=== PATIENT | male | born 1950 | race Caucasian/White ===

== ENCOUNTER 2019-10-29 07:46 | Outpatient (CLI) | payer MEDICARE, SELFPAY ==
[2019-10-29 08:04] LABS: Add Urine Microscopic? NO; Appearance Urine Clear (Clear); Bilirubin Urine Negative (Negative); Blood Urine Negative (Negative); Color Urine Yellow (Yellow); Glucose Urine UA Negative (Negative); Ketones Urine Negative (Negative); Leukocyte Esterase Ur Negative (Negative); Nitrate Urine Negative (Negative); Protein Urine Negative (Negative)
[2019-10-29 08:25] LABS: Creatinine Urine 136.07 mg/dL (40-278); MALB Creatinine Ratio 3.6 mg/g (0-30)
[2019-10-29 08:27] LABS: Hemoglobin A1C 6.2 % (<5.7)
[2019-10-29 09:12] LABS: Alanine Aminotransferase 23 U/L (16-63); Albumin Level 3.8 g/dL (3.4-5.0); Alkaline Phosphatase 70 U/L (46-116); Anion Gap 15.1 mmol/L (7-16); Aspartate Amino Transferase 17 U/L (15-37); Bilirubin,Total 0.5 mg/dL (0.00-1.00); Blood Urea Nitrogen 18 mg/dL (7-18); Calcium 9.1 mg/dL (8.5-10.1); Carbon Dioxide 25 mmol/L (21-32); Chloride 103 mmol/L (98-108); Cholesterol 176 mg/dL (0-200); Creatine Kinase 121 U/L (39-308); Estimated Glomerular Filt Rate > 60; Glucose 113 mg/dL (70-99); HDL Direct 54 mg/dL (40-60); LDL Cholesterol Calculated 105 mg/dL (<130); Osmolality Calculated 290 mOsm/kg (285-295); Potassium 4.1 mmol/L (3.5-5.1); Prostate Specific Antigen 2.4 ng/mL (< OR = 4.0); Sodium 139 mmol/L (136-145); Triglycerides 86 mg/dL (0-150)
== END 2019-10-29 07:47 | disposition home or self-care (01) ==
LOC: CHSLAB 07:47
PROVIDERS: PCP Internal Medicine; Visit Provider Internal Medicine
DX: E78.2 Mixed hyperlipidemia (principal); I10 Essential (primary) hypertension; E11.9 Type 2 diabetes mellitus without complications; Z12.5 Encounter for screening for malignant neoplasm of prostate
CPT/HCPCS: 36415; 80053; 80061; 81003; 82043; 82550; 83036; 84153; G0103

== ENCOUNTER 2019-11-08 12:30 | Outpatient (CLI) | payer MEDICARE, SELFPAY ==
--- NOTE | 2019-12-03 07:58 | WPDHOLTEREM ---
Holter/Event Monitor Holter/Event Monitor Date of procedure: 11/09/19 Procedure Type: 30 day event monitor Indications: Palpitations Conclusion: 1. 24 day event monitor between 11/09/19-12/02/19. There are 33 available transmissions for analysis. 2. Predominant rhythm is sinus rhythm. HR range 43-177 bpm; average HR 68 bpm. 3. There are intermittent premature supraventricular complexes with total burden of 4%. There are 4 episodes of atrial tachycardia, fastest at 122 bpm and longest lasting 6 beats. 4. There are occasional premature ventricular complexes with total burden of <1%. There are 3 episodes of vetricular tachycardia, fastest at 177 bpm and longest lasting 8 beats. 5. No significant pauses greater than 2 seconds. 6. No symptoms available for correlation.
== END 2019-11-08 12:31 | disposition home or self-care (01) ==
LOC: CHSCARD 12:32
PROVIDERS: PCP Internal Medicine; Visit Provider Internal Medicine
DX: I49.9 Cardiac arrhythmia, unspecified (principal); R42 Dizziness and giddiness
CPT/HCPCS: 99199

== ENCOUNTER 2019-12-09 10:01 | Outpatient (CLI) | payer MEDICARE, SELFPAY ==
[2019-12-09 10:14] LABS: Basophils Absolute Auto 0.05 K/mm3 (0.00-0.10); Basophils Percent Auto 0.8 % (0.0-1.0); Eosinophils Absolute Auto 0.22 K/mm3 (0.02-0.50); Eosinophils Percent Auto 3.6 % (1.0-6.0); Hematocrit 45.4 % (37.0-46.0); Hemoglobin 15.6 g/dL (12.4-15.3); Immature Granulocyte Absolute 0.02 K/mm3 (0.00-0.00); Immature Granulocyte Percent A 0.3 % (0.0-0.0); Lymphocytes Absolute Auto 1.78 K/mm3 (1.10-4.50); Lymphocytes Percent Auto 29.5 % (18.0-42.0); Mean Corpuscular HGB Conc 34.4 g/dL (32.0-36.0); Mean Corpuscular Hemoglobin 30.8 pg (27.0-31.0); Mean Corpuscular Volume 89.5 fL (78.0-102.0); Mean Platelet Volume 8.6 fl (8.7-11.0); Monocytes Absolute Auto 0.49 K/mm3 (0.10-0.90); Monocytes Percent Auto 8.1 % (2.0-11.0); Neutrophils Absolute Auto 3.5 K/mm3 (1.7-7.2); Neutrophils Percent Auto 57.7 % (50.0-70.0); Platelet Count Result 238 K/mm3 (150-420); Red Blood Count 5.07 M/mm3 (4.70-6.10); Red Cell Distribution Width 12.5 % (11.6-14.4)
[2019-12-09 10:58] LABS: Anion Gap 11.3 mmol/L (7-16); Blood Urea Nitrogen 12 mg/dL (7-18); Calcium 9.3 mg/dL (8.5-10.1); Carbon Dioxide 26 mmol/L (21-32); Chloride 106 mmol/L (98-108); Estimated Glomerular Filt Rate 60; Free T3 2.76 pg/mL (2.18-3.98); Free T4 Free Thyroxine 1.07 ng/dL (0.76-1.46); Glucose 139 mg/dL (70-99); Magnesium 2.2 mg/dL (1.8-2.4); Osmolality Calculated 289 mOsm/kg (285-295); Potassium 4.3 mmol/L (3.5-5.1); Sodium 139 mmol/L (136-145); Thyroid Stimulating Hormone 2.02 uIU/mL (0.36-3.74)
== END 2019-12-09 10:02 | disposition home or self-care (01) ==
PROVIDERS: PCP Internal Medicine; Visit Provider Internal Medicine
DX: I47.2 Ventricular tachycardia (principal); R53.83 Other fatigue
CPT/HCPCS: 36415; 80048; 83735; 84439; 84443; 84481; 85025

== ENCOUNTER 2019-12-16 12:04 | Outpatient (CLI) | payer MEDICARE, SELFPAY ==
--- NOTE | 2019-12-16 12:13 | ECHO_ITS ---
Patient Info Name: Giovanny Mckeon Age: 69 years : 1950 Gender: Male Ht: 73 in Wt: 235 lbs BSA: 2.37 m2 HR: 65 bpm BP: 152 / 68 mmHg Technical Quality: Fair Exam Date: 12/16/2019 12:26 PM Exam Location: [facility] Patient Status: Outpatient Admit Date: 12/16/2019 Staff Ordering Physician: Alicia, Meño Adan M.D. Lacing String Cutter: Melida Ferrari RDCS Attending Provider: Alicia, Meño Adan M.D. Referring Physician: Alicia BOONE; Exam Type: CA echo doppler color flow Study Info Indications I50.9 - Heart failure, unspecified Complete two-dimensional, color flow and Doppler transthoracic echocardiogram is performed. Strain analysis performed. History/Risk Factors Hypertension: Yes Obesity: Yes Family History: Coronary Artery Disease Summary 1. Left ventricular chamber dimension is normal. 2. Left ventricular systolic function is normal, estimated at 55-60%. 3. There is moderately increased left ventricular wall thickness. 4. The left ventricular diastolic function is abnormal. 5. E/e' 12 is mildly elevated. 6. Left atrial chamber dimension is mildly enlarged. 7. There is mild tricuspid valve regurgitation. 8. No pulmonary hypertension, estimated pulmonary arterial systolic pressure is 30 mmHg. Left Ventricle E/e' 12 is mildly elevated. Left ventricular chamber dimension is normal. Left ventricular systolic function is normal, estimated at 55-60%. There is moderately increased left ventricular wall thickness. The left ventricular diastolic function is abnormal. Right Ventricle Right ventricular chamber dimension is normal. Right ventricular systolic function is normal. Left Atria Left atrial chamber dimension is mildly enlarged. Right Atria Right atrial chamber dimension is normal. Aortic Valve The aortic valve is trileaflet. There is no aortic valve stenosis. There is no aortic valve regurgitation. Pulmonic Valve There is no pulmonic regurgitation. Mitral Valve There is no mitral valve stenosis. There is no mitral valve regurgitation. Tricuspid Valve There is mild tricuspid valve regurgitation. No pulmonary hypertension, estimated pulmonary arterial systolic pressure is 30 mmHg. Pericardium/Pleural There is no pericardial effusion. Inferior Vena Cava Normal inferior vena cava with >50% collapse upon inspiration consistent with normal right atrial pressure, 5 mmHg. Aorta The aortic root size at the sinus of Valsalva is normal. Left Ventricular Outflow Tract Name Value Normal LVOT 2D LVOT Diameter 2.0 cm LVOT Doppler LVOT Peak Velocity 87 cm/s LVOT Peak Gradient 3 mmHg LVOT Mean Gradient 2 mmHg LVOT VTI 19 cm LVOT VTI/AV VTI Ratio 0.7 LVOT Stroke Volume 61 ml Mitral Valve Name Value Normal
== END 2019-12-16 12:05 | disposition home or self-care (01) ==
LOC: CHSIMG 12:05
PROVIDERS: PCP Internal Medicine; Visit Provider Specialist
DX: I47.0 Re-entry ventricular arrhythmia (principal)
CPT/HCPCS: 93306

== ENCOUNTER 2020-02-01 12:03 | Outpatient (CLI) | payer MEDICARE, SELFPAY ==
[2020-02-01 12:17] LABS: Basophils Absolute Auto 0.03 K/mm3 (0.00-0.10); Basophils Percent Auto 0.3 % (0.0-1.0); Eosinophils Percent Auto 2.2 % (1.0-6.0); Hematocrit 37.7 % (37.0-46.0); Hemoglobin 12.4 g/dL (12.4-15.3); Immature Granulocyte Absolute 0.05 K/mm3 (0.00-0.00); Immature Granulocyte Percent A 0.6 % (0.0-0.0); Lymphocytes Absolute Auto 1.24 K/mm3 (1.10-4.50); Lymphocytes Percent Auto 13.7 % (18.0-42.0); Mean Corpuscular HGB Conc 32.9 g/dL (32.0-36.0); Mean Corpuscular Hemoglobin 30.3 pg (27.0-31.0); Mean Corpuscular Volume 92.2 fL (78.0-102.0); Mean Platelet Volume 7.9 fl (8.7-11.0); Monocytes Absolute Auto 0.77 K/mm3 (0.10-0.90); Monocytes Percent Auto 8.5 % (2.0-11.0); Neutrophils Absolute Auto 6.8 K/mm3 (1.7-7.2); Neutrophils Percent Auto 74.7 % (50.0-70.0); Platelet Count Result 430 K/mm3 (150-420); Red Blood Count 4.09 M/mm3 (4.70-6.10); Red Cell Distribution Width 13.2 % (11.6-14.4); White Blood Count 9.1 K/mm3 (4.8-10.8)
[2020-02-01 12:50] LABS: BNP 164 pg/mL (0-100)
[2020-02-01 13:01] LABS: Alanine Aminotransferase 41 U/L (16-63); Albumin Level 3.5 g/dL (3.4-5.0); Alkaline Phosphatase 117 U/L (46-116); Anion Gap 9 mmol/L (8-16); Aspartate Amino Transferase 16 U/L (15-37); Bilirubin,Total 0.4 mg/dL (0.00-1.00); Blood Urea Nitrogen 16 mg/dL (7-18); Calcium 9.1 mg/dL (8.5-10.1); Carbon Dioxide 26 mmol/L (21-32); Chloride 104 mmol/L (98-108); Estimated Glomerular Filt Rate 55; Ferritin 180 ng/mL (26-388); Free T3 1.78 pg/mL (2.18-3.98); Free T4 Free Thyroxine 1.13 ng/dL (0.76-1.46); Glucose 100 mg/dL (70-99); Iron 41 ug/dL (65-175); Magnesium 2.1 mg/dL (1.8-2.4); Osmolality Calculated 289 mOsm/kg (285-295); Percent Iron Saturation 16 % (12-57); Potassium 4.4 mmol/L (3.5-5.1); Sodium 139 mmol/L (136-145); Thyroid Stimulating Hormone 4.12 uIU/mL (0.36-3.74); Total Protein 6.9 g/dL (6.4-8.2)
== END 2020-02-01 12:04 | disposition home or self-care (01) ==
PROVIDERS: PCP Internal Medicine; Visit Provider Internal Medicine
DX: I48.91 Unspecified atrial fibrillation (principal); I50.9 Heart failure, unspecified; I25.10 Atherosclerotic heart disease of native coronary artery without angina pectoris
CPT/HCPCS: 36415; 80053; 82728; 83540; 83550; 83735; 83880; 84439; 84443; 84481; 85025

== ENCOUNTER 2020-03-03 08:11 | Outpatient (CLI) | payer MEDICARE, SELFPAY ==
[2020-03-03 08:27] LABS: Basophils Absolute Auto 0.04 K/mm3 (0.00-0.10); Basophils Percent Auto 0.7 % (0.0-1.0); Eosinophils Absolute Auto 0.24 K/mm3 (0.02-0.50); Eosinophils Percent Auto 4.1 % (1.0-6.0); Hematocrit 40.6 % (37.0-46.0); Hemoglobin 13.3 g/dL (12.4-15.3); Immature Granulocyte Absolute 0.02 K/mm3 (0.00-0.00); Immature Granulocyte Percent A 0.3 % (0.0-0.0); Lymphocytes Absolute Auto 1.57 K/mm3 (1.10-4.50); Lymphocytes Percent Auto 26.7 % (18.0-42.0); Mean Corpuscular HGB Conc 32.8 g/dL (32.0-36.0); Mean Corpuscular Hemoglobin 30.2 pg (27.0-31.0); Mean Corpuscular Volume 92.3 fL (78.0-102.0); Mean Platelet Volume 8.9 fl (8.7-11.0); Monocytes Absolute Auto 0.49 K/mm3 (0.10-0.90); Monocytes Percent Auto 8.3 % (2.0-11.0); Neutrophils Absolute Auto 3.5 K/mm3 (1.7-7.2); Neutrophils Percent Auto 59.9 % (50.0-70.0); Platelet Count Result 242 K/mm3 (150-420); Red Cell Distribution Width 13.4 % (11.6-14.4); White Blood Count 5.9 K/mm3 (4.8-10.8)
[2020-03-03 09:22] LABS: Ferritin 70 ng/mL (26-388); Free T3 2.05 pg/mL (2.18-3.98); Free T4 Free Thyroxine 1.07 ng/dL (0.76-1.46); Iron 57 ug/dL (65-175); Thyroid Stimulating Hormone 3.09 uIU/mL (0.36-3.74)
== END 2020-03-03 08:12 | disposition home or self-care (01) ==
LOC: CHSLAB 08:12
PROVIDERS: PCP Internal Medicine; Visit Provider Internal Medicine
DX: E03.9 Hypothyroidism, unspecified (principal); E61.1 Iron deficiency
CPT/HCPCS: 36415; 82728; 83540; 84439; 84443; 84481; 85025

== ENCOUNTER 2020-05-03 07:57 | Outpatient (CLI) | payer MEDICARE, SELFPAY ==
[2020-05-03 08:06] LABS: Basophils Absolute Auto 0.03 K/mm3 (0.00-0.10); Basophils Percent Auto 0.5 % (0.0-1.0); Eosinophils Absolute Auto 0.36 K/mm3 (0.02-0.50); Eosinophils Percent Auto 6.1 % (1.0-6.0); Hematocrit 43.2 % (37.0-46.0); Hemoglobin 13.9 g/dL (12.4-15.3); Immature Granulocyte Absolute 0.01 K/mm3 (0.00-0.00); Immature Granulocyte Percent A 0.2 % (0.0-0.0); Lymphocytes Absolute Auto 1.56 K/mm3 (1.10-4.50); Lymphocytes Percent Auto 26.6 % (18.0-42.0); Mean Corpuscular HGB Conc 32.2 g/dL (32.0-36.0); Mean Corpuscular Hemoglobin 29.8 pg (27.0-31.0); Mean Corpuscular Volume 92.7 fL (78.0-102.0); Mean Platelet Volume 8.6 fl (8.7-11.0); Monocytes Absolute Auto 0.54 K/mm3 (0.10-0.90); Monocytes Percent Auto 9.2 % (2.0-11.0); Neutrophils Absolute Auto 3.4 K/mm3 (1.7-7.2); Neutrophils Percent Auto 57.4 % (50.0-70.0); Platelet Count Result 212 K/mm3 (150-420); Red Blood Count 4.66 M/mm3 (4.70-6.10); Red Cell Distribution Width 13.2 % (11.6-14.4); White Blood Count 5.9 K/mm3 (4.8-10.8)
[2020-05-03 09:27] LABS: Ferritin 35 ng/mL (26-388); Iron 52 ug/dL (65-175); Percent Iron Saturation 17 % (12-57)
== END 2020-05-03 07:58 | disposition home or self-care (01) ==
LOC: CHSLAB 07:58
PROVIDERS: PCP Internal Medicine; Visit Provider Internal Medicine
DX: D50.9 Iron deficiency anemia, unspecified (principal)
CPT/HCPCS: 36415; 82728; 83540; 83550; 85025

== ENCOUNTER 2020-06-07 09:30 | Outpatient (RCR) | payer MEDICARE, SELFPAY ==
[2020-03-09 15:00] VITALS: BP 137/67; PULSE 65; RESP 16; O2SAT 98; BMI 29.1
== END 2020-06-07 23:59 | disposition home or self-care (01) ==
PROVIDERS: PCP Internal Medicine; Visit Provider Specialist
DX: Z95.1 Presence of aortocoronary bypass graft (principal)
CPT/HCPCS: 93798

== ENCOUNTER 2020-06-09 09:26 | Outpatient (RCR) | payer MEDICARE, SELFPAY | END 2020-06-14 14:46 | disposition home or self-care (01) | PROVIDERS: PCP Internal Medicine; Visit Provider Specialist | DX: Z95.1 Presence of aortocoronary bypass graft (principal) | CPT/HCPCS: 93798 ==

== ENCOUNTER 2020-07-20 07:51 | Outpatient (CLI) | payer MEDICARE, SELFPAY ==
[2020-07-20 08:01] LABS: Basophils Absolute Auto 0.03 K/mm3 (0.00-0.10); Basophils Percent Auto 0.5 % (0.0-1.0); Eosinophils Absolute Auto 0.26 K/mm3 (0.02-0.50); Eosinophils Percent Auto 4.6 % (1.0-6.0); Hematocrit 44.2 % (37.0-46.0); Hemoglobin 14.6 g/dL (12.4-15.3); Immature Granulocyte Absolute 0.01 K/mm3 (0.00-0.00); Immature Granulocyte Percent A 0.2 % (0.0-0.0); Lymphocytes Absolute Auto 1.52 K/mm3 (1.10-4.50); Mean Corpuscular Hemoglobin 30.2 pg (27.0-31.0); Mean Corpuscular Volume 91.3 fL (78.0-102.0); Mean Platelet Volume 8.5 fl (8.7-11.0); Monocytes Absolute Auto 0.47 K/mm3 (0.10-0.90); Monocytes Percent Auto 8.3 % (2.0-11.0); Neutrophils Absolute Auto 3.4 K/mm3 (1.7-7.2); Neutrophils Percent Auto 59.4 % (50.0-70.0); Platelet Count Result 203 K/mm3 (150-420); Red Blood Count 4.84 M/mm3 (4.70-6.10); Red Cell Distribution Width 13.2 % (11.6-14.4); White Blood Count 5.6 K/mm3 (4.8-10.8)
[2020-07-20 08:03] LABS: Appearance Urine Clear (Clear); Bilirubin Urine Negative (Negative); Color Urine Yellow (Yellow); Glucose Urine UA Negative (Negative); Ketones Urine Negative (Negative); Leukocyte Esterase Ur Negative (Negative); Nitrate Urine Negative (Negative); Protein Urine Negative (Negative); Urobilinogen Urine 0.2 mg/dL (0.2-1.0); pH Urine 5.5 (5.0-8.0)
[2020-07-20 08:14] LABS: Creatinine Urine 100.28 mg/dL (40-278); MALB Creatinine Ratio 12.9 mg/g (0-30); Microalbumin Urine Random < 13.0 mg/L
[2020-07-20 08:16] LABS: Add Urine Microscopic? YES; Bacteria Urine Trace /hpf; Blood Urine Trace-Intact (Negative); RBC Urine 0-2 /hpf (0-2); Squamous Epithelial Cell Urine Rare /hpf (Few); WBC Urine None seen /hpf (0-3)
[2020-07-20 08:42] LABS: Hemoglobin A1C 5.3 % (<5.7)
[2020-07-20 09:28] LABS: Alanine Aminotransferase 25 U/L (16-63); Albumin Level 3.9 g/dL (3.4-5.0); Alkaline Phosphatase 66 U/L (46-116); Anion Gap 9 mmol/L (8-16); Aspartate Amino Transferase 22 U/L (15-37); Bilirubin,Total 0.7 mg/dL (0.00-1.00); Blood Urea Nitrogen 17 mg/dL (7-18); Carbon Dioxide 28 mmol/L (21-32); Chloride 104 mmol/L (98-108); Cholesterol 159 mg/dL (0-200); Creatine Kinase 101 U/L (39-308); Estimated Glomerular Filt Rate > 60; Ferritin 62 ng/mL (26-388); Glucose 86 mg/dL (70-99); HDL Direct 53 mg/dL (40-60); Iron 73 ug/dL (65-175); LDL Cholesterol Calculated 93 mg/dL (<130); Osmolality Calculated 292 mOsm/kg (285-295); Percent Iron Saturation 25 % (12-57); Potassium 4.5 mmol/L (3.5-5.1); Sodium 141 mmol/L (136-145); Total Protein 6.7 g/dL (6.4-8.2); Triglycerides 67 mg/dL (0-150)
== END 2020-07-20 07:52 | disposition home or self-care (01) ==
LOC: CHSLAB 07:52
PROVIDERS: PCP Internal Medicine; Visit Provider Internal Medicine
DX: E78.2 Mixed hyperlipidemia (principal); E11.9 Type 2 diabetes mellitus without complications; I10 Essential (primary) hypertension; D50.9 Iron deficiency anemia, unspecified
CPT/HCPCS: 36415; 80053; 80061; 81001; 82043; 82550; 82728; 83036; 83540; 83550; 85025

== ENCOUNTER 2020-11-02 08:27 | Outpatient (CLI) | payer MEDICARE, SELFPAY ==
[2020-11-02 09:14] LABS: Alanine Aminotransferase 29 U/L (16-63); Albumin Level 3.9 g/dL (3.4-5.0); Alkaline Phosphatase 78 U/L (46-116); Anion Gap 12 mmol/L (8-16); Aspartate Amino Transferase 21 U/L (15-37); Bilirubin,Total 0.9 mg/dL (0.00-1.00); Blood Urea Nitrogen 16 mg/dL (7-18); Calcium 9.1 mg/dL (8.5-10.1); Carbon Dioxide 25 mmol/L (21-32); Chloride 103 mmol/L (98-108); Cholesterol 158 mg/dL (0-200); Creatine Kinase 230 U/L (39-308); Estimated Glomerular Filt Rate > 60; Glucose 95 mg/dL (70-99); HDL Direct 57 mg/dL (40-60); LDL Cholesterol Calculated 88 mg/dL (<130); Osmolality Calculated 291 mOsm/kg (285-295); Potassium 4.1 mmol/L (3.5-5.1); Sodium 140 mmol/L (136-145); Total Protein 6.8 g/dL (6.4-8.2); Triglycerides 67 mg/dL (0-150)
[2020-11-02 09:23] LABS: Hemoglobin A1C 5.8 % (<5.7)
== END 2020-11-02 08:28 | disposition home or self-care (01) ==
LOC: CHSLAB 08:29
PROVIDERS: PCP Internal Medicine; Visit Provider Internal Medicine
DX: E11.9 Type 2 diabetes mellitus without complications (principal); E78.2 Mixed hyperlipidemia
CPT/HCPCS: 36415; 80053; 80061; 82550; 83036

== ENCOUNTER 2020-11-24 09:07 | Outpatient (CLI) | payer MEDICARE, SELFPAY ==
[2020-11-24 10:12] LABS: Prostate Specific Antigen 2.5 ng/mL (< OR = 4.0)
== END 2020-11-24 09:08 | disposition home or self-care (01) ==
PROVIDERS: PCP Internal Medicine; Visit Provider Internal Medicine
DX: Z12.5 Encounter for screening for malignant neoplasm of prostate (principal)
CPT/HCPCS: 36415; 84153; G0103

== ENCOUNTER 2020-12-14 16:35 | Outpatient (CLI) | payer MEDICARE, SELFPAY ==
[2020-12-14 16:50] LABS: Basophils Absolute Auto 0.03 K/mm3 (0.00-0.10); Basophils Percent Auto 0.4 % (0.0-1.0); Eosinophils Percent Auto 2.7 % (1.0-6.0); Hematocrit 44.9 % (37.0-46.0); Immature Granulocyte Absolute 0.03 K/mm3 (0.00-0.00); Immature Granulocyte Percent A 0.4 % (0.0-0.0); Lymphocytes Absolute Auto 1.85 K/mm3 (1.10-4.50); Mean Corpuscular HGB Conc 33.4 g/dL (32.0-36.0); Mean Corpuscular Hemoglobin 30.8 pg (27.0-31.0); Mean Corpuscular Volume 92.2 fL (78.0-102.0); Mean Platelet Volume 8.8 fl (8.7-11.0); Monocytes Absolute Auto 0.62 K/mm3 (0.10-0.90); Monocytes Percent Auto 8.4 % (2.0-11.0); Neutrophils Absolute Auto 4.7 K/mm3 (1.7-7.2); Neutrophils Percent Auto 63.1 % (50.0-70.0); Platelet Count Result 232 K/mm3 (150-420); Red Blood Count 4.87 M/mm3 (4.70-6.10); Red Cell Distribution Width 12.8 % (11.6-14.4); White Blood Count 7.4 K/mm3 (4.8-10.8)
[2020-12-14 17:10] LABS: Prothrombin Time 10.4 Seconds (9.50-12.10)
[2020-12-14 17:16] LABS: Partial Thromboplastin Time 25.4 SEC (23.90-30.70)
== END 2020-12-14 16:36 | disposition home or self-care (01) ==
LOC: CHSLAB 16:38
PROVIDERS: PCP Internal Medicine; Visit Provider Internal Medicine
DX: S40.012A Contusion of left shoulder, initial encounter (principal)
CPT/HCPCS: 36415; 85025; 85610; 85730

== ENCOUNTER 2020-12-16 06:39 | Outpatient (CLI) | payer MEDICARE, SELFPAY ==
--- NOTE | ~2020-12-16 | MR_ITS ---
EXAMINATION: MR shoulder LT wo con DATE: 12/16/2020 07:48 INDICATION: Left shoulder pain. TECHNIQUE: Magnetic resonance imaging (MRI) of the left shoulder was performed without intravenous co ntrast. Sequences included axial PD-weighted FS FSE, coronal oblique PD-weighted FS FSE and T2-weight ed FS FSE, and sagittal oblique T2-weighted FS FSE and T1-weighted FSE. COMPARISON: None. FINDINGS: Coracoacromial arch: The acromion undersurface is curved in morphology (type II). There is severe acromioclavicular joint osteoarthritis including fairly directed osteophytes. Subacromial spurring is noted. There is severe subacromial/subdeltoid bursitis. Rotator cuff: There is a full-thickness tear of supraspinatus and infraspinatus tendons measuring 4.9 cm anterior t o posterior by 5.3 cm proximal to distal. Teres minor tendon is normal. There is an articular sided p artial-thickness tear of subscapularis tendon. There is volume loss and mild fatty atrophy of suprasp inatus, infraspinatus, and subscapularis muscle bellies. Biceps tendon and glenoid labrum: There is a complete tear of proximal biceps tendon. There is tearing of the superior and posterior gl enoid labrum. Fluid: There is a large glenohumeral joint effusion. There is a 14 mm fluid collection in posterior deltoid muscle belly that previously measured 11 mm. There are hematomas in lateral deltoid muscle at the lynette tendinous junction. Bones/cartilage: There is deep partial thickness cartilage loss of glenoid and humeral head. IMPRESSION: 1. Massive full-thickness rotator cuff tear. 2. Moderate right humeral joint chondrosis. 3. Severe acromioclavicular joint osteoarthritis. 4. Complete tear of proximal biceps tendon. 5. Severe subacromial/subdeltoid bursitis and large glenohumeral joint effusion. 6. Partial tear of lateral deltoid muscle. Reviewed, dictated and finalized at location A. IMPRESSION: 1. Massive full-thickness rotator cuff tear. 2. Moderate right humeral joint chondrosis. 3. Severe acromioclavicular joint osteoarthritis. 4. Complete tear of proximal biceps tendon. 5. Severe subacromial/subdeltoid bursitis and large glenohumeral joint effusion . 6. Partial tear of lateral deltoid muscle.
== END 2020-12-16 06:40 | disposition home or self-care (01) ==
LOC: CHSIMG 06:41
PROVIDERS: PCP Internal Medicine; Visit Provider Internal Medicine
DX: M25.512 Pain in left shoulder (principal)
CPT/HCPCS: 73221

== ENCOUNTER 2021-05-17 08:18 | Outpatient (CLI) | payer MEDICARE, SELFPAY ==
[2021-05-17 08:40] LABS: Appearance Urine Clear (Clear); Basophils Absolute Auto 0.03 K/mm3 (0.00-0.10); Basophils Percent Auto 0.6 % (0.0-1.0); Bilirubin Urine Negative (Negative); Color Urine Light Yellow (Yellow); Eosinophils Absolute Auto 0.22 K/mm3 (0.02-0.50); Glucose Urine UA Negative (Negative); Hematocrit 46.7 % (37.0-46.0); Hemoglobin 15.7 g/dL (12.4-15.3); Immature Granulocyte Absolute 0.01 K/mm3 (0.00-0.00); Immature Granulocyte Percent A 0.2 % (0.0-0.0); Ketones Urine Negative (Negative); Leukocyte Esterase Ur Negative (Negative); Lymphocytes Absolute Auto 1.39 K/mm3 (1.10-4.50); Lymphocytes Percent Auto 25.6 % (18.0-42.0); Mean Corpuscular HGB Conc 33.6 g/dL (32.0-36.0); Mean Corpuscular Hemoglobin 30.7 pg (27.0-31.0); Mean Corpuscular Volume 91.4 fL (78.0-102.0); Mean Platelet Volume 8.2 fl (8.7-11.0); Monocytes Absolute Auto 0.47 K/mm3 (0.10-0.90); Monocytes Percent Auto 8.6 % (2.0-11.0); Neutrophils Absolute Auto 3.3 K/mm3 (1.7-7.2); Nitrate Urine Negative (Negative); Platelet Count Result 200 K/mm3 (150-420); Protein Urine Negative (Negative); Red Blood Count 5.11 M/mm3 (4.70-6.10); Red Cell Distribution Width 12.7 % (11.6-14.4); Urobilinogen Urine 0.2 mg/dL (0.2-1.0); White Blood Count 5.4 K/mm3 (4.8-10.8); pH Urine 5.5 (5.0-8.0)
[2021-05-17 08:44] LABS: Add Urine Microscopic? YES; Blood Urine Trace-Intact (Negative); RBC Urine None seen /hpf (0-2); WBC Urine None seen /hpf (0-3)
[2021-05-17 08:47] LABS: Bacteria Urine None seen /hpf
[2021-05-17 08:51] LABS: Creatinine Urine 88.21 mg/dL (40-278); MALB Creatinine Ratio 14.7 mg/g (0-30); Microalbumin Urine Random < 13.0 mg/L
[2021-05-17 09:54] LABS: Alanine Aminotransferase 31 U/L (16-63); Albumin Level 3.9 g/dL (3.4-5.0); Alkaline Phosphatase 85 U/L (46-116); Anion Gap 13 mmol/L (8-16); Aspartate Amino Transferase 31 U/L (15-37); Bilirubin,Total 0.8 mg/dL (0.00-1.00); Blood Urea Nitrogen 18 mg/dL (7-18); Calcium 9.1 mg/dL (8.5-10.1); Carbon Dioxide 25 mmol/L (21-32); Chloride 105 mmol/L (98-108); Cholesterol 175 mg/dL (0-200); Creatine Kinase 221 U/L (39-308); Estimated Glomerular Filt Rate > 60; Glucose 104 mg/dL (70-99); HDL Direct 55 mg/dL (40-60); LDL Cholesterol Calculated 105 mg/dL (<130); Osmolality Calculated 297 mOsm/kg (285-295); Potassium 4.3 mmol/L (3.5-5.1); Sodium 143 mmol/L (136-145); Total Protein 6.9 g/dL (6.4-8.2); Triglycerides 73 mg/dL (0-150)
== END 2021-05-17 08:19 | disposition home or self-care (01) ==
LOC: CHSLAB 08:21
PROVIDERS: PCP Internal Medicine; Visit Provider Internal Medicine
DX: E78.2 Mixed hyperlipidemia (principal); E11.9 Type 2 diabetes mellitus without complications; I25.10 Atherosclerotic heart disease of native coronary artery without angina pectoris; I10 Essential (primary) hypertension
CPT/HCPCS: 36415; 80053; 80061; 81001; 82043; 82550; 83036; 85025

== ENCOUNTER 2021-11-05 14:54 | Outpatient (CLI) | payer MEDICARE, SELFPAY ==
--- NOTE | ~2021-11-05 | XR_ITS ---
XR lumbar spine 2-3V 11/05/2021 15:20 Indication: Low back pain Procedure: 3 views lumbar spine Comparison: 12/16/2018 Findings: There is disc narrowing at all lumbar levels. There are prominent regional osteophytes at m ultiple levels, most prominent at L1-2 and L2-3. There is advanced multilevel facet hypertrophy. No f racture, subluxation or spondylolisthesis. Impression: 1: Progression of moderate-severe lumbar spondylosis. Reviewed, dictated and finalized at location A. Impression: 1: Progression of moderate-severe lumbar spondylosis.
== END 2021-11-05 14:55 | disposition home or self-care (01) ==
LOC: CHSIMG 15:01
PROVIDERS: PCP Internal Medicine; Visit Provider Internal Medicine
DX: M54.50 Low back pain, unspecified (principal)
CPT/HCPCS: 72100

== ENCOUNTER 2021-11-08 12:56 | Outpatient (RCR) | payer MEDICARE, SELFPAY ==
--- NOTE | 2021-11-08 13:40 | PTOPEVAL ---
Thank you for referring Giovanny Mckeon to [facility].? The patient is scheduled to be seen for therapy? __3__x/week for 12 visits. Please review, sign, date and return this plan of care CONNOR. I agree with and certify that the following plan of care is medically necessary. Referring Physician Date Admitting Provider: Attending Provider: Johnnie Mcdonough MD Referring Provider: *PT Outpatient Evaluation Start: 11/08/21 12:53 Freq: Status: Active Protocol: Document 11/08/21 12:53 YONATAN (Rec: 11/08/21 13:40 YONATAN [id number]) Therapy Assessment Status Assessment Status Assessment Status Evaluation Outpatient Past Medical History Neurological History Hx Neurological Disorders No Significant History Cardiovascular History Hx Atrial Fibrillation Yes: PAROXYSMAL S/P CABG Hx Cardiac Catheterization Yes Hx Cardiac Surgery Yes: CABG X3 VESSEL 01/18/20 Hx Coronary Artery Bypass Graft Yes Hx Coronary Artery Disease Yes Hx Hypercholesterolemia Yes Hx Hypertension Yes Respiratory History Hx Respiratory Disorders No Significant History Gastrointestinal History Hx Gastrointestinal Disorders No Significant History Genitourinary History Hx Genitourinary Disorders No Significant History Musculoskeletal History Hx Fractures Yes: RIBS Hx Joint Replacement Yes Hx Other Musculoskeletal Disorders Yes: RIGHT ROTATOR CUFF REPAIR Hematological History Hx Hematological Disorders No Significant History Endocrine History Hx Endocrine Disorders No Significant History HEENT History Hx HEENT Disorders No Significant History Integumentary History Hx Skin Disorders No Significant History Reproductive History Hx Reproductive Disorders No Significant History Psychosocial History Hx Depression Yes Pain History History of Any Previous or Ongoing No Significant History Instance of Pain Anesthesia History Hx Anesthesia Reactions No Significant History Other History Hx Cancer Yes Evaluation Information Problem Diagnosis acute low back pain Onset 10/16/21 Subjective Information Pt. reports that on 10/16/21 he Query Text:As Reported By Patient/ did a large amount of walking Family and was doing housework. He recalls the next day having pain down the right leg. He reports that he went to the chiropractor, which only gave mild relief. He pain has since radiated to both legs. He reports aching and tension
== END 2021-11-28 10:46 | disposition home or self-care (01) ==
LOC: CHSPT 12:56
PROVIDERS: PCP Internal Medicine; Visit Provider Internal Medicine
DX: M54.50 Low back pain, unspecified (principal); M47.816 Spondylosis without myelopathy or radiculopathy, lumbar region
CPT/HCPCS: 97014; 97110; 97161; G0283

== ENCOUNTER 2021-12-05 08:31 | Outpatient (CLI) | payer MEDICARE, SELFPAY ==
[2021-12-05 08:55] LABS: Basophils Absolute Auto 0.03 K/mm3 (0.00-0.10); Basophils Percent Auto 0.6 % (0.0-1.0); Eosinophils Absolute Auto 0.23 K/mm3 (0.02-0.50); Eosinophils Percent Auto 4.2 % (1.0-6.0); Hemoglobin 15.6 g/dL (12.4-15.3); Immature Granulocyte Absolute 0.01 K/mm3 (0.00-0.00); Immature Granulocyte Percent A 0.2 % (0.0-0.0); Lymphocytes Absolute Auto 1.44 K/mm3 (1.10-4.50); Lymphocytes Percent Auto 26.5 % (18.0-42.0); Mean Corpuscular HGB Conc 33.9 g/dL (32.0-36.0); Mean Corpuscular Hemoglobin 31.3 pg (27.0-31.0); Mean Corpuscular Volume 92.4 fL (78.0-102.0); Mean Platelet Volume 8.6 fl (8.7-11.0); Monocytes Absolute Auto 0.48 K/mm3 (0.10-0.90); Monocytes Percent Auto 8.8 % (2.0-11.0); Neutrophils Absolute Auto 3.3 K/mm3 (1.7-7.2); Neutrophils Percent Auto 59.7 % (50.0-70.0); Platelet Count Result 215 K/mm3 (150-420); Red Blood Count 4.98 M/mm3 (4.70-6.10); Red Cell Distribution Width 12.9 % (11.6-14.4); White Blood Count 5.4 K/mm3 (4.8-10.8)
[2021-12-05 09:09] LABS: Appearance Urine Clear (Clear); Bilirubin Urine Negative (Negative); Color Urine Light Yellow (Yellow); Glucose Urine UA Negative (Negative); Ketones Urine Negative (Negative); Leukocyte Esterase Ur Negative LEU/UL (Negative); Nitrate Urine Negative (Negative); Protein Urine Negative (Negative); Urobilinogen Urine 0.2 mg/dL (0.2-1.0)
[2021-12-05 09:22] LABS: Add Urine Microscopic? YES; Blood Urine Trace-lysed (Negative); RBC Urine 0-2 /hpf (0-2); WBC Urine None seen /hpf (0-3)
[2021-12-05 09:23] LABS: Bacteria Urine Trace /hpf; Mucus Urine Few /lpf
[2021-12-05 09:35] LABS: Creatinine Urine 91.04 mg/dL (40-278); MALB Creatinine Ratio 14.2 mg/g (0-30); Microalbumin Urine Random < 13.0 mg/L
[2021-12-05 09:40] LABS: Alanine Aminotransferase 29 U/L (16-63); Alkaline Phosphatase 65 U/L (46-116); Anion Gap 8 mmol/L (8-16); Aspartate Amino Transferase 20 U/L (15-37); Bilirubin,Total 0.9 mg/dL (0.00-1.00); Blood Urea Nitrogen 18 mg/dL (7-18); Calcium 9.1 mg/dL (8.5-10.1); Carbon Dioxide 26 mmol/L (21-32); Chloride 106 mmol/L (98-108); Cholesterol 157 mg/dL (0-200); Creatine Kinase 216 U/L (39-308); Estimated Glomerular Filt Rate > 60; Glucose 97 mg/dL (70-99); HDL Direct 59 mg/dL (40-60); LDL Cholesterol Calculated 80 mg/dL (<130); Osmolality Calculated 291 mOsm/kg (285-295); Potassium 4.3 mmol/L (3.5-5.1); Prostate Specific Antigen 2.5 ng/mL (< OR = 4.0); Sodium 140 mmol/L (136-145); Total Protein 6.6 g/dL (6.4-8.2); Triglycerides 88 mg/dL (0-150)
[2021-12-05 09:43] LABS: Hemoglobin A1C 5.9 % (<5.7)
== END 2021-12-05 08:32 | disposition home or self-care (01) ==
LOC: CHSLAB 08:32
PROVIDERS: PCP Internal Medicine; Visit Provider Internal Medicine
DX: E78.5 Hyperlipidemia, unspecified (principal); Z12.5 Encounter for screening for malignant neoplasm of prostate; E11.9 Type 2 diabetes mellitus without complications; N39.0 Urinary tract infection, site not specified; I10 Essential (primary) hypertension
CPT/HCPCS: 36415; 80053; 80061; 81001; 82043; 82550; 83036; 84153; 85025; G0103

== ENCOUNTER 2022-01-16 12:53 | Outpatient (CLI) | payer MEDICARE, SELFPAY | END 2022-01-16 12:54 | disposition home or self-care (01) | LOC: CHSLAB 12:55 | PROVIDERS: PCP Internal Medicine; Visit Provider Internal Medicine | DX: L72.0 Epidermal cyst (principal) | CPT/HCPCS: 88304; 88305 ==

== ENCOUNTER 2022-02-06 09:00 | Day surgery (SDC) | payer MEDICARE, SELFPAY ==
[2021-12-25 15:15] VITALS: BMI 28.7
[2022-01-24 08:24] VITALS: BMI 28.5
[2022-02-06 09:28] VITALS: BP 135/92; PULSE 59; RESP 20; TEMP 36.8; O2SAT 99
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
[2022-02-06 09:44] LABS: Glucose Point of Care 113 mg/dl (65-105)
[2022-02-06] MEDS: LACTATED RINGERS 1,000 ML 150 ML IV CONT (09:45)
--- NOTE | 2022-02-06 10:26 | PM.IMHP ---
H&P: HPI History of Present Illness Date/Time: 02/06/22 10:26 Chief Complaint: history of colon polyps Narrative: this is a 71-year-old man who presents for colonoscopy . his last colonoscopy was 7 years ago. He denies any hematochezia or melena. There is no family history of colon cancer. Review of Systems Review of Systems: All systems reviewed & are unremarkable except as noted in HPI and below Constitutional: Constitutional: Denies chills, Denies fever(s), Denies headache(s) and Denies weight loss Eyes: Eyes: Denies change in vision ENT: Denies dizziness, Denies headache(s), Denies neck mass and Denies throat swelling Cardiovascular: Cardiovascular: Denies chest pain, Denies lightheadedness and Denies dyspnea Respiratory: Respiratory: Denies cough, Denies dyspnea and Denies wheezing Gastrointestinal: Gastrointestinal: Denies abdominal pain, Denies change in bowel habits, Denies nausea and Denies vomiting Genitourinary: Genitourinary: Denies hematuria and Denies dysuria Musculoskeletal: Musculoskeletal: Reports as per HPI Integumentary/Breasts: Skin/Breast: Reports as per HPI Neurologic: Denies dizziness and Denies headache(s) Allergic/Immunologic: Allergic/Immunologic: Denies throat swelling and Denies wheezing [facility] Past Medical History Medical History (Updated 02/06/22 @ 10:27 by Donald Roca DO) Afib CAD (coronary artery disease) Depression Diabetes Hyperlipidemia Hypertension Surgical History Surgical History Hx of CABG Family History Family History Mother Diabetes mellitus Family history of arthritis Father Coronary artery disease Acute myocardial infarction Other Family history of malignant neoplasm Social History Social History Smoking status: Never smoker Alcohol intake: current Drinks per week: 1 Alcohol use details: socially Substance use: never Substance use type: does not use Living arrangements: with family Spiritual care concerns: No Meds Home Medications and Allergies Home Medications Medication Instructions Recorded Confirmed Type PreserVision Lutein 1 cap PO DAILY 01/24/22 02/06/22 History amlodipine 5 mg tablet 5 mg PO DAILY 01/24/22 02/06/22 History atorvastatin 40 mg tablet 40 mg PO HS 01/24/22 02/06/22 History clopidogrel 75 mg tablet 75 mg PO DAILY 01/24/22 02/06/22 History doxycycline hyclate 100 mg capsule 100 mg PO DAILY 01/24/22 02/06/22 History metformin 500 mg tablet,extended 500 mg PO BID 01/24/22 02/06/22 History release 24 hr metoprolol succinate 25 mg 25 mg PO DAILY 01/24/22 02/06/22 History tablet,extended release 24 hr sertraline 50 mg tablet 25 mg PO DAILY 01/24/22 02/06/22 History spironolactone 50 mg tablet 50 mg PO DAILY 01/24/22 01/24/22 History Allergies Allergy/AdvReac Type Severity Reaction Status Date / Time aspirin Allergy Severe Swelling Verified 02/06/22 09:22 of Lip/Tongue/Throat Vital Signs Vital Signs - 24 hr 02/06/22 09:28 Temperature 36.8 C Pulse Rate 59 L Respiratory Rate 20 Blood Pressure 135/92 H Pulse Oximetry 99 Oxygen Delivery Room Air Exam Const: General: no acute distress and alert Orientation/consciousness: patient oriented x3 HENMT: Head: normocephalic and atraumatic Ears: hearing grossly normal bilaterally General nose exam: Normal nares present Mouth: Yes Normal oral and palatal mucosa present Eyes: Periorbital: periorbital findings normal Sclera: sclerae normal EOM: EOMs intact bilaterally Neck: Neck: normal visual inspection, no lymphadenopathy and trachea midline Chest: Chest palpation & inspection: normal inspection of the chest Resp: Effort & Inspection: normal respiratory effort Auscultation: clear to auscultation bilaterally Cardio: Jugular venous dis
[2022-02-06 10:58] VITALS: BP 120/71; PULSE 55; RESP 14; O2SAT 99
[2022-02-06 11:08] VITALS: BP 122/71; PULSE 52; RESP 16; O2SAT 100
[2022-02-06 11:18] VITALS: BP 119/77; PULSE 55; RESP 16
[2022-02-06 11:28] VITALS: BP 131/80; PULSE 52; RESP 18
--- NOTE | 2022-02-06 11:32 | WPDANESPN ---
Anes - Prog Note Post-Op Date/Time: 02/06/22 11:32 Cardiovascular status: normal Respiratory status: normal Airway patency: baseline Mental status: baseline Post-Op hydration status: normal Vital Signs: Last Vital Signs Temp 36.8 C 02/06/22 09:28 Pulse 52 L 02/06/22 11:08 Resp 16 02/06/22 11:08 BP 122/71 02/06/22 11:08 Pulse Ox 100 02/06/22 11:08 O2 Del Method Room Air 02/06/22 11:08 Pain Score (VAS): 0 I/O: Intake & Output 02/05/22 02/06/22 02/06/22 23:59 07:59 15:59 Intake Total 500 Balance 500 02/06/22 09:41 POC Capillary Glucose 113 H Patient Feedback: Patient satisfied with anesthetic care.
== END 2022-02-06 11:35 | disposition home or self-care (01) ==
PROVIDERS: PCP Internal Medicine; Visit Provider Surgery
PROC: 0DJD8ZZ Inspection of Lower Intestinal Tract, Via Natural or Artificial Opening Endoscopic (ICD-10-PCS; CPT 45378; principal; 2022-02-06 11:00)
DX: Z86.010 Personal history of colon polyps (principal)
CPT/HCPCS: 45385; 45380

== ENCOUNTER 2022-02-06 13:00 | Outpatient (NON) | payer MEDICARE, SELFPAY | END 2022-02-06 13:01 | disposition home or self-care (01) | PROVIDERS: PCP Internal Medicine; Visit Provider Surgery | DX: D12.6 Benign neoplasm of colon, unspecified (principal); Z86.010 Personal history of colon polyps | CPT/HCPCS: 88305 ==

== ENCOUNTER 2022-06-04 09:59 | Outpatient (CLI) | payer MEDICARE, SELFPAY ==
--- NOTE | 2022-06-04 11:00 | NEURO_ITS ---
Impression: # Complains of numbness of hands. # bilateral severe Carpal Tunnel Syndrome, left more than right. # No ulnar neuropathy. # Needle/EMG exam revealed neurogenic changes in proximal muscle as well of left upper extremity raising the possibility of higher /cervical involvement; MRI of C-spine recommended. Motor Nerve Conduction Upper Extremities Median Nerve Conduction Velocity (m/sec) Terminal Latency (msec) Response Voltage(mV) Elbow-Wrist Wrist Elbow Wrist Right 56 5.5 2 1 Left 55 8.2 2 2 Ulnar Nerve Conduction Velocity (m/sec) Terminal Latency (msec) Response Voltage(mV) Above Elbow Below Elbow Wrist Above Elbow Below Elbow Wrist Right 56 2.8 3 5 Left 58 2.8 2 4 F-Wave Latency Median (ms) Ulnar (ms) Right 32.0 31.6 Left 32.8 32.6 Sensory Nerve Conduction Upper Extremities Median Nerve Stimulation Terminal Latency (msec) Wrist/Digit Response Voltage (uV) Wrist Right NR/7.0 NR/12 Left NR/NR NR/NR Ulnar Nerve Stimulation Terminal Latency (msec) Wrist/Digit Response Voltage (uV) Wrist Right 3.2 37 Left 3.2 30 Radial Nerve Terminal Latency (msec) Response Voltage(mV) Right 2.7 19 Left 2.5 10 Left Right Muscles Examined Fibrillation Fasciculation Scarcity Voltage Duration Left Right Left Right Left Right Left Right Left Right Deltoid X Biceps Reduced >12ms X X Brachioradialis Reduced >12ms Triceps X X Pronator Teres X X Ext Indicis X X Ext Digitorum X X Abd Poll Brev Reduced >12ms X X 1st Dorsal Interosseus Reduced >12ms Paraspinals MTDD
== END 2022-06-04 10:00 | disposition home or self-care (01) ==
LOC: ANHNEURO 10:00
PROVIDERS: PCP Internal Medicine; Visit Provider Internal Medicine
DX: G56.03 Carpal tunnel syndrome, bilateral upper limbs (principal)
CPT/HCPCS: 95886; 95911

== ENCOUNTER 2022-06-13 15:26 | Outpatient (CLI) | payer MEDICARE, SELFPAY ==
--- NOTE | ~2022-06-13 | XR_ITS ---
EXAMINATION: XR_[id number]_CR DATE: 06/13/2022 15:47 INDICATION: Osteoarthritis of cervical spine. TECHNIQUE: 3 views of cervical spine on 4 radiographs were obtained. COMPARISON: None. FINDINGS: There is kyphosis of cervical spine. Vertebral body heights are normal. There is severely d ecreased disc height from C4-C5 through C6-C7. There is multilevel uncovertebral joint osteoarthritis , severe bilaterally from C4-C5 through C6-C7. There is multilevel facet joint osteoarthritis, severe on the left at C3-C4. There is mild central canal stenosis at C3-C4, C4-C5, C5-C6, and C6-C7. No pre vertebral soft tissue swelling. IMPRESSION: 1. Severe cervical spondylosis. Reviewed, dictated and finalized at location A. GRADER
== END 2022-06-13 15:27 | disposition home or self-care (01) ==
LOC: CHSIMG 15:29
PROVIDERS: PCP Internal Medicine; Visit Provider Internal Medicine
DX: M85.88 Other specified disorders of bone density and structure, other site (principal); M43.02 Spondylolysis, cervical region
CPT/HCPCS: 72040

== ENCOUNTER 2022-06-14 08:00 | Outpatient (CLI) | payer MEDICARE, SELFPAY ==
[2022-06-14 08:25] LABS: Basophils Absolute Auto 0.05 K/mm3 (0.00-0.10); Basophils Percent Auto 0.8 % (0.0-1.0); Eosinophils Absolute Auto 0.34 K/mm3 (0.02-0.50); Eosinophils Percent Auto 5.6 % (1.0-6.0); Hematocrit 45.5 % (37.0-46.0); Hemoglobin 15.4 g/dL (12.4-15.3); Immature Granulocyte Absolute 0.01 K/mm3 (0.00-0.00); Immature Granulocyte Percent A 0.2 % (0.0-0.0); Lymphocytes Absolute Auto 1.54 K/mm3 (1.10-4.50); Lymphocytes Percent Auto 25.4 % (18.0-42.0); Mean Corpuscular HGB Conc 33.8 g/dL (32.0-36.0); Mean Corpuscular Hemoglobin 30.7 pg (27.0-31.0); Mean Corpuscular Volume 90.6 fL (78.0-102.0); Mean Platelet Volume 8.7 fl (8.7-11.0); Monocytes Percent Auto 8.3 % (2.0-11.0); Neutrophils Absolute Auto 3.6 K/mm3 (1.7-7.2); Neutrophils Percent Auto 59.7 % (50.0-70.0); Platelet Count Result 192 K/mm3 (150-420); Red Blood Count 5.02 M/mm3 (4.70-6.10); Red Cell Distribution Width 12.6 % (11.6-14.4); White Blood Count 6.1 K/mm3 (4.8-10.8)
[2022-06-14 08:31] LABS: Add Urine Microscopic? NO; Appearance Urine Clear (Clear); Bilirubin Urine Negative (Negative); Blood Urine Negative (Negative); Color Urine Light Yellow (Yellow); Glucose Urine UA Negative (Negative); Ketones Urine Negative (Negative); Leukocyte Esterase Ur Negative (Negative); Nitrate Urine Negative (Negative); Protein Urine Negative (Negative); Urobilinogen Urine 0.2 mg/dL (0.2-1.0)
[2022-06-14 08:35] LABS: Creatinine Urine 79.21 mg/dL (40-278); MALB Creatinine Ratio 16.4 mg/g (0-30); Microalbumin Urine Random < 13.0 mg/L
[2022-06-14 09:18] LABS: Alanine Aminotransferase 28 U/L (16-63); Albumin Level 3.7 g/dL (3.4-5.0); Alkaline Phosphatase 74 U/L (46-116); Anion Gap 7 mmol/L (8-16); Aspartate Amino Transferase 21 U/L (15-37); Bilirubin,Total 0.7 mg/dL (0.00-1.00); Blood Urea Nitrogen 14 mg/dL (7-18); Calcium 8.7 mg/dL (8.5-10.1); Carbon Dioxide 27 mmol/L (21-32); Chloride 107 mmol/L (98-108); Cholesterol 153 mg/dL (0-200); Creatine Kinase 189 U/L (39-308); Estimated Glomerular Filt Rate > 60; Glucose 101 mg/dL (70-99); HDL Direct 52 mg/dL (40-60); LDL Cholesterol Calculated 86 mg/dL (<130); Osmolality Calculated 292 mOsm/kg (285-295); Potassium 4.3 mmol/L (3.5-5.1); Sodium 141 mmol/L (136-145); Total Protein 6.5 g/dL (6.4-8.2); Triglycerides 76 mg/dL (0-150)
== END 2022-06-14 08:01 | disposition home or self-care (01) ==
LOC: CHSLAB 08:02
PROVIDERS: PCP Internal Medicine; Visit Provider Internal Medicine
DX: E78.2 Mixed hyperlipidemia (principal); I10 Essential (primary) hypertension; E11.9 Type 2 diabetes mellitus without complications; R13.12 Dysphagia, oropharyngeal phase
CPT/HCPCS: 36415; 80053; 80061; 81003; 82043; 82550; 83036; 85025

== ENCOUNTER 2022-07-04 06:46 | Outpatient (CLI) | payer MEDICARE, SELFPAY ==
--- NOTE | ~2022-07-04 | MR_ITS ---
MRI of the cervical spine Clinical History: Abnormal nerve conduction Technique: Axial T2-weighted and gradient images, and sagittal T1-weighted, T2-weighted, and STIR leoncio ges were acquired. Findings: There is minimal reversal normal cervical lordosis. No fracture identified. Minimal grade 1 anterolisthesis of C3 over C4 noted. There are mild reactive marrow signal changes due to underlying degenerative disc disease. At C2-C3, there is no disc bulge or herniation. No spinal canal stenosis, cord compression, or neural foraminal narrowing. At C3-C4, disc osteophyte complex results in mild canal stenosis and probable minimal flattening of t he ventral cord. Facet joint hypertrophy contributes to bilateral neural foraminal narrowing, left wo rse than right. At C4-C5, disc osteophyte complex results in moderate canal stenosis and moderate cord compression, e specially on the left side of the cord. Facet joint arthropathy contributes to bilateral neural warren inal narrowing. At C5-C6, disc osteophyte complex results in moderate to severe spinal canal stenosis and cord compre ssion. Bilateral neural foramina are significantly narrowed. At C6-C7, disc osteophyte complex results in mild canal stenosis and mild to moderate cord compressio n. There is bilateral neural foraminal narrowing with facet arthropathy, right worse than left. No abnormal signal in the spinal cord itself. Paravertebral soft tissues are unremarkable. Impression: Severe degenerative spondylosis, as detailed above. There is moderate to severe cord compression at C 5-C6, moderate cord compression at C4-C5, and mild to moderate cord compression at C6-C7. No spinal c ord edema evident. Multilevel neural foraminal narrowing throughout the cervical spine, as detailed above. Mild canal stenosis and ventral cord flattening at C3-C4. Reviewed, dictated and finalized at [facility]. ON WEIGHER Impression: Severe degenerative spondylosis, as detailed above. There is moderate to severe cord compression at C5-C6, moderate cord compression at C4-C5, and mild to mod erate cord compression at C6-C7. No spinal cord edema evident. Multilevel neural foraminal narrowing throughout the cervical spine, as detaile d above. Mild canal stenosis and ventral cord flattening at C3-C4.
== END 2022-07-04 06:47 | disposition home or self-care (01) ==
LOC: CHSIMG 06:46
PROVIDERS: PCP Internal Medicine; Visit Provider Internal Medicine
DX: M54.12 Radiculopathy, cervical region (principal); M43.02 Spondylolysis, cervical region; M48.02 Spinal stenosis, cervical region
CPT/HCPCS: 72141

== ENCOUNTER 2022-11-01 10:17 | Outpatient (CLI) | payer MEDICARE, SELFPAY ==
--- NOTE | 2022-11-01 10:30 | ECG_ITS ---
Measurements Intervals [place] Rate: 55 P: 76 MT: 189 QRS: -31 QRSD: 104 T: 12 QT: 446 QTc: 430 Interpretive Statements SINUS BRADYCARDIA LEFT AXIS DEVIATION [QRS AXIS < -30] BORDERLINE ECG NO PREVIOUS ECG AVAILABLE FOR COMPARISON Electronically Signed On 11-01-2022 16:22:06 CDT by Mateus Abbott M.D.
[2022-11-01 11:01] LABS: Anion Gap 7 mmol/L (8-16); Blood Urea Nitrogen 16 mg/dL (7-18); Calcium 9.3 mg/dL (8.5-10.1); Carbon Dioxide 30 mmol/L (21-32); Chloride 104 mmol/L (98-108); Estimated Glomerular Filt Rate > 60; Glucose 114 mg/dL (70-99); Osmolality Calculated 294 mOsm/kg (285-295); Potassium 4.4 mmol/L (3.5-5.1); Sodium 141 mmol/L (136-145)
== END 2022-11-01 10:18 | disposition home or self-care (01) ==
LOC: CHSLAB 10:18
PROVIDERS: PCP Neurological Surgery; Visit Provider Anesthesiology
DX: Z01.818 Encounter for other preprocedural examination (principal); E11.9 Type 2 diabetes mellitus without complications; I10 Essential (primary) hypertension; R00.1 Bradycardia, unspecified
CPT/HCPCS: 36415; 80048; 93005

== ENCOUNTER 2022-11-04 03:49 | Emergency (ER) | payer MEDICARE, SELFPAY ==
[2022-11-04] VITALS (16 sets, daily range): BP systolic 97–155; BP diastolic 60–86; PULSE 30–69; RESP 13–18; TEMP 36.2–36.6; O2SAT 92–100
--- NOTE | ~2022-11-04 | XR_ITS ---
Portable chest x-ray Comparison: None Clinical History: Chest pain Findings: Lungs are clear, without focal consolidation or pleural effusion. Cardiomediastinal silho uette is unremarkable, status post CABG. Bones and soft tissues are unremarkable. Impression: Clear lungs. Status post CABG. Reviewed, dictated and finalized at location . Impression: Clear lungs. Status post CABG.
--- NOTE | ~2022-11-04 | CT_ITS ---
Clinical Indication: Chest pain, elevated d-dimer CT Scan of the Chest with Contrast: Technique: Contiguous sections were acquired throughout the chest after intravenous administration of 100 cc of Omnipaque 350. Dose reduction technique was used on this scan by utilizing automated expos ure control and iterative reconstruction technique. The dose-length product (DLP) was 631.89 mGy-cm. Findings: There is no evidence of any significant mediastinal, hilar or axillary lymphadenopathy. There is no f illing defect in the pulmonary arterial tree to suggest pulmonary embolus. There is no evidence of ao rtic dissection or aneurysm. There is no evidence of pleural or pericardial effusion. There are several subcentimeter pleural-based peripheral pulmonary nodules, measuring up to 4-5 mm in maximum diameter. Images through the upper abdomen reveal multiple small calcified gallstones. 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 Impression: No evidence of pulmonary embolus, aortic dissection, or aortic aneurysm. Several peripheral, pleural-based subcentimeter pulmonary nodules. According to Fleischner Society cr iteria, no further follow-up required for a low-risk patient. For a high-risk patient, consider 12 mo nth follow-up CT. Cholelithiasis. Reviewed, dictated and finalized at location . Impression: No evidence of pulmonary embolus, aortic dissection, or aortic aneurysm. Several peripheral, pleural-based subcentimeter pulmonary nodules. According to Fleischner Society criteria, no further follow-up required for a low-risk jeanette ent. For a high-risk patient, consider 12 month follow-up CT. Cholelithiasis.
--- NOTE | 2022-11-04 03:55 | ECG_ITS ---
Measurements Intervals [place] Rate: 52 P: 249 [place]: 98 QRS: -27 QRSD: 103 T: -1 QT: 462 QTc: 432 Interpretive Statements ELECTRONIC ATRIAL PACEMAKER BORDERLINE LEFT AXIS DEVIATION [QRS AXIS < -20] MODERATE VOLTAGE CRITERIA FOR LVH, CONSIDER NORMAL VARIANT [MEETS CRITERIA IN ONE OF: R(aVL), S(V1), R(V5), R(V5/V6)+S(V1)] ABNORMAL ECG COMPARED TO ECG 11/01/2022 10:42:59 NO SIGNIFICANT CHANGES Electronically Signed On 11-04-2022 10:44:24 CDT by George Lundy M.D.
--- NOTE | 2022-11-04 03:59 | ECG_ITS ---
Measurements Intervals [place] Rate: 50 P: 35 [place]: 193 QRS: -26 QRSD: 104 T: -1 QT: 476 QTc: 435 Interpretive Statements SINUS BRADYCARDIA WITH SINUS ARRHYTHMIA BORDERLINE LEFT AXIS DEVIATION [QRS AXIS < -20] LOW QRS VOLTAGE IN PRECORDIAL LEADS [QRS DEFLECTION < 1.0 mV IN CHEST LEADS] PATTERN CONSISTENT WITH PULMONARY DISEASE MODERATE VOLTAGE CRITERIA FOR LVH, CONSIDER NORMAL VARIANT [MEETS CRITERIA IN ONE OF: R(aVL), S(V1), R(V5), R(V5/V6)+S(V1)] NONSPECIFIC T-WAVE ABNORMALITY ABNORMAL ECG Electronically Signed On 11-04-2022 10:44:39 CDT by George Lundy M.D.
[2022-11-04] MEDS: NITROGLYCERIN SL 0.4 MG TABLET SUBLINGUAL (04:32)
[2022-11-04 04:45] LABS: Hematocrit 45.2 % (37.0-46.0); Hemoglobin 15.1 g/dL (12.4-15.3); Mean Corpuscular HGB Conc 33.4 g/dL (32.0-36.0); Mean Corpuscular Hemoglobin 31.3 pg (27.0-31.0); Mean Corpuscular Volume 93.6 fL (78.0-102.0); Mean Platelet Volume 9.1 fl (8.7-11.0); Platelet Count Result 202 K/mm3 (150-420); Red Blood Count 4.83 M/mm3 (4.70-6.10); Red Cell Distribution Width 12.7 % (11.6-14.4); White Blood Count 6.2 K/mm3 (4.8-10.8)
--- NOTE | 2022-11-04 04:47 | ECG_ITS ---
Measurements Intervals [place] Rate: 52 P: 64 [place]: 211 QRS: -23 QRSD: 99 T: 2 QT: 477 QTc: 444 Interpretive Statements SINUS BRADYCARDIA WITH FIRST DEGREE AV BLOCK BORDERLINE LEFT AXIS DEVIATION [QRS AXIS < -20] NONSPECIFIC T-WAVE ABNORMALITY ABNORMAL ECG Electronically Signed On 11-04-2022 10:45:05 CDT by George Lundy M.D.
[2022-11-04 04:54] LABS: INR 0.9; Partial Thromboplastin Time 25.2 SEC (23.90-30.70); Prothrombin Time 10.3 Seconds (9.50-12.10)
[2022-11-04 04:56] LABS: Alanine Aminotransferase 21 U/L (16-63); Albumin Level 3.5 g/dL (3.4-5.0); Alkaline Phosphatase 67 U/L (46-116); Anion Gap 9 mmol/L (8-16); Aspartate Amino Transferase 14 U/L (15-37); Bilirubin,Total 0.6 mg/dL (0.00-1.00); Blood Urea Nitrogen 16 mg/dL (7-18); Calcium 8.7 mg/dL (8.5-10.1); Carbon Dioxide 26 mmol/L (21-32); Chloride 106 mmol/L (98-108); Estimated CRCL calculation 70 ml/min; Estimated Glomerular Filt Rate > 60; Glucose 95 mg/dL (70-99); Lipase 54 U/L (16-77); Magnesium 1.7 mg/dL (1.8-2.4); Osmolality Calculated 293 mOsm/kg (285-295); Sodium 141 mmol/L (136-145); Total Protein 7.1 g/dL (6.4-8.2); Troponin I 6.3 ng/L (0.00-60.4)
[2022-11-04 04:57] LABS: D Dimer 0.73 mg/L (0.19-0.50)
[2022-11-04] MEDS: SODIUM CHLORIDE 0.9% IV 500 ML (04:57)
[2022-11-04 04:59] LABS: Lactic Acid Reflex 1.1 mmol/L (0.4-2.0)
--- NOTE | 2022-11-04 05:03 | PC.NURSE ---
At 0441, pt came to the desk stating that the pt was having blurred vision and did not feel well. This RN and Dr. Turcios to the bedside immediately where the pt was pale and diaphoretic. Pt HR dropped to 30 and his blood pressure to 97/60. Pt stopped answering questions briefly and appeared to be unconscious. Pt placed in reverse Trendelenburg and after approximately 30 seconds, his HR began to rise back up to 50. Pt next cycled blood pressure read 131/84 and pt became more alert. A 500ml bolus of NS was initiated. Crash cart brought to bedside and 0.5 mg of atropine drawn up furnishings conservator in case of another episode of bradycardia.
--- NOTE | 2022-11-04 05:12 | ED.CHESTPAIN ---
HPI - Chest Pain General Chief Complaint: Chest Pain Stated Complaint: Heart Source: patient and family Mode of arrival: ambulatory Limitations: no limitations History of Present Illness HPI narrative: 72-year-old white male woke up was lying in bed took a deep breath and felt a tearing sensation in his left chest with his deep breath that lasted for about 10 seconds. Then it was gone he will got up to go the bathroom. It happened 2 other times at home when he took a deep breath each time lasting about 10 seconds. They woke up his to bring him to the emergency department for evaluation. Denies any pain here in the emergency department even when he takes a deep breath. Patient has a history of coronary artery bypass graft x3 in 2019 in [place] did not have any heart attack AFib congestive heart failure. Patient had a heart monitor back in 2019 in October had some skipping beats which led to an echocardiogram in December which led to a CT with dye which led to his heart catheterization which led to his coronary artery bypass graft x3 later he had a fast heart rate of 160-180 but he does not recollect any history of atrial fib nor does his he went home the next day and then he went to rehab and is pulse dropped in the 40s so they changed his medicines. patient states he saw his event technician in July was given a good bill of health. He is scheduled for carpal tunnel this week was just told to stay off his Plavix until after the surgery. Denies any dyspnea on exertion and shortness of breath cough fever sore throat runny nose rash or itching bleeding or bruising dizziness or lightheadedness problems voiding or stooling problems eating or drinking lumps or bumps or swelling problems walking talking seeing or hearing. Does have bilateral pain in his hands from carpal tunnel he is scheduled to have surgery next week. He walks 1-6 miles a day without any exertional pain or shortness of breath has not had any history of venous thromboembolism. 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, then surgery for to remove scar tissue in his deep groin, knee surgery biceps tendon surgery on his right arm, nasal surgery cataracts rotator cuff the left side biceps tendon on the left side allergies aspirin causes his mouth the tongue to swell Related Data Home Medications Medication Instructions Recorded Confirmed PreserVision Lutein 1 cap PO DAILY 01/24/22 11/04/22 amlodipine 5 mg tablet 5 mg PO DAILY 01/24/22 11/04/22 atorvastatin 40 mg tablet 40 mg PO HS 01/24/22 11/04/22 clopidogrel 75 mg tablet 75 mg PO DAILY 01/24/22 11/04/22 doxycycline hyclate 100 mg capsule 100 mg PO DAILY 01/24/22 11/04/22 metformin 500 mg tablet,extended 500 mg PO BID 01/24/22 11/04/22 release 24 hr metoprolol succinate 25 mg 25 mg PO DAILY 01/24/22 11/04/22 tablet,extended release 24 hr sertraline 50 mg tablet 25 mg PO DAILY 01/24/22 11/04/22 spironolactone 50 mg tablet 25 mg PO DAILY 01/24/22 11/04/22 Allergies Allergy/AdvReac Type Severity Reaction Status Date / Time aspirin Allergy Severe Swelling Verified 11/04/22 03:54 of Lip/Tongue/Throat Review of Systems Review of Systems: All systems reviewed & are unremarkable except as noted in HPI and below Constitutional: Constitutional: Reports no additional constitutional complaints Eyes: Eyes: Reports no additional eye complaints ENT: Reports system reviewed and no additional complaints, except as documented Cardiovascular: Cardiovascular: Reports as per HPI Respiratory: Respiratory: Reports as per HPI Gastrointestinal: Gastrointestinal: Reports as per HPI Genitourinary: Genitourinary: Reports as per HPI Musculoskeletal: Musculoskeletal: Reports no additional musculoskeletal com
[2022-11-04] MEDS: SODIUM CHLORIDE 0.9% IV 1,000 ML 999 ML IV CONT (05:35)
[2022-11-04] MEDS: MAGNESIUM SULF 2 GM/WATER 50ML 2 GM/50 ML BAG IVPB (05:37)
[2022-11-04 06:33] LABS: Troponin I 4.9 ng/L (0.00-60.4)
== END 2022-11-04 07:06 | disposition home or self-care (01) ==
PROVIDERS: Emergency Provider Emergency Medicine; PCP Internal Medicine
DX: R07.1 Chest pain on breathing (principal); R55 Syncope and collapse; T46.3X5A Adverse effect of coronary vasodilators, initial encounter; E11.9 Type 2 diabetes mellitus without complications; I25.810 Atherosclerosis of coronary artery bypass graft(s) without angina pectoris; I10 Essential (primary) hypertension; F32.A Depression, unspecified; E78.5 Hyperlipidemia, unspecified; I48.91 Unspecified atrial fibrillation; Z79.84 Long term (current) use of oral hypoglycemic drugs; Z95.1 Presence of aortocoronary bypass graft
CPT/HCPCS: 36415; 71045; 71275; 80053; 83605; 83690; 83735; 84484; 85027; 85380; 85610; 85730; 93005; 96365; 99284; A9270; J0461; J3475; J7030; J7040; Q9967

== ENCOUNTER 2022-11-07 01:29 | Day surgery (SDC) | payer MEDICARE, SELFPAY ==
--- NOTE | 2022-10-31 14:38 | PC.NURSE ---
Report to the Outpatient Waiting Room, entrance under the green pavilion located off [facility], at time _1200 on date __11/07/22 . Planned Procedure Time: 1400 . Time changes happen often and if your time is changed the preop area will call you the afternoon before. - You and your visitor will be asked to self-screen and do not enter if you have any COVID symptoms. - A mask is optional within the hospital at this time. Patients may have clear liquids (water, carbonated beverages, clear teas, apple juice) until 3 hours prior to surgery with a maximum of 20 ounces. - No food from midnight until time of surgery - Infants may have breast milk until 4 hours before surgery, infant formula 6 hours prior to surgery. - Children will be allowed to drink immediately following surgery. If applicable, please bring a bottle or sippy cup to assist with drinking. Juice, water, soda, and popsicles are readily available. For infants on formula, please bring formula the day of surgery. Pacifiers are allowed. Take the following medications with a SIP of water the morning of surgery: ____AMLODIPINE,METOPROLOL,SERTRALINE DO NOT STOP ANY OF YOUR OTHER PRESCRIPTION MEDICATIONS PRIOR TO SURGERY ?EXCEPT THE FOLLOWING Medications to discontinue per physician ____PLAVIX 7 DAYS PRE OP PER DR VELÁZQUEZ.LAST DOSE 10/31/22. ALL VITAMINS 3 DAYS PRE OP.LAST DOSE 11/04/22 Please no make-up, nail slovak, hairspray, perfume, deodorant, or body powder the day of surgery. No jewelry (including any body piercings) or valuables the day of surgery, leave them at home. Please take a shower or bath the night before, or the morning of, surgery with an antibacterial soap. Wear comfortable, loose fitting clothing. Children are encouraged to wear pajamas. - Jewelry must be removed prior to entering the operating room. Rings and piercings that are not removed may be cut off. - The hospital will not accept responsibility for valuables. - Please leave all valuables, including medications, at home the day of surgery. If you are going home after surgery, a licensed operator and truck driver must drive you home. - NO public transportation without another adult if you receive anesthesia. - We recommend that an adult stay with you for 24 hours following discharge. - We also recommend that you do not drive, make important decision, drink alcoholic beverages, or take any drugs that were not prescribed by your health care provider for at least 24 hours after your discharge time. For Pediatric surgeries, we recommend two adults accompany the child home. Follow any additional instructions given to you from your surgeon. If you or anyone in your household have experienced Covid symptoms in the past week, please notify your surgeon or the nurse liaison at the phone number below for possible testing. Telephone instructions given to ____PATIENT and asked if any additional questions and then verbalized understanding. Patient advised to call surgeon office or pre surgery nurse liaison [phone] if any additional questions.
[2022-10-31 14:53] VITALS: BMI 29.0
[2022-11-07] MEDS: LACTATED RINGERS 1,000 ML 30 ML IV CONT (12:30)
[2022-11-07 12:45] VITALS: BP 120/65; PULSE 54; RESP 16; TEMP 36.4; O2SAT 98
[2022-11-07 12:59] LABS: Glucose Point of Care 107 mg/dl (65-105)
--- NOTE | 2022-11-07 13:00 | SUR.PREOP ---
Discussed delay with patient and his .
--- NOTE | 2022-11-07 13:43 | SUR.PREOP ---
Informed patient last case started 1.5 hours late. Up to bathroom.
--- NOTE | 2022-11-07 14:37 | WPDANESEPPF ---
Anes - Initial Pre Proc Eval Procedure: Operation Date: 11/07/22 14:00 Proposed Procedures p Right Carpal Tunnel Release - Parmjit Paulino MD Date/Time: 11/07/22 14:37 Surgeon: Parmjit Paulino MD Pre Op Diagnosis: right carpal tunnel syndrome Patient Data Age: 72 Gender: M Height: 1.85 m Weight: 100.3 kg Last Vital Signs Temp 36.4 C 11/07/22 12:45 Pulse 54 L 11/07/22 12:45 Resp 16 11/07/22 12:45 BP 120/65 11/07/22 12:45 Pulse Ox 98 11/07/22 12:45 O2 Del Method Room Air 11/07/22 12:45 Allergies Allergy/AdvReac Type Severity Reaction Status Date / Time aspirin Allergy Severe Swelling Verified 11/04/22 03:54 of Lip/Tongue/Throat Home Medications Medication Instructions Recorded Confirmed Type PreserVision Lutein 1 cap PO DAILY 01/24/22 11/04/22 History amlodipine 5 mg tablet 5 mg PO DAILY 01/24/22 11/04/22 History atorvastatin 40 mg tablet 40 mg PO HS 01/24/22 11/04/22 History clopidogrel 75 mg tablet 75 mg PO DAILY 01/24/22 11/04/22 History doxycycline hyclate 100 mg capsule 100 mg PO DAILY 01/24/22 11/04/22 History metformin 500 mg tablet,extended 500 mg PO BID 01/24/22 11/04/22 History release 24 hr metoprolol succinate 25 mg 25 mg PO DAILY 01/24/22 11/04/22 History tablet,extended release 24 hr sertraline 50 mg tablet 25 mg PO DAILY 01/24/22 11/04/22 History spironolactone 50 mg tablet 25 mg PO DAILY 01/24/22 11/04/22 History Laboratory Tests 11/07/22 12:57 POC Capillary Glucose 107 H mg/dl (65-105) Patient hx anesthesia problems: none Family hx anesthesia problems: none Results Review: All pre-operative results and documents have been reviewed as part of the pre-operative evaluation. [facility] Past Medical History Medical History Afib CAD (coronary artery disease) Depression Diabetes Hyperlipidemia Hypertension Surgical History Surgical History Hx of CABG Family History Family History Mother Diabetes mellitus Family history of arthritis Father Coronary artery disease Acute myocardial infarction Other Family history of malignant neoplasm Social History Social History Smoking status: Never smoker Alcohol intake: current Drinks per week: 1 Alcohol use details: socially Substance use: never Substance use type: does not use Living arrangements: with family Spiritual care concerns: No Anes - Eval Final PreProcedure Day of Procedure 11/07/22 14:37 Patient weight: overweight Heart: regular rate and rhythm Lungs: decreased breath sounds Airway: Mallampati scale class II Neurological: alert and oriented Last oral intake: >/= 8 hours ASA classification: III Emergent: no Anesthetic plan: proceed Anesthesia type and monitoring: general GIVS and standard monitoring Results Review: All pre-operative results and documents have been reviewed as part of the pre-operative evaluation. Informed Consent: The patient's anesthetic plan and its attendant risks and benefits were discussed with the patient/family/POA. Questions were solicited and answers provided to the satisfaction of the patient/family/POA.
--- NOTE | 2022-11-07 15:30 | PM.IMHP ---
H&P: HPI History of Present Illness Date/Time: 11/07/22 15:30 Chief Complaint: And numbness and weakness Narrative: is a 72-year-old gentleman with bilateral carpal tunnel syndrome who presents for right carpal tunnel release. He has not changed appreciably since we last saw him. He has numbness and tingling in a median distribution in his hand. He is not having any new bowel or bladder difficulty. He has some weakness and loss of dexterity in the hand. Review of Systems Review of Systems: Patient denies shortness of breath, cough, fever, chills, nausea, vomiting, weight loss, weight gain, chest pain, dysuria. He has hand numbness, tingling and weakness as above. His review of systems is otherwise negative on 12 systems except as noted elsewhere. [facility] Past Medical History Medical History Afib CAD (coronary artery disease) Depression Diabetes Hyperlipidemia Hypertension Surgical History Surgical History Hx of CABG Family History Family History Mother Diabetes mellitus Family history of arthritis Father Coronary artery disease Acute myocardial infarction Other Family history of malignant neoplasm Social History Social History Smoking status: Never smoker Alcohol intake: current Drinks per week: 1 Alcohol use details: socially Substance use: never Substance use type: does not use Living arrangements: with family Spiritual care concerns: No Meds Home Medications and Allergies Home Medications Medication Instructions Recorded Confirmed Type PreserVision Lutein 1 cap PO DAILY 01/24/22 11/04/22 History amlodipine 5 mg tablet 5 mg PO DAILY 01/24/22 11/04/22 History atorvastatin 40 mg tablet 40 mg PO HS 01/24/22 11/04/22 History clopidogrel 75 mg tablet 75 mg PO DAILY 01/24/22 11/04/22 History doxycycline hyclate 100 mg capsule 100 mg PO DAILY 01/24/22 11/04/22 History metformin 500 mg tablet,extended 500 mg PO BID 01/24/22 11/04/22 History release 24 hr metoprolol succinate 25 mg 25 mg PO DAILY 01/24/22 11/04/22 History tablet,extended release 24 hr sertraline 50 mg tablet 25 mg PO DAILY 01/24/22 11/04/22 History spironolactone 50 mg tablet 25 mg PO DAILY 01/24/22 11/04/22 History Allergies Allergy/AdvReac Type Severity Reaction Status Date / Time aspirin Allergy Severe Swelling Verified 11/04/22 03:54 of Lip/Tongue/Throat Vital Signs Vital Signs - 24 hr 11/07/22 12:45 Temperature 97.6 F Pulse Rate 54 L Respiratory Rate 16 Blood Pressure 120/65 Pulse Oximetry 98 Oxygen Delivery Room Air Exam Narrative: 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 There is some subjective numbness in a median distribution. Breathing is nonlabored Regular rate and rhythm Assessment and Plan Assessment and plan (1) Carpal tunnel syndrome of right wrist: Code(s): G56.01 - Carpal tunnel syndrome, right upper limb Status: Acute Plan Patient presents for a right carpal tunnel release. I described to him again that operation, its risks, potential benefits, the operative and postoperative course in detail and answered all his questions personally. He indicates understanding and elects to proceed with that operation.
--- NOTE | 2022-11-07 15:34 | WPDHPUPDATE1 ---
History and Physical Update Update Date/Time: 11/07/22 15:34 History and Physical has been reviewed, including an updated exam of the patient. There are NO changes in the patient's condition. Risks, benefits, and alternatives have been discussed and questions answered. Patient agrees to proceed with procedure.
[2022-11-07] MEDS: ceFAZolin 2 GM/D5W 50 ML 2 GM/50 ML BAG IVPB (15:42)
[2022-11-07] MEDS: LIDO 1%/EPINEPHRINE 1:100,000 50 ML VIAL 10 ML INFILTRATE (16:04)
[2022-11-07 16:19] VITALS: BP 109/54; PULSE 59; RESP 14; O2SAT 98
--- NOTE | 2022-11-07 16:22 | W.PM.PROC2 ---
Procedure Note - Detailed Date of Procedure 01/27/23 Pre-op Diagnosis right carpal tunnel syndrome Post-op Diagnosis Same Procedure Performed This was an aborted document Surgeon Parmjit Paulino MD Anesthesia General Description of Procedure this was an aborted document
[2022-11-07 16:50] VITALS: BP 109/54; PULSE 59; RESP 16; O2SAT 98
[2022-11-07 17:20] VITALS: BP 123/71; PULSE 51; RESP 16
--- NOTE | 2022-12-09 13:06 | W.PM.PROC2 ---
Procedure Note - Detailed Date of Procedure 12/09/22 Pre-op Diagnosis right carpal tunnel syndrome Post-op Diagnosis Same Procedure Performed Right carpal tunnel release Surgeon Parmjit Paulino MD Anesthesia MAC and Local Description of Procedure Mr. Mckeon was brought to the operating room in the supine position was sedated and his arm placed out over an arm board. There of operation the base of his palm was examined, marked for incision, prepped and draped routine sterile fashion. This serves injected with 0.5% lidocaine with [id number] epinephrine. Incision was made with a 15 blade scalpel. Subcu retractor was placed. Bovie cautery was used to coagulate fat and bleeding vessels. Separate 15 blade scalpel used to come through the soft tissues until carpal ligament was discovered and sized. Small Metzenbaum scissors then used to extend the cut in the ligament proximally and distally. Proximally this was performed until 4 [place] could be placed above the nerve to confirm lack of compression. Fifteen blade scalp was used to come through additional ligament in the palm until the palmar fat was discovered and the nerve was seen to be free of compression. The wound was then closed after copious irrigation with bacitracin irrigation. 3-0 nylon interrupted vertical mattress sutures were placed in the skin. This was dressed with Tegaderm, fluffy gauze, Kerlix and Nahun wrap. Patient was then allowed to wake up in the operating room and was taken to recovery room in stable condition. There were no immediate complications of this operation. All counts were reported correct at the case. Blood loss was 1 cc. The patient is neurologically at his baseline postoperatively. Estimated Blood Loss 1 IV Fluids 500 Complications None Condition Stable Disposition PACU [facility] Billing Surgery - Charge Forward: Surgery Billing
== END 2022-11-07 17:43 | disposition home or self-care (01) ==
PROVIDERS: PCP Internal Medicine; Visit Provider Neurological Surgery
PROC: (CPT 64721; principal; 2022-11-07 14:00)
DX: G56.01 Carpal tunnel syndrome, right upper limb (principal); I48.91 Unspecified atrial fibrillation; I25.10 Atherosclerotic heart disease of native coronary artery without angina pectoris; I10 Essential (primary) hypertension; E78.5 Hyperlipidemia, unspecified; E11.9 Type 2 diabetes mellitus without complications; F32.A Depression, unspecified; Z95.1 Presence of aortocoronary bypass graft; Z79.02 Long term (current) use of antithrombotics/antiplatelets; Z79.84 Long term (current) use of oral hypoglycemic drugs
CPT/HCPCS: 64721; 82948; J0690; J2704; J3010; J7120

== ENCOUNTER 2023-01-09 07:39 | Outpatient (CLI) | payer MEDICARE, SELFPAY ==
[2023-01-09 07:52] LABS: Appearance Urine Clear (Clear); Bilirubin Urine Negative (Negative); Blood Urine Trace-Intact (Negative); Color Urine Light Yellow (Yellow); Glucose Urine UA Negative (Negative); Ketones Urine Negative (Negative); Leukocyte Esterase Ur Negative (Negative); Nitrate Urine Negative (Negative); Protein Urine Negative (Negative); pH Urine 6.5 (5.0-8.0)
[2023-01-09 07:53] LABS: Basophils Absolute Auto 0.04 K/mm3 (0.00-0.10); Basophils Percent Auto 0.7 % (0.0-1.0); Eosinophils Absolute Auto 0.26 K/mm3 (0.02-0.50); Eosinophils Percent Auto 4.5 % (1.0-6.0); Hematocrit 45.4 % (37.0-46.0); Hemoglobin 15.4 g/dL (12.4-15.3); Immature Granulocyte Absolute 0.02 K/mm3 (0.00-0.00); Immature Granulocyte Percent A 0.3 % (0.0-0.0); Lymphocytes Absolute Auto 1.56 K/mm3 (1.10-4.50); Lymphocytes Percent Auto 26.9 % (18.0-42.0); Mean Corpuscular HGB Conc 33.9 g/dL (32.0-36.0); Mean Corpuscular Hemoglobin 31.3 pg (27.0-31.0); Mean Corpuscular Volume 92.3 fL (78.0-102.0); Mean Platelet Volume 8.7 fl (8.7-11.0); Monocytes Absolute Auto 0.58 K/mm3 (0.10-0.90); Neutrophils Absolute Auto 3.3 K/mm3 (1.7-7.2); Neutrophils Percent Auto 57.6 % (50.0-70.0); Platelet Count Result 201 K/mm3 (150-420); Red Blood Count 4.92 M/mm3 (4.70-6.10); Red Cell Distribution Width 13.1 % (11.6-14.4); White Blood Count 5.8 K/mm3 (4.8-10.8)
[2023-01-09 08:01] LABS: Add Urine Microscopic? YES; Bacteria Urine Rare /hpf; RBC Urine 0-2 /hpf (0-2); WBC Urine None seen /hpf (0-3)
[2023-01-09 08:02] LABS: Hemoglobin A1C 6.1 % (<5.7)
[2023-01-09 08:42] LABS: Alanine Aminotransferase 23 U/L (16-63); Albumin Level 3.7 g/dL (3.4-5.0); Alkaline Phosphatase 76 U/L (46-116); Anion Gap 9 mmol/L (8-16); Aspartate Amino Transferase 20 U/L (15-37); Bilirubin,Total 0.8 mg/dL (0.00-1.00); Blood Urea Nitrogen 15 mg/dL (7-18); Calcium 8.8 mg/dL (8.5-10.1); Carbon Dioxide 27 mmol/L (21-32); Chloride 105 mmol/L (98-108); Cholesterol 166 mg/dL (0-200); Creatine Kinase 171 U/L (39-308); Estimated Glomerular Filt Rate > 60; Free T3 2.91 pg/mL (2.18-3.98); Free T4 Free Thyroxine 0.95 ng/dL (0.76-1.46); Glucose 106 mg/dL (70-99); HDL Direct 53 mg/dL (40-60); LDL Cholesterol Calculated 96 mg/dL (<130); Osmolality Calculated 292 mOsm/kg (285-295); Potassium 4.5 mmol/L (3.5-5.1); Prostate Specific Antigen 2.5 ng/mL (< OR = 4.0); Sodium 141 mmol/L (136-145); Thyroid Stimulating Hormone 2.84 uIU/mL (0.36-3.74); Total Protein 6.5 g/dL (6.4-8.2); Triglycerides 85 mg/dL (0-150)
== END 2023-01-09 07:40 | disposition home or self-care (01) ==
LOC: CHSLAB 07:41
PROVIDERS: PCP Internal Medicine; Visit Provider Internal Medicine
DX: E11.9 Type 2 diabetes mellitus without complications (principal); E78.2 Mixed hyperlipidemia; I10 Essential (primary) hypertension; R13.12 Dysphagia, oropharyngeal phase; Z12.5 Encounter for screening for malignant neoplasm of prostate
CPT/HCPCS: 36415; 80053; 80061; 81001; 82550; 83036; 84153; 84439; 84443; 84481; 85025; G0103

== ENCOUNTER 2023-01-14 11:46 | Outpatient (CLI) | payer MEDICARE, SELFPAY ==
--- NOTE | ~2023-01-14 | XR_ITS ---
EXAMINATION: XR sacroiliac joints min 3V INDICATION: Low back pain TECHNIQUE: Three views of the sacroiliac joints are obtained. COMPARISON: None available FINDINGS: No abnormal erosion or sclerosis of the sacroiliac joints. There is no fracture. There is m oderate spondylosis of the visualized lumbar spine. Mild osteoarthritis is noted in the hips. There a re phleboliths of the pelvis. IMPRESSION: 1. No acute osseous abnormality. Reviewed, dictated and finalized at location L.
--- NOTE | ~2023-01-14 | XR_ITS ---
EXAMINATION: XR lumbar spine 2-3V DATE: 01/14/2023 12:07 INDICATION: Low back pain TECHNIQUE: Anteroposterior and lateral views of the lumbar spine, and cone-down lateral view of the l umbosacral junction were obtained. COMPARISON: 11/05/2021 FINDINGS: Bone alignment is normal. There is no fracture. There is moderate loss of intervertebral di sc space height at L1-2 and L2-3 and mild loss of intervertebral disc space height throughout the rem ainder of the lumbar spine. The vertebral body heights are maintained. Small degenerative osteophytes project from the anterior endplates of multiple vertebral bodies. There is multilevel moderate facet and uncovertebral joint osteoarthritis. IMPRESSION: 1. Moderate lumbar spondylosis without acute findings or significant interval change. Reviewed, dictated and finalized at location L. IMPRESSION: 1. Moderate lumbar spondylosis without acute findings or significant interval [place]
== END 2023-01-14 11:47 | disposition home or self-care (01) ==
LOC: CHSIMG 11:48
PROVIDERS: PCP Internal Medicine; Visit Provider Internal Medicine
DX: M43.06 Spondylolysis, lumbar region (principal)
CPT/HCPCS: 72100; 72202

== ENCOUNTER 2023-01-28 02:51 | Day surgery (SDC) | payer MEDICARE, SELFPAY ==
--- NOTE | 2023-01-20 11:57 | PC.NURSE ---
Report to the Outpatient Waiting Room, entrance under the green pavilion located off [facility], at time _0830 on date __01/28/23 . Planned Procedure Time: _1030 . Time changes happen often and if your time is changed the preop area will call you the afternoon before. - You and your visitor will be asked to self-screen and do not enter if you have any COVID symptoms. - A mask is optional within the hospital at this time. Patients may have clear liquids (water, carbonated beverages, clear teas, apple juice) until 3 hours prior to surgery with a maximum of 20 ounces. - No food from midnight until time of surgery - Infants may have breast milk until 4 hours before surgery, infant formula 6 hours prior to surgery. - Children will be allowed to drink immediately following surgery. If applicable, please bring a bottle or sippy cup to assist with drinking. Juice, water, soda, and popsicles are readily available. For infants on formula, please bring formula the day of surgery. Pacifiers are allowed. Take the following medications with a SIP of water the morning of surgery: __AMLODIPINE,METOPROLOL, SERTRALINE DO NOT STOP ANY OF YOUR OTHER PRESCRIPTION MEDICATIONS PRIOR TO SURGERY ?EXCEPT THE FOLLOWING Medications to discontinue per physician ALL VITAMINS AND SUPPLEMENTS 3 DAYS PRE OP/LAST DOSE 01/24/23. PLAVIX 7 DAYS PRE OP PER DR VELÁZQUEZ.LAST DOSE 01/20/23 Please no make-up, nail bahamian, hairspray, perfume, deodorant, or body powder the day of surgery. No jewelry (including any body piercings) or valuables the day of surgery, leave them at home. Please take a shower or bath the night before, or the morning of, surgery with an antibacterial soap. Wear comfortable, loose fitting clothing. Children are encouraged to wear pajamas. - Jewelry must be removed prior to entering the operating room. Rings and piercings that are not removed may be cut off. - The hospital will not accept responsibility for valuables. - Please leave all valuables, including medications, at home the day of surgery. If you are going home after surgery, a licensed operator and truck driver must drive you home. - NO public transportation without another adult if you receive anesthesia. - We recommend that an adult stay with you for 24 hours following discharge. - We also recommend that you do not drive, make important decision, drink alcoholic beverages, or take any drugs that were not prescribed by your health care provider for at least 24 hours after your discharge time. For Pediatric surgeries, we recommend two adults accompany the child home. Follow any additional instructions given to you from your surgeon. If you or anyone in your household have experienced Covid symptoms in the past week, please notify your surgeon or the nurse liaison at the phone number below for possible testing. Telephone instructions given to _PATIENT and asked if any additional questions and then verbalized understanding. Patient advised to call surgeon office or pre surgery nurse liaison [phone] if any additional questions.
[2023-01-20 12:06] VITALS: BMI 29.0
--- NOTE | 2023-01-27 14:25 | WPDANESEPPF ---
Anes - Initial Pre Proc Eval Procedure: Operation Date: 01/28/23 10:00 Proposed Procedures p Left Carpal Tunnel Release - Parmjit Paulino MD Date/Time: 01/27/23 14:25 Surgeon: Parmjit Paulino MD Pre Op Diagnosis: left carpal tunnel syndrome Patient Data Age: 72 Gender: M Height: 1.85 m Weight: 99.8 kg Allergies Allergy/AdvReac Type Severity Reaction Status Date / Time aspirin Allergy Severe Swelling Verified 01/28/23 08:45 of Lip/Tongue/Throat Home Medications Medication Instructions Recorded Confirmed Type PreserVision Lutein 1 cap PO DAILY 01/24/22 01/28/23 History amlodipine 5 mg tablet 5 mg PO DAILY 01/24/22 01/28/23 History clopidogrel 75 mg tablet 75 mg PO DAILY 01/24/22 01/28/23 History doxycycline hyclate 100 mg capsule 100 mg PO DAILY 01/24/22 01/28/23 History metformin 500 mg tablet,extended 500 mg PO BID 01/24/22 01/28/23 History release 24 hr metoprolol succinate 25 mg 25 mg PO DAILY 01/24/22 01/28/23 History tablet,extended release 24 hr sertraline 50 mg tablet 25 mg PO DAILY 01/24/22 01/28/23 History spironolactone 50 mg tablet 25 mg PO DAILY 01/24/22 01/28/23 History hydrocodone 5 mg-acetaminophen 325 1 - 2 tablet PO Q4H PRN pain #20 11/07/22 01/28/23 Rx mg tablet tabs atorvastatin 80 mg tablet 80 mg PO HS 01/20/23 01/28/23 History Patient hx anesthesia problems: none Family hx anesthesia problems: none Results Review: All pre-operative results and documents have been reviewed as part of the pre-operative evaluation. [facility] Past Medical History Medical History Afib CAD (coronary artery disease) Depression Diabetes Hyperlipidemia Hypertension Surgical History Surgical History Hx of CABG Family History Family History Mother Diabetes mellitus Family history of arthritis Father Coronary artery disease Acute myocardial infarction Other Family history of malignant neoplasm Social History Social History (Updated 11/25/22 @ 09:07 by Italo Thakkar MA) Smoking status: Never smoker Alcohol intake: current Drinks per week: 1 Alcohol use details: socially Substance use: never Substance use type: does not use Lack of Transportation: No Lack of Food: Never True Current Housing: I Have Housing Concerned About Future Housing: No Difficulty Paying Gas/Electric Bills: No Difficulty Paying for Meds: No Currently Unemployed: No Education: Master's Degree or Higher Difficulty w/ Childcare or Family Care: No Living arrangements: with family Spiritual care concerns: No Anes - Eval Final PreProcedure Day of Procedure 01/27/23 14:25 Patient weight: obese Heart: regular rate and rhythm Lungs: clear to auscultation Airway: Mallampati scale Neurological: alert and oriented Last oral intake: >/= 8 hours ASA classification: III Emergent: no Anesthetic plan: proceed Anesthesia type and monitoring: general GIVS and standard monitoring Results Review: All pre-operative results and documents have been reviewed as part of the pre-operative evaluation. Informed Consent: The patient's anesthetic plan and its attendant risks and benefits were discussed with the patient/family/POA. Questions were solicited and answers provided to the satisfaction of the patient/family/POA.
[2023-01-28 08:00] VITALS: BP 125/71; PULSE 58; RESP 16; TEMP 36.3; O2SAT 100; BMI 29.5
[2023-01-28 08:42] LABS: Glucose Point of Care 110 mg/dl (65-105)
[2023-01-28] MEDS: LACTATED RINGERS 1,000 ML 30 ML IV CONT (08:52)
--- NOTE | 2023-01-28 10:27 | PM.IMHP ---
H&P: HPI History of Present Illness Date/Time: 01/28/23 10:27 Chief Complaint: Left hand tingling, numbness and weakness Narrative: Giovanny is a 72-year-old gentleman with a left carpal tunnel syndrome causing mainly numbness and tingling in his hand and pain who presents now for left carpal tunnel release. He has not changed appreciably since we last saw him. He does not have specific muscle group weakness at this time. He does have numbness and tingling. Review of Systems Review of Systems: Patient denies shortness of breath, cough, fever, chills, nausea, vomiting, weight loss, weight gain, chest pain, dysuria. He has left hand numbness, tingling and pain as described above. He is otherwise negative on 12 systems except as noted elsewhere. [facility] Past Medical History Medical History Afib CAD (coronary artery disease) Depression Diabetes Hyperlipidemia Hypertension Surgical History Surgical History Hx of CABG Family History Family History Mother Diabetes mellitus Family history of arthritis Father Coronary artery disease Acute myocardial infarction Other Family history of malignant neoplasm Social History Social History (Updated 11/25/22 @ 09:07 by Italo Thakkar MA) Smoking status: Never smoker Alcohol intake: current Drinks per week: 1 Alcohol use details: socially Substance use: never Substance use type: does not use Lack of Transportation: No Lack of Food: Never True Current Housing: I Have Housing Concerned About Future Housing: No Difficulty Paying Gas/Electric Bills: No Difficulty Paying for Meds: No Currently Unemployed: No Education: Master's Degree or Higher Difficulty w/ Childcare or Family Care: No Living arrangements: with family Spiritual care concerns: No Meds Home Medications and Allergies Home Medications Medication Instructions Recorded Confirmed Type PreserVision Lutein 1 cap PO DAILY 01/24/22 01/28/23 History amlodipine 5 mg tablet 5 mg PO DAILY 01/24/22 01/28/23 History clopidogrel 75 mg tablet 75 mg PO DAILY 01/24/22 01/28/23 History doxycycline hyclate 100 mg capsule 100 mg PO DAILY 01/24/22 01/28/23 History metformin 500 mg tablet,extended 500 mg PO BID 01/24/22 01/28/23 History release 24 hr metoprolol succinate 25 mg 25 mg PO DAILY 01/24/22 01/28/23 History tablet,extended release 24 hr sertraline 50 mg tablet 25 mg PO DAILY 01/24/22 01/28/23 History spironolactone 50 mg tablet 25 mg PO DAILY 01/24/22 01/28/23 History hydrocodone 5 mg-acetaminophen 325 1 - 2 tablet PO Q4H PRN pain #20 11/07/22 01/28/23 Rx mg tablet tabs atorvastatin 80 mg tablet 80 mg PO HS 01/20/23 01/28/23 History Allergies Allergy/AdvReac Type Severity Reaction Status Date / Time aspirin Allergy Severe Swelling Verified 01/28/23 08:45 of Lip/Tongue/Throat Vital Signs Vital Signs - 24 hr 01/28/23 08:00 Temperature 97.3 F L Pulse Rate 58 L Respiratory Rate 16 Blood Pressure 125/71 Pulse Oximetry 100 Oxygen Delivery Room Air Exam Narrative: Strength is normal in the bilateral upper extremities to direct confrontation. There is slight numbness in a radial distribution the left hand compared to right. Breathing is nonlabored Regular rate and rhythm Assessment and Plan Assessment and plan (1) Carpal tunnel syndrome of left wrist: Code(s): G56.02 - Carpal tunnel syndrome, left upper limb Status: Acute Plan Jimmy is a 72-year-old gentleman with a left carpal tunnel syndrome who presents for left carpal tunnel release. I described to him that operation, its risks, potential benefits, the operative and postoperative course in detail again and answered all his questions personally. He indicates understanding
--- NOTE | 2023-01-28 10:28 | WPDHPUPDATE1 ---
History and Physical Update Update Date/Time: 01/28/23 10:28 History and Physical has been reviewed, including an updated exam of the patient. There are NO changes in the patient's condition. Risks, benefits, and alternatives have been discussed and questions answered. Patient agrees to proceed with procedure.
[2023-01-28] MEDS: ceFAZolin 2 GM/D5W 50 ML 2 GM/50 ML BAG IVPB (10:44)
[2023-01-28] MEDS: LIDO 1%/EPINEPHRINE 1:100,000 20 ML VIAL 10 ML INFILTRATE (11:10)
[2023-01-28 11:34] VITALS: BP 125/72; PULSE 58; RESP 12; O2SAT 96
--- NOTE | 2023-01-28 11:36 | W.PM.PROC2 ---
Procedure Note - Detailed Date of Procedure 01/28/23 Pre-op Diagnosis left carpal tunnel syndrome Post-op Diagnosis Same Procedure Performed Left carpal tunnel release Surgeon Parmjit Paulino MD Anesthesia General Description of Procedure The patient was brought to the operating room in the supine position, was sedated. Left arm was extended over arm board. The area of operation the base of palm was examined, marked for incision, prepped and draped in routine sterile fashion. Incision was marked 2 cm long from the wrist crease distally just medial to the palmar crease. This area was injected with 0.5% lidocaine with 1 to [id number] epinephrine. Intravenous antibiotics given prior to incision. incision was made with a 15 blade scalpel. A self-retaining retractors placed. Bleeding was stopped with bipolar cautery. A separate 15 blade scalpel used come to the soft tissues until the carpal ligament was discovered and incised exposing the median nerve below. The incision the carpal ligament was extended distally and proximally using the scalpel. In the palm the palmar fat was noted. Approximately small tenotomy scissors were used to continue to cut the ligament until a 4 [place] could be placed above the ligament to confirm microdecompression. The wound was copiously irrigated with bacitracin irrigation all bleeding stopped with bipolar cautery. The wound was then closed with 3-0 Nylon vertical mattress interrupted sutures and was dressed with I would a form, fluffy gauze, occur elects an Nahun wrap. The patient was allowed wake up in the operating room and was taken to the recovery room in stable condition. There were no immediate complications of this operation. All counts were reported correct and the case. Blood loss was minimal. Patient was neurologically at his baseline postoperatively. Estimated Blood Loss 1 IV Fluids 250 Complications None Condition Stable Disposition PACU [facility] Billing Surgery - Charge Forward: Surgery Billing
[2023-01-28 11:44] LABS: Glucose Point of Care 106 mg/dl (65-105)
[2023-01-28 12:00] VITALS: BP 130/70; PULSE 55
[2023-01-28 12:30] VITALS: BP 139/70; PULSE 55
== END 2023-01-28 12:37 | disposition home or self-care (01) ==
PROVIDERS: PCP Internal Medicine; Visit Provider Neurological Surgery
PROC: (CPT 64721; principal; 2023-01-28 10:00)
DX: G56.02 Carpal tunnel syndrome, left upper limb (principal); I48.91 Unspecified atrial fibrillation; I25.10 Atherosclerotic heart disease of native coronary artery without angina pectoris; E11.9 Type 2 diabetes mellitus without complications; I10 Essential (primary) hypertension; F32.A Depression, unspecified; E78.5 Hyperlipidemia, unspecified; Z79.02 Long term (current) use of antithrombotics/antiplatelets; Z79.84 Long term (current) use of oral hypoglycemic drugs; Z95.1 Presence of aortocoronary bypass graft; E66.9 Obesity, unspecified; Z68.29 Body mass index [BMI] 29.0-29.9, adult
CPT/HCPCS: 64721; 82948; J0690; J2704; J3010; J7120

== ENCOUNTER 2023-03-04 14:21 | Outpatient (CLI) | payer MEDICARE, SELFPAY ==
--- NOTE | ~2023-03-04 | XR_ITS ---
EXAMINATION: XR sacroiliac jt inj w imag BI DATE: 03/04/2023 15:23 INDICATION: Bilateral sacroiliac joint and low back pain. TECHNIQUE: A time-out was performed to verify the patient's name, date of , and procedure to b e performed. The procedure including the risks, benefits, and alternatives was discussed with the pat ient. Risks discussed included bleeding and infection. The patient understood the risks and agreed to proceed. The skin overlying the the left sacroiliac joint was prepped and draped in usual sterile f ashion. Anesthetic was administered with 1% lidocaine subcutaneously. A 22 G needle was advanced un tosha fluoroscopic guidance into the joint. Injection of 1 mL of Omnipaque 240 confirmed intra-articul ar position of the needle. Subsequently, injectate consisting of 5 mm of a 3:1:1 mixture of 1% lidoc blake: 40 mg/mL Kenalo mg/mL dexamethasone was instilled for a total dosage of 40 mg Kenalog and 4 mg dexamethasone. Washout of contrast was seen confirming intra-articular administration. The needle was removed and the entry site was cleaned and dressed. Attention was then turned to the left sacroiliac joint. The skin overlying the left sacroiliac joint was prepped and draped in usual sterile fashion. Anesthetic was administered with 1% lidocaine subcu taneously. A 22 G needle was advanced under fluoroscopic guidance into the joint. Injection of 1 mL of Omnipaque 240 confirmed intra-articular position of the needle. Subsequently, injectate consistin g of 5 mm of a 3:1:1 mixture of 1% lidocaine: 40 mg/mL Kenalo mg/mL dexamethasone was instilled f or a total dosage of 40 mg Kenalog and 4 mg dexamethasone. Washout of contrast was seen confirming in tra-articular administration. The needle was removed and the entry site was cleaned and dressed. The re were no immediate complications. Fluoroscopy exposure time for both injections was 0.5 minutes. e total number of images was 4. FINDINGS: Real-time fluoroscopy demonstrates the needle in the left and right sacroiliac joints. Maday ent's pain prior to procedure:8/10. Patient's pain following the procedure: /. IMPRESSION: 1. Successful bilateral sacroiliac joint injections of local anesthetic and steroid with decrease in the patient's presenting pain. Reviewed, dictated and finalized at location A. IMPRESSION: 1. Successful bilateral sacroiliac joint injections of local anesthetic and karlee roid with decrease in the patient's presenting pain.
== END 2023-03-04 14:22 | disposition home or self-care (01) ==
LOC: ANHIMG 14:26
PROVIDERS: PCP Internal Medicine; Visit Provider Internal Medicine
DX: M54.50 Low back pain, unspecified (principal); M53.3 Sacrococcygeal disorders, not elsewhere classified
CPT/HCPCS: 20610; 27096; 77002; G0260; J1100; J3301; Q9966

== ENCOUNTER 2023-07-08 08:18 | Outpatient (CLI) | payer MEDICARE, SELFPAY ==
[2023-07-08 08:37] LABS: Appearance Urine Clear (Clear); Basophils Absolute Auto 0.04 K/mm3 (0.00-0.10); Basophils Percent Auto 0.6 % (0.0-1.0); Bilirubin Urine Negative (Negative); Blood Urine Trace-Intact (Negative); Color Urine Yellow (Yellow); Eosinophils Absolute Auto 0.25 K/mm3 (0.02-0.50); Glucose Urine UA Negative (Negative); Hemoglobin 15.5 g/dL (12.4-15.3); Immature Granulocyte Absolute 0.01 K/mm3 (0.00-0.00); Immature Granulocyte Percent A 0.2 % (0.0-0.0); Ketones Urine Negative (Negative); Leukocyte Esterase Ur Negative (Negative); Lymphocytes Absolute Auto 1.44 K/mm3 (1.10-4.50); Lymphocytes Percent Auto 23.1 % (18.0-42.0); Mean Corpuscular HGB Conc 34.4 g/dL (32.0-36.0); Mean Corpuscular Hemoglobin 31.2 pg (27.0-31.0); Mean Corpuscular Volume 90.5 fL (78.0-102.0); Mean Platelet Volume 8.5 fl (8.7-11.0); Monocytes Absolute Auto 0.59 K/mm3 (0.10-0.90); Monocytes Percent Auto 9.5 % (2.0-11.0); Neutrophils Absolute Auto 3.9 K/mm3 (1.7-7.2); Neutrophils Percent Auto 62.6 % (50.0-70.0); Nitrate Urine Negative (Negative); Platelet Count Result 190 K/mm3 (150-420); Protein Urine Negative (Negative); Red Blood Count 4.97 M/mm3 (4.70-6.10); Red Cell Distribution Width 12.4 % (11.6-14.4); White Blood Count 6.2 K/mm3 (4.8-10.8)
[2023-07-08 08:42] LABS: Creatinine Urine 124.94 mg/dL (40-278); MALB Creatinine Ratio 10.4 mg/g (0-30); Microalbumin Urine Random < 13.0 mg/L
[2023-07-08 08:44] LABS: Hemoglobin A1C 5.9 % (<5.7)
[2023-07-08 09:09] LABS: Add Urine Microscopic? YES; Bacteria Urine Trace /hpf; Mucus Urine Moderate /lpf; RBC Urine 0-2 /hpf (0-2); WBC Urine None seen /hpf (0-3)
[2023-07-08 09:25] LABS: Alanine Aminotransferase 31 U/L (16-63); Albumin Level 3.7 g/dL (3.4-5.0); Alkaline Phosphatase 73 U/L (46-116); Anion Gap 10 mmol/L (8-16); Aspartate Amino Transferase 19 U/L (15-37); Bilirubin,Total 0.9 mg/dL (0.00-1.00); Blood Urea Nitrogen 11 mg/dL (7-18); Calcium 8.7 mg/dL (8.5-10.1); Carbon Dioxide 26 mmol/L (21-32); Chloride 105 mmol/L (98-108); Cholesterol 141 mg/dL (0-200); Creatine Kinase 136 U/L (39-308); Estimated Glomerular Filt Rate > 60; Free T4 Free Thyroxine 0.98 ng/dL (0.76-1.46); Glucose 110 mg/dL (70-99); HDL Direct 54 mg/dL (40-60); LDL Cholesterol Calculated 71 mg/dL (<130); NT Pro B Type Natriuretic Pept 199 pg/mL (0-450); Osmolality Calculated 292 mOsm/kg (285-295); Potassium 4.2 mmol/L (3.5-5.1); Sodium 141 mmol/L (136-145); Thyroid Stimulating Hormone 3.12 uIU/mL (0.36-3.74); Total Protein 6.2 g/dL (6.4-8.2); Triglycerides 82 mg/dL (0-150)
== END 2023-07-08 08:19 | disposition home or self-care (01) ==
LOC: CHSLAB 08:20
PROVIDERS: PCP Internal Medicine; Visit Provider Internal Medicine
DX: I25.10 Atherosclerotic heart disease of native coronary artery without angina pectoris (principal); I10 Essential (primary) hypertension; E78.2 Mixed hyperlipidemia; E11.9 Type 2 diabetes mellitus without complications; R13.12 Dysphagia, oropharyngeal phase; I50.9 Heart failure, unspecified
CPT/HCPCS: 36415; 80053; 80061; 81001; 82043; 82550; 83036; 83880; 84439; 84443; 84481; 85025

== ENCOUNTER 2024-01-13 09:22 | Outpatient (CLI) | payer MEDICARE, SELFPAY ==
[2024-01-13 09:41] LABS: Basophils Absolute Auto 0.04 K/mm3 (0.00-0.10); Basophils Percent Auto 0.7 % (0.0-1.0); Eosinophils Absolute Auto 0.37 K/mm3 (0.02-0.50); Eosinophils Percent Auto 6.2 % (1.0-6.0); Hematocrit 47.1 % (37.0-46.0); Hemoglobin 15.9 g/dL (12.4-15.3); Immature Granulocyte Absolute 0.03 K/mm3 (0.00-0.00); Immature Granulocyte Percent A 0.5 % (0.0-0.0); Lymphocytes Absolute Auto 1.47 K/mm3 (1.10-4.50); Lymphocytes Percent Auto 24.5 % (18.0-42.0); Mean Corpuscular HGB Conc 33.8 g/dL (32-36); Mean Corpuscular Hemoglobin 30.5 pg (27.0-31.0); Mean Corpuscular Volume 90.4 fL (78.0-102.0); Mean Platelet Volume 8.5 fl (8.7-11.0); Monocytes Absolute Auto 0.44 K/mm3 (0.10-0.90); Monocytes Percent Auto 7.3 % (2.0-11.0); Neutrophils Absolute Auto 3.65 K/mm3 (1.70-7.20); Neutrophils Percent Auto 60.8 % (50.0-70.0); Platelet Count Result 223 K/mm3 (150-420); Red Blood Count 5.21 M/mm3 (4.70-6.10); Red Cell Distribution Width 12.9 % (11.6-14.4)
[2024-01-13 09:43] LABS: Add Urine Microscopic? NO; Appearance Urine Clear (Clear); Bilirubin Urine Negative (Negative); Blood Urine Trace-intact (Negative); Color Urine Light Yellow (Yellow); Glucose Urine UA Negative (Negative); Ketones Urine Negative (Negative); Leukocyte Esterase Ur Negative LEU/UL (Negative); Nitrate Urine Negative (Negative); Protein Urine Negative (Negative); Urobilinogen Urine 0.2 mg/dL (0.2-1.0)
[2024-01-13 09:54] LABS: Hemoglobin A1C 5.9 % (<5.7)
[2024-01-13 10:47] LABS: Alanine Aminotransferase 35 U/L (16-63); Albumin Level 3.7 g/dL (3.4-5.0); Alkaline Phosphatase 83 U/L (46-116); Anion Gap 7 mmol/L (4-12); Aspartate Amino Transferase 22 U/L (15-37); Bilirubin,Total 0.6 mg/dL (0.00-1.00); Blood Urea Nitrogen 17 mg/dL (7-18); Calcium 9.1 mg/dL (8.5-10.1); Carbon Dioxide 28 mmol/L (21-32); Chloride 101 mmol/L (98-108); Cholesterol 154 mg/dL (0-200); Creatine Kinase 147 U/L (39-308); Estimated Glomerular Filt Rate > 60; Glucose 114 mg/dL (70-99); HDL Direct 53 mg/dL (40-60); LDL Cholesterol Calculated 84 mg/dL (<130); Osmolality Calculated 284 mOsm/kg (285-295); Potassium 4.2 mmol/L (3.5-5.1); Sodium 136 mmol/L (136-145); Total Protein 6.4 g/dL (6.4-8.2); Triglycerides 83 mg/dL (0-150)
== END 2024-01-13 09:23 | disposition home or self-care (01) ==
LOC: CHSLAB 09:25
PROVIDERS: PCP Internal Medicine; Visit Provider Internal Medicine
DX: Z12.5 Encounter for screening for malignant neoplasm of prostate (principal); N39.0 Urinary tract infection, site not specified; E78.2 Mixed hyperlipidemia; E11.9 Type 2 diabetes mellitus without complications
CPT/HCPCS: 36415; 80053; 80061; 81003; 82550; 83036; 84153; 85025; G0103

== ENCOUNTER 2024-01-26 14:21 | Outpatient (CLI) | payer MEDICARE, SELFPAY ==
--- NOTE | ~2024-01-26 | US_ITS ---
EXAMINATION: US thyroid DATE: 01/26/2024 14:53 INDICATION: Thyroid nodule TECHNIQUE: Multiple ultrasound images of the thyroid were obtained. COMPARISON: None. FINDINGS: The right thyroid lobe measures 3.6 x 2.0 x 1.7 cm. The left thyroid lobe measures 3.0 x 1.5 x 1.5 c m. Thyroid isthmus measures up to 3 mm in maximal thickness. There are few scattered subcentimeter a nechoic or very hypoechoic nodules in both thyroid lobes. Which appear to demonstrate peripheral echo genic foci suspicious for inspissated colloid. All measure <5 mm. There is normal echotexture, echoge nicity and vascular flow throughout the remainder of the thyroid gland. IMPRESSION: 1. A few scattered bilateral <4 mm thyroid nodules all of which remain below threshold for either bio psy or follow-up. Reviewed, dictated and finalized at location B. IMPRESSION: 1. A few scattered bilateral <4 mm thyroid nodules all of which remain below th reshold for either biopsy or follow-up.
== END 2024-01-26 14:22 | disposition home or self-care (01) ==
LOC: CHSIMG 14:22
PROVIDERS: PCP Internal Medicine; Visit Provider Internal Medicine
DX: E04.2 Nontoxic multinodular goiter (principal)
CPT/HCPCS: 76536

== ENCOUNTER 2024-04-26 10:03 | Outpatient (CLI) | payer MEDICARE, SELFPAY ==
--- NOTE | ~2024-04-26 | XR_ITS ---
XR shoulder LT min 2V Ordering provider: Johnnie Mcdonough MD History: . Left shoulder pain,LROM,NKI,CHRONIC . Comparison: None. FINDINGS: BONES: No acute fracture or dislocation. JOINT SPACES: The acromioclavicular joint shows osteoarthritic changes.. The glenohumeral joint is no rmal. SOFT TISSUES: Normal. IMPRESSION: No acute osseous abnormality left shoulder. Reviewed, dictated and finalized at location A. [employer]NER
== END 2024-04-26 10:04 | disposition home or self-care (01) ==
LOC: CHSIMG 10:04
PROVIDERS: PCP Internal Medicine; Visit Provider Internal Medicine
DX: M25.512 Pain in left shoulder (principal)
CPT/HCPCS: 73030

== ENCOUNTER 2024-05-24 09:26 | Outpatient (CLI) | payer MEDICARE, SELFPAY ==
--- NOTE | ~2024-05-24 | MR_ITS ---
MRI of the left shoulder Technique: Axial proton-density fat-sat images, coronal proton density fat-sat and T2 fat-sat images, and sagittal T1-weighted and T2 fat-sat images were acquired. Clinical History: Pain Findings: There is advanced AC joint degenerative change, prominent bony productive change of the acr omion and distal clavicle. Small fluid present in the joint space. Coracoclavicular, coracoacromial, and coracohumeral ligaments appear intact. There are complete, full-thickness tears involving the entirety of the supraspinatus and infraspinatu s tendons, which are retracted to the medial aspect of the humeral head. Subscapularis tendon appears to be intact with mild to moderate tendinosis. There is rupture of the proximal long head biceps ten don which is retracted to the bicipital groove. There are degenerative tearing of the superior labrum , probably extending to the anterosuperior and posterior superior portions. Inferior glenohumeral ligament is intact. Humeral head is high riding with small inferior humeral hea d osteophyte. There is high-grade chondromalacia at the superior aspect of the glenoid. There is diff use moderate to high-grade chondromalacia of the humeral head. Small amount of fluid passes from the glenohumeral joint through the rotator cuff defect into the subacromial/subdeltoid bursa. There is mo derate to advanced fatty atrophy of the supraspinatus and infraspinatus muscle bellies. Impression: Complete, full-thickness tears involving the entirety of the supraspinatus and infraspinatus tendons, as detailed above. Associated moderate to advanced fatty atrophy of these muscle bellies. Complete rupture of the proximal long head biceps tendon, which is retracted to the bicipital groove. Mild to moderate glenohumeral joint degenerative change of high riding humeral head. Severe AC joint degenerative change. Degenerative SLAP tear of the labrum. Reviewed, dictated and finalized at location . [employer] Impression: Complete, full-thickness tears involving the entirety of the supraspinatus and infraspinatus tendons, as detailed above. Associated moderate to advanced fatty atrophy of these muscle bellies. Complete rupture of the proximal long head biceps tendon, which is retracted to the bicipital groove. Mild to moderate glenohumeral joint degenerative change of high riding humeral head. Severe AC joint degenerative change. Degenerative SLAP tear of the labrum.
== END 2024-05-24 09:27 | disposition home or self-care (01) ==
PROVIDERS: PCP Internal Medicine; Visit Provider Internal Medicine
DX: M19.012 Primary osteoarthritis, left shoulder (principal); S43.432A Superior glenoid labrum lesion of left shoulder, initial encounter; X58.XXXA Exposure to other specified factors, initial encounter; M75.102 Unspecified rotator cuff tear or rupture of left shoulder, not specified as traumatic
CPT/HCPCS: 73221

== ENCOUNTER 2024-06-04 12:56 | Outpatient (RCR) | payer MEDICARE, SELFPAY ==
--- NOTE | 2024-06-04 14:24 | OPREHPOC ---
Outpatient Therapy Plan of Care This is a Multidisciplinary Plan of Care that may contain components documented by all disciplines (PT, OT, and ST.) PT Problem 1 PT Problem #1 Knowledge Deficit PT Goal 1 Goal / Goal Update 1. independent and compliant with HEP Target Visit 5 PT Problem 2 PT Problem #2 Impaired Strength PT Goal 1 Goal / Goal Update 1. 3/5 L shoulder flex 2. 3/5 L shoulder abd 3. 3/5 L shoulder ER Target Visit 10 PT Problem 3 PT Problem #3 Impaired Range of Motion PT Goal 1 Goal / Goal Update 1. 140 degrees or better active L shoulder flexion 2. 100 degrees or better active L shoulder abd Target Visit 10 PT Problem 4 PT Problem #4 Impaired Functional Mobility PT Goal 1 Goal / Goal Update 1. quick dash to display 20% or less functional deficits 2. patient to reach behind head to the shirt collar with the L UE without compensation 3. patient to lift L hand off back when reaching behind back to improve dressing independence Target Visit 10
--- NOTE | 2024-06-04 14:24 | PTOPEVAL1 ---
Assessment and note entered by JT File, PT Evaluation Information Assessment Status Evaluation ICD-10 Condition Codes (PT) Pain in left shoulder M25.512 Other ICD-10 Condition Codes ( M75.102, M12.812, M25.519, M19.90, R29.818 PT) Onset 05/27/24 Subjective Information patient reports he began having pain in the L shoulder back in 2020. he received therapy and injections back then, but about 3 months ago he began having trouble again with the L shoulder. he is unable to lift the arm away from his body. he is able to move the hand, wrist, and elbow, but is unable to lift the arm away from the side at the shoulder. he reports he is going to have a follow up with the ortho after PT is over to assess whether he needs to have surgery. Reported Pain Level Pain Score 0: Self Report Assessment PT Clinical Summary mrs. mccollum is a 73 yo man who presents to skilled PT services for evaluation and treatment of L shoulder weakness and functional deficits. he displays decreased active rom, decreased strength , and poor functional lifting/reach with the L arm . 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 continued skilled PT is indicated to improve patients strength/active rom, maintain his passive rom, and prevent further atrophy. however, patient will likely need reverse total shoulder replacement in the future. Plan of Care Interventions Electrical Stimulation,Hot Pack/Cold Pack,Manual Therapy,Neuro Re-education,Patient/Caregiver Education,Therapeutic Activities,Therapeutic Exercise PT Services Indicated Yes Treatment Frequency and 2x weekly for 10 visits Duration These treatments will address the objective and functional deficits as defined above. The patient will be advanced safely and appropriately in order for the patient to progress towards his/her prior level of function. Additional exercises will be introduced and as well as a comprehensive home exercise program upon discharge, if needed, ?to ensure carryover of functional gains achieved in the clinic. This treatment plan has been reviewed and agreement upon by the patient.
--- NOTE | 2024-07-07 09:55 | OPREHPOC ---
Outpatient Therapy Plan of Care This is a Multidisciplinary Plan of Care that may contain components documented by all disciplines (PT, OT, and ST.) PT Problem 1 PT Problem #1 Knowledge Deficit PT Goal 1 Goal / Goal Update 1. independent and compliant with HEP Target Visit 5 Progress Met PT Problem 2 PT Problem #2 Impaired Strength PT Goal 1 Goal / Goal Update 1. 3/5 L shoulder flex 2. 3/5 L shoulder abd 3. 3/5 L shoulder ER Target Visit 10 Progress Not Met PT Problem 3 PT Problem #3 Impaired Range of Motion PT Goal 1 Goal / Goal Update 1. 140 degrees or better active L shoulder flexion 2. 100 degrees or better active L shoulder abd Target Visit 10 Progress Not Met PT Problem 4 PT Problem #4 Impaired Functional Mobility PT Goal 1 Goal / Goal Update 1. quick dash to display 20% or less functional deficits 2. patient to reach behind head to the shirt collar with the L UE without compensation 3. patient to lift L hand off back when reaching behind back to improve dressing independence Target Visit 10 Progress Not Met
--- NOTE | 2024-07-07 09:55 | PTOPDC ---
Assessment and note entered by JT File, PT Evaluation Information Assessment Status Discharge ICD-10 Condition Codes (PT) Pain in left shoulder M25.512 Other ICD-10 Condition Codes ( M75.102, M12.812, M25.519, M19.90, R29.818 PT) Onset 05/27/24 Subjective Information patient reports he is still unable to lift the L arm up away from his side. he reports he has been doing exercises and using e-stim at home, and reports he feels it is a bit better, but still weak and unable to lift to a functional level. he reports he has a nerve conduction test on 08/04/24 . he reports he uses the assist of his to practice active assisted L shoulder flexion in supine and standing. patient reports he and his are diligent about exercising the L shoulder 2 times a day. Reported Pain Level Pain Score 0: Self Report Assessment PT Clinical Summary mr. mccollum presents to skilled PT for his 10th skilled PT visit. he display only slight increased active L shoulder flexion and abduction, but nothing significant in objective measurement or functional ability. he does display a positive L sulcus sign today. patient is diligent at home about doing his HEP with the assistance from his . at this time, he has met only his HEP goal. he will DC skilled PT as we await the results of his nerve conduction test in july. he will continue with his HEP with his 's assistance at home. he was educated to follow up with PT regarding results of the nerve conduction test, or with any significant changes in function between now and then. Plan of Care PT Services Indicated Yes
== END 2024-07-07 11:11 | disposition home or self-care (01) ==
LOC: CHSPT 12:56
PROVIDERS: PCP Internal Medicine; Visit Provider Physician Assistant
DX: M25.512 Pain in left shoulder (principal); M75.102 Unspecified rotator cuff tear or rupture of left shoulder, not specified as traumatic; M12.812 Other specific arthropathies, not elsewhere classified, left shoulder; M25.519 Pain in unspecified shoulder; R29.818 Other symptoms and signs involving the nervous system
CPT/HCPCS: 97110; 97112; 97140; 97161

== ENCOUNTER 2024-07-15 08:04 | Outpatient (CLI) | payer MEDICARE, SELFPAY ==
--- OUTSIDE RECORDS SUMMARY | 2024-07-15 08:13 | XMS_ITS | Clinical Summary ---
Author Organization [facility] Medical Office Building [address] [place] [phone] Care Team Providers Care Marketing Business Analyst Name Role Phone Johnnie Mcdonough MD Primary Care Provider Allergies Active Allergy Reactions Criticality Noted Date Comments Aspirin Hives Medium 06/04/2017 Nitroglycerin Other (See comments) Low 11/05/2022 Vasovagal response Other Hives Medium 12/10/2019 Fresh strawberries Medications sertraline (ZOLOFT) 50 mg tablet Take 1 tablet (50 mg total) by mouth daily. 30 tablet 3 8 Active DOXYCYCLINE HYCLATE 100 mg capsule 0 Active amLODIPine (NORVASC) 5 mg tablet 1 Active clopidogreL (PLAVIX) 75 mg tablet 1 Active metoprolol XL (TOPROL-XL) 25 mg extended release tablet 1 Active spironolactone (ALDACTONE) 25 mg tablet Active metFORMIN XR (GLUCOPHAGE XR) 500 mg 24 hr tablet Take 1 tablet (500 mg total) by mouth 2 (two) times a day 1 Active atorvastatin (LIPITOR) 80 mg tablet 4 Active vit C/E/Zn/coppr/l utein/zeaxan (PRESERVISION AREDS-2 ORAL) Take 1 capsule by mouth daily Active atorvastatin (LIPITOR) 40 mg tablet 1 06/18/19 25 Discontinued Active Problems Problem Noted Date Diagnosed Date Axillary nerve palsy 06/18/2024 Left rotator cuff tear arthropathy 06/18/2024 Arthritis 01/01/2021 Cancer 01/01/2021 Diabetes 01/01/2021 Hyperlipidemia 01/01/2021 Paroxysmal atrial fibrillation 02/18/2020 S/P CABG (coronary artery bypass graft) 02/18/20 20 Coronary artery disease 01/18/2020 Aspirin allergy 01/13/2020 Essential hypertension 12/25/2019 Oropharyngeal dysphagia 06/04/2017 Assessment & Plan (06/04/2017 10:46 AM CRIBBING SETTER): With symptoms of constant need to clear her throat and sensation of something being stuck in throat 1. CBC, CMP, TSH (unless done as part of his lab work done with his PCP in 04/2017) 2. Modified barium swallow 3. EGD 4. Additional considerations for evaluation, pending the above results, include motility/pH study and/or consultation with Dr. Shultz. 5. We will request results of evaluation with Dr. Teixeira, including results of laryngoscopy. 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 06/18/2024 9:45 AM CRIBBING SETTER Office Visit [facility] [address] [place] [phone] Froy Bronson MD Left rotator cuff tear arthropathy (Primary Dx); Axillary nerve palsy 06/18/2024 Orders Only [facility] [address] [place] [phone] Froy Bronson MD Left rotator cuff tear arthropathy (Primary Dx); Axillary nerve palsy; 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 06/18/2024 Orders Only [facility] [address] [place] [phone] Froy Bronson MD Axillary nerve palsy (Primary Dx); 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 05/27/2024 9:30 AM CRIBBING SETTER Office Visit [facility] [address] [place] [phone] Ila Christy PA 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 (Primary Dx); Left rotator cuff tear arthropathy; Acute shoulder pain, unspecified laterality 05/27/2024 9:20 AM CRIBBING SETTER Ancillary Procedure [facility] Imaging at [address] [phone] Acute shoulder pain, unspecified laterality 05/24/2024 Ancillary Procedure [facility] Outside Films from Last 3 Months Surgical History Surgery Date Site/Laterality Comments FLUORO GUIDED INJECTION SHOULDER LEFT 07/15/2019 Lef t FLUORO GUIDED INJECTION SHOULDER LEFT 01/18/2021 Lef t Medical History Medical History Date Comments Hypertension Lymphosarcoma (HCC) trated with surgery only 1977 Diabetes (HCC) 01/01/2021 Family History Medical History Relation Name Comments Celiac disease Neg Hx Colon cancer Neg Hx Colon polyps Neg Hx Crohn's disease Neg Hx Ulcerative colitis Neg Hx Social History Tobacco Use Types Packs/Day Years Used Date Smoking Tobacco: Never Smokeless Tobacco: Never Tobacco Cessation:Counseling Given: Not Answered Alcohol Use Standard Drinks/Week Comments Yes 0 (1 standard drink = 0.6 oz pur e alcohol) 3 -4 beers per week Sex and Gender Information Value Date Recorded Sex Assigned at Not on file Legal Sex Male 11:16 AM CRIBBING SETTER Gender Identity Male 12/27/2020 9:51 AM CDT Sexual Orientation Straight 12/27/2020 9: 51 AM CDT Obstetrics History Last Filed Vital Signs Vital Sign Reading Time Taken Comments Blood Pressure 154/79 06/18/2024 9:48 AM CRIBBING SETTER Pulse 83 06/18/2024 9:48 AM CRIBBING SETTER Temperature - - Respiratory Rate 16 01/18/2021 2:03 PM CDT Oxygen Saturation 97% 09/04/2017 9:32 AM CDT Inhaled Oxygen Concentration - - Weight 104.8 kg (231 lb 1.6 oz) 06/18/2024 9:48 AM CRIBBING SETTER Height 182.9 cm (6') 06/18/2024 9:48 AM CRIBBING SETTER Body Mass Index 31.34 06/18/2024 9:48 AM CRIBBING SETTER Plan of Treatment Health Maintenance Due Date Last Done Comments Albumin Creatinine Ratio, Urine 1948 Depression Screening 1948 Fall Risk Assessment 1950 Hemoglobin A1C 1950 Hepatitis C Screening 1950 eGFR 1950 Dilated Eye Exam 1948 Foot Exam 1948 DTaP/Tdap/Td Vaccine (1 - Tdap) 1959 Hepatitis B Screening 1966 Well Visit 65+ 2013 Lipid Panel 05/17/2022 05/17/2021, 11/02/2020 Influenza Vaccine (#1) 2024 Pneumococcal vaccine 65+ Completed 10/23/2015, 12/2014 Zoster Vaccine Completed 01/29/2019, 06/12, 10/21/2012 Procedures Procedure Name Priority Date/Time Associated Diagnosis Comments XR SHOULDER LEFT 2 OR MORE VIEWS Schedule Routine, Read Routine (OP Routine) 05/27/2024 9:24 AM CRIBBING SETTER Acute shoulder pain, unspecified laterality MRI TRANSFER OF OUTSIDE FILMS Routine 05/24/2024 12:00 AM CRIBBING SETTER from Last 3 Months Results * XR Shoulder Left 2 or More Views (05/27/2024 9:24 AM CRIBBING SETTER) Anatomical Region Laterality Modality Upper Extremities, Shoulder Left Digi almas Radiography Narrative 05/27/2024 2:49 PM CRIBBING SETTER X-rays of the left shoulder are viewed and interpreted in clinic today. These demonstrate no fracture subluxation or osseous lesions. Rotator cuff arthropathy changes noted with superior elevation of the humeral head, osteophyte formation, and subchondral sclerosis. Degenerative changes appreciated within the acromioclavicular joint with enlargement of the distal clavicle and subacromial spur. us Ila HOPSON IMG XR PROCEDURES Final Result * MRI Outside Reference (05/24/2024 12:00 AM CRIBBING SETTER) Narrative [facility] - 05/27/2024 9:28 AM CRIBBING SETTER This order has been auto-finalized and does not contain a result. us Not In File Miscellaneous IMG MRI PROCEDURES Fin al Result Performing Organization Address City/State/[facility] Co de Phone Number [facility] from Last 3 Months Insurance MEDICARE SOLUTIONS [facility] MEDICARE [id number] [facility] MEDICARE Care Teams Marketing Business Analyst Relationship Specialty Start Date End Date Johnnie Mcdonough MD [address] [place] [address] PCP - General Internal Medicine 04/29/17
--- OUTSIDE RECORDS SUMMARY | 2024-07-15 08:13 | XMS_ITS ---
Author Organization [facility] Medical Office Building [address] [place] [phone] Care Team Providers Care Special Tax Auditor Name Role Phone Johnnie Mcdonough MD Primary Care Provider Active Problems Problem Noted Date Diagnosed Date Axillary nerve palsy 06/18/2024 Left rotator cuff tear arthropathy 06/18/2024 Arthritis 01/01/2021 Cancer 01/01/2021 Diabetes 01/01/2021 Hyperlipidemia 01/01/2021 Paroxysmal atrial fibrillation 02/18/2020 S/P CABG (coronary artery bypass graft) 02/18/20 Coronary artery disease 01/18/2020 Aspirin allergy 01/13/2020 Essential hypertension 12/25/2019 Oropharyngeal dysphagia 06/04/2017 Assessment & Plan (06/04/2017 10:46 AM HYGIENE ASSISTANT): With symptoms of constant need to clear [...] with Dr. Teixeira, including results of laryngoscopy. Current Treatment and Therapy Plans No current plan information found. Past Treatment and Therapy Plans No past plan information found. Lifetime Dose Tracking * Chemical Lifetime Dose Automatic Entry Manual Entr y Fluoro Time 0.668 minutes 0.668 minutes 0 minutes Air kerma at the reference point (Ka,r) 2.73 mGy 2 .73 mGy 0 mGy
--- OUTSIDE RECORDS SUMMARY | 2024-07-15 08:13 | XMS_ITS | Clinical Summary ---
Author Organization [facility] Address [address] [place] [address] Care Team Providers Care Grant Administrator Name Role Phone Johnnie Mcdonough MD Primary Care Provider [phone] Allergies Active Allergy Reactions Criticality Noted Date Comments Aspirin Hives Medium 10/20/2015 Nitroglycerin Other (see comment) 11/05/2022 Vasovagal response Strawberries Hives 12/10/2019 Fresh strawberries Medications doxycycline hyclate 100 MG capsule Take 1 capsule (100 mg total) by mouth daily. 06/01/2019 Active Multiple Vitamins-Minera ls (PRESERVISION AREDS 2) Cap Take 1 tablet by mouth daily. 06/15/2013 Active sertraline 50 MG tablet Take 1 tablet (50 mg total) by mouth daily. 11/07/2017 Active metoprolol succinate ER 25 MG 24 hr tablet Take 1 tablet (25 mg total) by mouth daily. 12/30/2020 Active metFORMIN ER 500 MG 24 hr tablet Take 1 tablet (500 mg total) by mouth 2 (two) times daily. 12/30/2020 Active clopidogrel (PLAVIX) 75 MG tablet TAKE ONE TABLET BY MOUTH EVERY DAY. 90 tablet 2 11/26/2021 Active amLODIPine (NORVASC) 5 MG tablet TAKE 1 TABLET BY MOUTH DAILY. 90 tablet 2 01/16/2022 Active spironolactone (ALDACTONE) 50 MG tablet Take 0.5 tablets (25 mg total) by mouth daily. 11/02/2022 Active atorvastatin (LIPITOR) 80 MG tablet Take 1 tablet (80 mg total) by mouth daily. 07/24/2023 Active Active Problems Problem Noted Date Diagnosed Date S/P CABG (coronary artery bypass graft) 02/18/20 20 Paroxysmal atrial fibrillation ([facility]) 02/18/2020 Coronary artery disease 01/18/2020 Aspirin allergy 01/13/2020 Essential hypertension 12/25/2019 Hyperlipidemia Diabetes ([facility]) Cancer ([facility]) Arthritis Encounters Date Type Department Care Team Description 07/02/2024 Telephone [facility] [address] [place] [address] Kurtis Rodríguez MD Reschedule from Last 3 Months Family History Medical History Relation Comments Heart Attack Father Heart Disease Father Open Heart Father Cancer Mother Diabetes Mother Relation Status Comments Father Mother Social History Tobacco Use Types Packs/Day Years Used Date Smoking Tobacco: Never Smokeless Tobacco: Never Tobacco Cessation:Counseling Given: No Alcohol Use Standard Drinks/Week Comments Yes 1.7 (1 standard drink = 0.6 oz p ure alcohol) monthly Sex and Gender Information Value Date Recorded Sex Assigned at Not on file Legal Sex Male 10:25 PM CDT Gender Identity Male 07/30/2021 6:40 AM CDT Sexual Orientation Straight 07/30/2021 6: 40 AM CDT Occupation Industry Job Start Date Job End Date Retired Not on file Not on file Not on file Last Filed Vital Signs Vital Sign Reading Time Taken Comments Blood Pressure 134/84 08/21/2023 9:30 AM CDT Pulse 61 08/21/2023 9:30 AM CDT Temperature 37 C (98.6 F) 01/23/2020 5:16 AM CDT Respiratory Rate 16 08/21/2023 9:30 AM CDT Oxygen Saturation 96% 08/21/2023 9:30 AM CDT Inhaled Oxygen Concentration - - Weight 104 kg (229 lb 3.2 oz) 08/21/2023 9:30 AM CDT Height 185.4 cm (6' 1 ) 08/21/2023 9:30 AM CDT Body Mass Index 30.24 08/21/2023 9:30 AM CDT Plan of Treatment Upcoming Encounters Date Type Department Care Team (Late st Contact Info) Description 09/28/2024 2:00 PM CDT Office Visit [facility] [place] [place] [address] Donald Pantoja MD [address] [facility] [address] [place] [address] Health Maintenance Due Date Last Done Comments Kidney Health Evaluation 1948 Hepatitis C 1966 Annual Medicare Wellness Visit 2013 Hemoglobin A1C 11/14/2021 05/17/2021, 10/11, 07/20/2020, Additional history exists Diabetes: Retinopathy Eye Exam 03/24/2022 03/24/2020 ASCVD LDL 05/17/2022 05/17/2021, 10/11, 01/14/2020 Lipid Panel 05/17/2022 05/17/2021, 10/11, 01/14/2020 RSV Immunization or 60+ Years (1 - 1-dose 75+ series) 2023 COVID-19 Vaccine ( season) 2024 02/23/2021, 06/05/2020, 05/09/2020 Influenza Adult (#1) 2024 02/01/2020 DTaP, Tdap and Td Vaccines (2 - Td or Tdap) 06/25/2029 06/25/2019 Pneumococcal Vaccine: 65+ Years Completed 10/23/2015, 05/19/2014 Zoster Vaccines Completed 01/29/2019, 06/12, 10/21/2012 Meningococcal B Vaccine Aged Out No l onger eligible based on patient's age to complete this topic Meningococcal Vaccine Aged Out No marika archie eligible based on patient's age to complete this topic RSV Immunizations Under 20 Months Aged Out No longer eligible based on patient's age to complete this topic Procedures Procedure Name Priority Date/Time Associated Diagnosis Comments LIPID PANEL Routine 05/17/2021 HEMOGLOBIN, GLYCOSYLATED Routine 05/17/2021 DILATED EYE EXAM (SCAN) Routine 03/24/2020 from Last 3 Months or Most Recently Relevant to Health Maintenance Results * HEMOGLOBIN, GLYCOSYLATED (05/17/2021) HGB A1C 6.0 <5.7 % 05/17/2021 Johnnie Mcdonough MD LABORATORY Final Result * LIPID PANEL (05/17/2021) CHOLESTEROL 175 0 - 200 HDL 55 40 - 60 TRIGLYCERIDES 73 0 - 150 LDL (CALCULATED) 105 <130 05/17/2021 Johnnie Mcdonough MD LABORATORY Final Result * DIABETIC RETINOPATHY EXAM (03/24/2020) us Documents Scanned SCANNING Final Result [facility] from Last 3 Months or Most Recently Relevant to Health Maintenance Insurance [employer] Advance Directives * Full Code (Latest Code Status on File) Date Activated Date Inactivated Comments 01/18/2020 5:21 PM 01/23/2020 2:02 PM * Full Code Date Activated Date Inactivated Comments 01/13/2020 4:46 PM 01/13/2020 7:49 PM Care Teams Grant Administrator Relationship Specialty Start Date End Date Johnnie Mcdonough MD [address] [place] [phone] PCP - General INTERNAL MEDICINE 12/10/19
--- OUTSIDE RECORDS SUMMARY | 2024-07-15 08:13 | XMS_ITS | Encounter Summary ---
Author Organization [facility] Healthcare Address [address] [place] [address] Care Team Providers Care Athletics Teacher Name Role Phone Johnnie Mcdonough MD Primary Care Provider Encounter Details Date Type Department Care Team (Late st Contact Info) Description 01/17/2021 Telephone [facility] [address] [place], [place] [id number] Mateus Bolden, RT Social History Tobacco Use Types Packs/Day Years Used Date Smoking Tobacco: Never Smokeless Tobacco: Never Alcohol Use Standard Drinks/Week Comments Yes 0 (1 standard drink = 0.6 oz pur e alcohol) 3 -4 beers per week Sex and Gender Information Value Date Recorded Sex Assigned at Not on file Legal Sex Male 11:16 AM ELECTRIC MOTOR REPAIRMAN Gender Identity Male 12/27/2020 9:51 AM CDT Sexual Orientation Straight 12/27/2020 9: 51 AM CDT documented as of this encounter Plan of Treatment Not on file documented as of this encounter Visit Diagnoses Not on filedocumented in this encounter Care Teams Athletics Teacher Relationship Specialty Start Date End Date Johnnie Mcdonough MD [address] [place] [address] PCP - General Internal Medicine 04/29/17 documented as of this encounter
--- OUTSIDE RECORDS SUMMARY | 2024-07-15 08:13 | XMS_ITS | Referral Summary ---
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 06/18/2024 Orders Only [facility] Orthopedic and Sports Medicine [address] [place] [phone] Froy Bronson MD Left rotator cuff tear arthropathy (Primary Dx); Axillary nerve palsy; 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 06/18/2024 Orders Only [facility] Orthopedic and Sports Medicine [address] [place] [phone] Froy Bronson MD Axillary nerve palsy (Primary Dx); 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 06/18/2024 9:45 AM PICKER FEEDER Office Visit [facility] Orthopedic and Sports Medicine [address] [place] [phone] Froy Bronson MD Left rotator cuff tear arthropathy (Primary Dx); Axillary nerve palsy 05/27/2024 9:20 AM PICKER FEEDER Ancillary Procedure [facility] Imaging at [address] [phone] Acute shoulder pain, unspecified laterality 05/27/2024 9:30 AM PICKER FEEDER Office Visit [facility] Orthopedic [facility] Sports Medicine [address] [place] [phone] Ila Christy PA 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 Teixeira, including results of laryngoscopy. Social History Tobacco Use Types Packs/Day Years Used Date Smoking Tobacco: Never Smokeless Tobacco: Never Tobacco Cessation:Counseling Given: Not Answered Alcohol Use Standard Drinks/Week Comments Yes 0 (1 standard drink = 0.6 oz pur e alcohol) 3 -4 beers per week Sex and Gender Information Value Date Recorded Sex Assigned at Not on file Legal Sex Male 11:16 AM PICKER FEEDER Gender Identity Male 12/27/2020 9:51 AM CDT Sexual Orientation Straight 12/27/2020 9: 51 AM CDT Last Filed Vital Signs Vital Sign Reading Time Taken Comments Blood Pressure 154/79 06/18/2024 9:48 AM PICKER FEEDER Pulse 83 06/18/2024 9:48 AM PICKER FEEDER Temperature - - Respiratory Rate 16 01/18/2021 2:03 PM CDT Oxygen Saturation 97% 09/04/2017 9:32 AM CDT Inhaled Oxygen Concentration - - Weight 104.8 kg (231 lb 1.6 oz) 06/18/2024 9:48 AM PICKER FEEDER Height 182.9 cm (6') 06/18/2024 9:48 AM PICKER FEEDER Body Mass Index 31.34 06/18/2024 9:48 AM PICKER FEEDER Plan of Treatment Not on file Procedures Procedure Name Priority Date/Time Associated Diagnosis Comments XR SHOULDER LEFT 2 OR MORE VIEWS Schedule Routine, Read Routine (OP Routine) 05/27/2024 9:24 AM PICKER FEEDER Acute shoulder pain, unspecified laterality MRI TRANSFER OF OUTSIDE FILMS Routine 05/24/2024 12:00 AM PICKER FEEDER from Last 3 Months Results * XR Shoulder Left 2 or More Views (05/27/2024 9:24 AM PICKER FEEDER) Anatomical Region Laterality Modality Upper Extremities, Shoulder Left Digi almas Radiography Narrative 05/27/2024 2:49 PM PICKER FEEDER X-rays of the left shoulder are viewed [...] * MRI Outside Reference (05/24/2024 12:00 AM PICKER FEEDER) Narrative [facility] - 05/27/2024 9:28 AM PICKER FEEDER This order has been auto-finalized and does not contain a result. us Not In File Miscellaneous IMG MRI PROCEDURES Fin al Result Performing Organization Address City/State/[facility] Co de Phone Number [facility] from Last 3 Months Insurance MEDICARE SOLUTIONS [facility] MEDIC[facility] Address: [facility] [address] [place] [address] [facility] MEDICARE [id number] [employer] MEDICARE Care Teams Medical Assistant Ob Gyn Relationship Specialty Start Date End Date Johnnie Mcdonough MD [address] [place], [place] [id number] PCP - General Internal Medicine 04/29/17
--- OUTSIDE RECORDS SUMMARY | 2024-07-15 08:13 | XMS_ITS | CONTINUITY OF CARE DOCUMENT ---
Author Name ortiz alcantar Address Unknown Organization [facility] Address [address] [facility] [address] [place] [address] Phone [phone] Care Team Providers Care Grease Buffer Name Role Phone Lavon HANEY, Devon Unavailable [phone] IMER DE LA ROSA MD Unavailable [phone] INSURANCE PROVIDERS Payer name Policy type / Coverage type [place] red democrat ID [employer] OPEN ACCESS Other [id number] [place] Medicare [id number]
--- OUTSIDE RECORDS SUMMARY | 2024-07-15 08:13 | XMS_ITS | Encounter Summary ---
Author Organization [facility] Address [address] [place] [address] Care Team Providers Care Director Strategic Account Management Name Role Phone Johnnie Mcdonough MD Primary Care Provider Meño Vargas MD Unavailable Unavailabl e Encounter Details Date Type Department Care Team (Late st Contact Info) Description 07/30/2021 [facility] [address] [place] [phone] Meño Vargas MD Social History Tobacco Use Types Packs/Day Years Used Date Smoking Tobacco: Never Smokeless Tobacco: Never Alcohol Use Standard Drinks/Week Comments Yes 1.7 [...] file Not on file Not on file COVID-19 Exposure Response Date Recorded In the last 10 days, have yo u been in contact with someone who was confirmed or suspected to have Coronavirus/COVID-19? No / Unsure 07/31/2021 12:59 PM CDT documented as of this encounter Functional Status * RETIRED Are you deaf or do you have serious difficulty hearing Answer Date of Assessment Author Status No 01/19/2020 2:15 PM CDT Activ e * RETIRED Are you blind or do you have serious difficulty seeing, even when wearing glasses? Answer Date of Assessment Author Status No 01/19/2020 2:15 PM CDT Activ e * Do you have serious difficulty walking or climbing stairs? Answer Date of Assessment Author Status No 01/19/2020 2:15 PM CDT Alma Hager RN Active * Do you have difficulty dressing or bathing? Answer Date of Assessment Author Status No 01/19/2020 2:15 PM CDT Alma Hager RN Active * Because of a physical, mental, or emotional condition, do you have difficulty doing errands alone such as visiting a doctor's office or shopping? Answer Date of Assessment Author Status No 01/19/2020 2:15 PM CDT Alma Hager RN Active documented as of this encounter Mental Status * Because of a physical, mental, or emotional condition, do you have serious difficulty concentrating, remembering, or making decisions? Answer Entry Date Author Status No 01/19/2020 2:15 PM CDT Alma Hager RN Active documented in this encounter Plan of Treatment Upcoming Encounters Date Type Department Care Team ([facility] st Contact Info) Description 09/28/2024 2:00 PM CDT Office [facility] [place] [address] Donald Pantoja MD [address] [place] [address] documented as of this encounter Procedures Procedure Name Priority Date/Time Associated Diagnosis Comments CMP (ABSTRACTED LAB) Routine 05/17/2021 HEMOGLOBIN, GLYCOSYLATED Routine 05/17/2021 LIPID PANEL Routine 05/17/2021 CK (CPK) Routine 05/17/2021 documented in this encounter Results * HEMOGLOBIN, GLYCOSYLATED (05/17/2021) HGB A1C 6.0 <5.7 % 05/17/[address] [facility] Johnnie Mcdonough MD LABORATORY Final Result * LIPID PANEL (05/17/2021) CHOLESTEROL 175 0 - 200 HDL 55 40 - 60 TRIGLYCERIDES 73 0 - 150 LDL (CALCULATED) 105 <130 05/17/[address] [facility] Johnnie Mcdonough MD LABORATORY Final Result * CK (CPK) (05/17/2021) Pathologist [facility] CPK 221 39 - 308 05/17/[address] [facility] Johnnie Mcdonough MD LABORATORY Final Result * CMP (ABSTRACTED LAB) (05/17/2021) SODIUM S/P/B 143 136 - 145 POTASSIUM S/P/B 4.3 3.5 - 5.1 CHLORIDE S/P/B 105 98 - 108 CO2 25 21 - 32 BUN 18 7 - 18 CREATININE S/P/B 0.93 0.7 - 1.3 CALCIUM S/P/B 9.1 8.5 - 10.1 GLUCOSE 104 70 - 99 mg/dL TOTAL PROTEIN S/P/B 6.9 6.4 - 8.2 ALBUMIN S/P/B 3.9 3.4 - 5.0 AST 31 15 - 37 ALT 31 16 - 63 ALKALINE PHOSPHATASE S/P/B 85 46 - 116 BILIRUBIN TOTAL S/P/B 0.8 0.00 - 1.00 05/17/[address] [facility] Johnnie Mcdonough MD LAB-OUTSIDE/ABSTRACTED Final Result documented in this encounter Visit Diagnoses Not on filedocumented in this encounter Care Teams Director Strategic Account Management Relationship Specialty Start Date End Date Johnnie Mcdonough MD [address] [place] [address] PCP - General INTERNAL MEDICINE 12/10/19 Meño Vargas MD [address] [place] [address] [place] Elevator Dispatcher CARDIOVASCULAR DISEASE 12/10/19 2 documented as of this encounter
--- OUTSIDE RECORDS SUMMARY | 2024-07-15 08:13 | XMS_ITS | Encounter Summary ---
Author Organization [facility] Address [address] [place] [address] Care Team Providers Care Feed Mill Supervisor Name Role Phone Johnnie Mcdonough MD Primary Care Provider [phone] Meño Vargas MD Unavailable Unavailabl e Encounter Details Date Type Department Care Team (Late st Contact Info) Description 11/07/2020 Abstract [facility] [address] [place] [phone] Meño Vargas MD Social History Tobacco Use [...] file Not on file Not on file documented as of this encounter Functional Status [...] Author Status No 01/19/2020 2:15 PM CDT lAma Hager RN Active * Do you have [...] Upcoming Encounters Date Type Department Care Team ([facility] st Contact Info) Description 09/28/2024 2:00 PM CDT Office Visit [facility] [address] [place] [address] Donald Pantoja MD [address] [facility] [address] [place] [address] documented as of this encounter Procedures Procedure Name Priority Date/Time Associated Diagnosis Comments CMP (ABSTRACTED LAB) Routine 11/02/2020 HEMOGLOBIN, GLYCOSYLATED Routine 11/02/2020 LIPID PANEL Routine 11/02/2020 documented in this encounter Results * HEMOGLOBIN, GLYCOSYLATED (11/02/2020) HGB A1C 5.8 <5.7 % 11/02/2020 [facility] Abstract LABORATORY Final Result * LIPID PANEL (11/02/2020) CHOLESTEROL 158 0 - 200 HDL 57 40 - 60 TRIGLYCERIDES 67 0 - 150 LDL (CALCULATED) 88 <130 11/02/2020 [facility] Abstract LABORATORY Final Result * CMP (ABSTRACTED LAB) (11/02/2020) SODIUM S/P/B 140 136 - 145 POTASSIUM S/P/B 4.1 3.5 - 5.1 CHLORIDE S/P/B 103 98 - 108 CO2 25 21 - 32 BUN 16 7 - 18 CREATININE S/P/B 0.99 0.7 - 1.3 EGFR NON-AFR. AMER. >60 <=90 CALCIUM S/P/B 9.1 8.5 - 10.1 GLUCOSE 95 70 - 99 mg/dL TOTAL PROTEIN S/P/B 6.8 6.4 - 8.2 ALBUMIN S/P/B 3.9 3.5 - 5.0 AST 21 15 - 37 ALT 29 16 - 63 ALKALINE PHOSPHATASE S/P/B 78 46 - 116 BILIRUBIN TOTAL S/P/B 0.9 0.00 - 1.00 11/02/2020 [facility] Abstract LAB-OUTSIDE/ABSTRACTED Final Result documented in this encounter Visit Diagnoses Not on filedocumented in this encounter Care Teams Feed Mill Supervisor Relationship Specialty Start Date End Date Johnnie Mcdonough MD [address] [place] [address] PCP - General INTERNAL MEDICINE 12/10/19 Meño Vargas MD [address] [place] [address] [place] Sweatband Decorating Machine Operator CARDIOVASCULAR DISEASE 12/10/19 07/01/24 documented as of this encounter
--- OUTSIDE RECORDS SUMMARY | 2024-07-15 08:13 | XMS_ITS | Encounter Summary ---
Author Organization [facility] Address [address] [place] [address] Care Team Providers Care Night Patrol Inspector Name Role Phone Johnnie Mcdonough MD Primary Care Provider [phone] Meño Vargas MD Unavailable Unavailabl e Encounter Details Date Type Department Care Team ([facility] Contact Info) Description 12/30/2019 Abstract [facility] [address] [place] [address] Abstract, Doc [facility] Social History Tobacco Use Types Packs/Day Years Used Date Smoking Tobacco: Never Smokeless Tobacco: Never Alcohol Use Standard Drinks/Week Comments Yes 0 (1 standard drink = 0.6 oz pur e alcohol) Sex and Gender Information Value Date Recorded Sex Assigned at Not on file Legal Sex Male 10:25 PM CDT Gender Identity Male 07/30/2021 6:40 AM CDT Sexual Orientation Straight 07/30/2021 6: 40 AM CDT Occupation Industry Job Start Date Job End Date Retired Not on file Not on file Not on file documented as of this encounter Plan of Treatment Upcoming Encounters Date Type Department Care Team (Late Contact Info) Description 09/28/2024 2:00 PM CDT Office Visit [facility] [place] [address] Donald Pantoja MD [address] [facility] [address] [place] [address] documented as of this encounter Procedures Procedure Name Priority Date/Time Associated Diagnosis Comments MAGNESIUM (OUTSIDE LAB) Routine 12/09/2019 T3 FREE (ABSTRACTED) Routine 12/09/2019 TSH (OUTSIDE LAB) Routine 12/09/2019 BASIC METABOLIC PANEL Routine 12/09/2019 CBC W/DIFF AUTOMATED Routine 12/09/2019 THYROXINE, FREE (FT4) Routine 12/09/2019 documented in this encounter Results * T3 FREE (ABSTRACTED) (12/09/2019) FREE T3 2.76 12/09/2019 [facility] Abstract LAB-OUTSIDE/ABSTRACTED Final Result * THYROXINE, FREE (FT4) (12/09/2019) FREE T4 1.07 12/09/2019 [facility] Abstract LABORATORY Final Result * TSH (OUTSIDE LAB) (12/09/2019) TSH 2.02 12/09/2019 us [facility] Abstract LAB-OUTSIDE/ABSTRACTED Final Result * MAGNESIUM (OUTSIDE LAB) (12/09/2019) MAGNESIUM 2.2 12/09/2019 us Doc [facility] Abstract LAB-OUTSIDE/ABSTRACTED Final Result * BASIC METABOLIC PANEL (12/09/2019) Pathologist [facility] SODIUM S/P/B 139 POTASSIUM S/P/B 4.3 CO2 26 CHLORIDE S/P/B 106 GLUCOSE 139 mg/dL CALCIUM S/P/B 9.3 BUN 12 CREATININE S/P/B 1.2 0.7 - 1.3 EGFR AFR. AMER. 60 <=90 EGFR NON-AFR. AMER. 60 <=90 12/09/2019 [facility] Abstract LABORATORY Final Result * CBC W/DIFF AUTOMATED (12/09/2019) WBC 6.0 RBC 5.07 HGB 15.6 HCT 45.4 MCV 89.5 MCH 30.8 MCHC 34.4 RDW 12.5 PLT 238 MPV 8.6 NEUTROPHILS % 57.7 LYMPHOCYTES % 29.5 MONOCYTES % 8.1 EOSINOPHILS % 3.6 BASOPHILS % 0.8 ABS. NEUTROPHILS 3.5 ABS. LYMPHOCYTES 1.78 ABS. MONOCYTES 0.49 ABS. BASOPHILS 0.05 12/09/2019 [facility] Abstract LABORATORY Final Result documented in this encounter Visit Diagnoses Not on filedocumented in this encounter Additional Health Concerns Infection Onset Date Last Indicated Resolved Time COVID-19 Rule Out 01/10/2020 01/10/2020 01/11/2020 3:36 PM CDT COVID-19 Rule Out 01/15/2020 01/15/2020 01/17/2020 12:26 PM CDT documented as of this encounter Care Teams Night Patrol Inspector Relationship Specialty Start Date End Date Johnnie Mcdonough MD [address] [place] [address] PCP - General INTERNAL MEDICINE 12/10/19 Meño Vargas MD [address] [place] [address] [place] Waiter/Waitress Cabin Class CARDIOVASCULAR DISEASE 12/10/19 07/01/24 documented as of this encounter
--- OUTSIDE RECORDS SUMMARY | 2024-07-15 08:14 | XMS_ITS | Encounter Summary ---
Author Organization [facility] Address [address] [place] [address] Care Team Providers Care Cytology Teacher Name Role Phone Johnnie Mcdonough MD Primary Care Provider [phone] Meño Vargas MD Unavailable Unavailabl e Encounter Details Date Type Department Care Team (Late st Contact Info) Description 07/20/2020 Abstract [facility] [address] [place] [phone] Meño Vargas MD Social History Tobacco Use [...] Upcoming Encounters Date Type Department Care Team ([facility] st Contact Info) Description 09/28/2024 2:00 PM CDT Office Visit [facility] [address] [place] [address] Donald Pantoaj MD [address] [facility] [address] [place] [address] documented as of this encounter Procedures Procedure Name Priority Date/Time Associated Diagnosis Comments CBC W/AUTO DIFF Routine 07/20/2020 CMP (OUTSIDE LAB) Routine 07/20/2020 HEMOGLOBIN, GLYCOSYLATED Routine 07/20/2020 documented in this encounter Results * CBC W/AUTO DIFF (07/20/2020) WBC 5.6 4.8 - 10.8 RBC 4.84 4.70 - 6.10 HGB 14.6 12.4 - 15.3 HCT 44.2 37.0 - 46.0 MCV 91.3 78.0 - 102.0 MCH 30.2 27.0 - 31.0 MCHC 33.0 32.0 - 36.0 RDW 13.2 11.6 - 14.4 PLT 203 150 - 420 MPV 8.5 8.7 - 11.0 07/20/2020 [facility] Abstract LABORATORY Final Result * HEMOGLOBIN, GLYCOSYLATED (07/20/2020) HGB A1C 5.3 <5.7 % 07/20/2020 us Doc [facility] Abstract LABORATORY Final Result * CMP (OUTSIDE LAB) (07/20/2020) SODIUM S/P/B 141 136 - 145 POTASSIUM S/P/B 4.5 3.5 - 5.1 CHLORIDE S/P/B 104 98 - 108 CO2 28 21 - 32 BUN 17 7 - 18 CREATININE S/P/B 1.04 0.7 - 1.3 EGFR NON-AFR. AMER. >60 <=90 CALCIUM S/P/B 9.0 8.5 - 10.1 GLUCOSE 86 70 - 99 mg/dL TOTAL PROTEIN S/P/B 6.7 6.4 - 8.2 ALBUMIN S/P/B 3.9 3.5 - 5.0 AST 22 15 - 37 ALT 25 16 - 63 ALKALINE PHOSPHATASE S/P/B 66 46 - 115 BILIRUBIN TOTAL S/P/B 0.7 0.00 - 1.00 07/20/2020 [facility] Abstract LAB-OUTSIDE/ABSTRACTED Final Result documented in this encounter Visit Diagnoses Not on filedocumented in this encounter Care Teams Cytology Teacher Relationship Specialty Start Date End Date Johnnie Mcdonough MD [address] [place] [address] PCP - General INTERNAL MEDICINE 12/10/19 Meño Vargas MD [address] [place] [address] [place] Avionics Systems Technician CARDIOVASCULAR DISEASE 12/10/19 07/01/24 documented as of this encounter
--- OUTSIDE RECORDS SUMMARY | 2024-07-15 08:14 | XMS_ITS | Encounter Summary ---
Author Organization [facility] Address [address] [place] [address] Care Team Providers Care Resort Keeper Name Role Phone Johnnie Mcdonough MD Primary Care Provider [phone] Meño Vargas MD Unavailable Unavailabl e Encounter Details Date Type Department Care Team (Late st Contact Info) Description 01/13/2020 Prep for Procedure [facility] [address] [place], [place] [id number] Dewayne Melo MD [address] [place] [address] Social History Tobacco Use Types Packs/Day Years [...] Exposure Response Date Recorded In the last month, have you been in contact with someone who was confirmed or suspected to have Coronavirus / COVID-19? No / Unsure 01/15/2020 10:45 AM CDT documented as of this encounter Plan of Treatment Upcoming Encounters Date Type Department Care Team (Late Contact Info) Description 09/28/2024 2:00 PM CDT Office Visit [facility] [address] [place] [address] Donald Pantoja MD [address] [facility] [address] [place] [address] documented as of this encounter Visit Diagnoses Not on filedocumented in this encounter Additional Health Concerns Infection Onset Date Last Indicated Resolved Time COVID-19 Rule Out 01/15/2020 01/15/2020 01/17/2020 12:26 PM CDT documented as of this encounter Care Teams Resort Keeper Relationship Specialty Start Date End Date Johnnie Mcdonough MD [address] [place] [address] PCP - General INTERNAL MEDICINE 12/10/19 Meño Vargas MD [address] [place] [address] [place] Lead Furnace Operator CARDIOVASCULAR DISEASE 12/10/19 07/01/24 documented as of this encounter
[2024-07-15 08:25] LABS: Basophils Absolute Auto 0.03 K/mm3 (0.00-0.10); Basophils Percent Auto 0.4 % (0.0-1.0); Eosinophils Absolute Auto 0.15 K/mm3 (0.02-0.50); Eosinophils Percent Auto 1.9 % (1.0-6.0); Hematocrit 45.5 % (37.0-46.0); Hemoglobin 15.2 g/dL (12.4-15.3); Immature Granulocyte Absolute 0.03 K/mm3 (0.00-0.00); Immature Granulocyte Percent A 0.4 % (0.0-0.0); Lymphocytes Absolute Auto 1.08 K/mm3 (1.10-4.50); Lymphocytes Percent Auto 13.9 % (18.0-42.0); Mean Corpuscular HGB Conc 33.4 g/dL (32-36); Mean Corpuscular Hemoglobin 30.2 pg (27.0-31.0); Mean Corpuscular Volume 90.5 fL (78.0-102.0); Mean Platelet Volume 8.3 fl (8.7-11.0); Monocytes Absolute Auto 0.69 K/mm3 (0.10-0.90); Monocytes Percent Auto 8.9 % (2.0-11.0); Neutrophils Absolute Auto 5.81 K/mm3 (1.70-7.20); Neutrophils Percent Auto 74.5 % (50.0-70.0); Platelet Count Result 197 K/mm3 (150-420); Red Blood Count 5.03 M/mm3 (4.70-6.10); Red Cell Distribution Width 12.8 % (11.6-14.4); White Blood Count 7.8 K/mm3 (4.8-10.8)
[2024-07-15 08:26] LABS: Add Urine Microscopic? NO; Appearance Urine Clear (Clear); Bilirubin Urine Negative (Negative); Blood Urine Trace-intact (Negative); Color Urine Light Yellow (Yellow); Glucose Urine UA Negative (Negative); Ketones Urine Negative (Negative); Leukocyte Esterase Ur Negative (Negative); Nitrate Urine Negative (Negative); Protein Urine Negative (Negative); Specific Grav Ur 1.015 (1.010-1.020); Urobilinogen Urine 0.2 mg/dL (0.2-1.0)
[2024-07-15 08:31] LABS: MALB Creatinine Ratio 16.2 mg/g (0-30); Microalbumin Urine Random < 13.0 mg/L
[2024-07-15 08:33] LABS: Hemoglobin A1C 6.5 % (<5.7)
[2024-07-15 09:32] LABS: Alanine Aminotransferase 26 U/L (16-63); Albumin Level 3.9 g/dL (3.4-5.0); Alkaline Phosphatase 105 U/L (46-116); Anion Gap 10 mmol/L (4-12); Aspartate Amino Transferase 12 U/L (15-37); Bilirubin,Total 1.1 mg/dL (0.00-1.00); Blood Urea Nitrogen 12 mg/dL (7-18); Calcium 9.1 mg/dL (8.5-10.1); Carbon Dioxide 25 mmol/L (21-32); Chloride 106 mmol/L (98-108); Cholesterol 135 mg/dL (0-200); Creatine Kinase 111 U/L (39-308); Estimated Glomerular Filt Rate > 60; Free T4 Free Thyroxine 1.02 ng/dL (0.76-1.46); Glucose 127 mg/dL (70-99); HDL Direct 49 mg/dL (40-60); LDL Cholesterol Calculated 72 mg/dL (<130); Osmolality Calculated 293 mOsm/kg (285-295); Potassium 4.2 mmol/L (3.5-5.1); Sodium 141 mmol/L (136-145); Thyroid Stimulating Hormone 2.25 uIU/mL (0.36-3.74); Total Protein 6.6 g/dL (6.4-8.2); Triglycerides 72 mg/dL (0-150)
== END 2024-07-15 08:05 | disposition home or self-care (01) ==
LOC: CHSLAB 08:05
PROVIDERS: PCP Internal Medicine; Visit Provider Internal Medicine
DX: E11.65 Type 2 diabetes mellitus with hyperglycemia (principal); I10 Essential (primary) hypertension; E78.2 Mixed hyperlipidemia; R13.12 Dysphagia, oropharyngeal phase; I25.10 Atherosclerotic heart disease of native coronary artery without angina pectoris
CPT/HCPCS: 36415; 80053; 80061; 81003; 82043; 82550; 83036; 84439; 84443; 85025

== ENCOUNTER 2024-08-02 09:32 | Outpatient (CLI) | payer MEDICARE, SELFPAY ==
--- OUTSIDE RECORDS SUMMARY | 2024-08-02 10:39 | XMS_ITS ---
Author Organization [facility] [address] [place] [address] Care Team Providers Care Stiff Leg Derrick Operator Name Role Phone Johnnie Mcdonough MD Primary [...] 06/04/2017 Assessment & Plan (06/04/2017 10:46 AM MOMD TEACHER): With symptoms of constant need to clear [...]
--- OUTSIDE RECORDS SUMMARY | 2024-08-02 10:39 | XMS_ITS | Encounter Summary ---
Author Organization [facility] Address [address] [place] [address] Care Team Providers Care After School Counselor Name Role Phone Johnnie Mcdonough MD Primary Care Provider [phone] Meño Vargas MD Unavailable Unavailabl e Donald Pantoja MD Unavailable [phone] Encounter Details Date Type Department Care Team (Late st Contact Info) Description 11/07/2020 Abstract [facility] [address] [place] [address] Meño Vargas MD Social History Tobacco Use [...] Description 09/28/2024 2:00 PM CDT Office Visit [facility] [place] [address] Donald Pantoja MD [address] [facility][1] [address] [place] [address] documented as of this encounter Procedures Procedure [...] on filedocumented in this encounter Care Teams After School Counselor Relationship Specialty Start Date End Date Johnnie Mcdonough MD [address] [place] [address] PCP - General INTERNAL MEDICINE 12/10/19 Meño Vargas MD [address] [place] [address] [place] Carton Maker CARDIOVASCULAR DISEASE 12/10/19 07/01/24 Donald Pantoja MD [address] [facility][1] [address] [place] [address] Physician INTERVENTIONAL CARDIOLOGY 07/16/24 documented as of this encounter
--- OUTSIDE RECORDS SUMMARY | 2024-08-02 10:39 | XMS_ITS | Encounter Summary ---
Author Organization [facility] Address [address] [place] [address] Care Team Providers Care Grain Origination Specialist Name Role Phone Johnnie Mcdonough MD Primary Care Provider [phone] Meño Vargas MD Unavailable Unavailabl e Donald Pantoja MD Unavailable [phone] Encounter Details Date Type Department Care Team (Late st Contact Info) Description 07/30/2021 Abstract [facility] [address] [place] [address] Meño Vargas MD Social History Tobacco Use [...] Description 09/28/2024 2:00 PM CDT Office Visit [facility] [place] [address] Donald Pantoja MD [address] [address] documented as of this encounter Procedures Procedure Name Priority Date/Time Associated Diagnosis Comments CMP (ABSTRACTED LAB) Routine 05/17/2021 HEMOGLOBIN, GLYCOSYLATED Routine 05/17/2021 LIPID PANEL Routine 05/17/2021 CK (CPK) Routine 05/17/2021 documented in this encounter Results * HEMOGLOBIN, GLYCOSYLATED (05/17/2021) HGB A1C 6.0 <5.7 % 05/17/2021 Result [facility] Johnnie Mcdonough MD LABORATORY Final Result * LIPID PANEL (05/17/2021) CHOLESTEROL 175 0 - 200 HDL 55 40 - 60 TRIGLYCERIDES 73 0 - 150 LDL (CALCULATED) 105 <130 05/17/2021 Result [facility] Johnnie Mcdonough MD LABORATORY Final Result * CK (CPK) (05/17/2021) CPK 221 39 - 308 05/17/2021 Result [facility] Johnnie Mcdonough MD LABORATORY Final Result * [...] S/P/B 0.8 0.00 - 1.00 05/17/2021 Result Bharti Mcdonough MD LAB-OUTSIDE/ABSTRACTED Final Result documented in this encounter Visit Diagnoses Not on filedocumented in this encounter Care Teams Grain Origination Specialist Relationship Specialty Start Date End Date Johnnie Mcdonough MD [address] [place] [address] PCP - General INTERNAL MEDICINE 12/10/19 Meño Vargas MD [address] [place] [address] [place] Item Repair Manager CARDIOVASCULAR DISEASE 12/10/19 07/01/24 Donald Pantoja MD [address] [facility] [address] [place] [address] Physician INTERVENTIONAL CARDIOLOGY 07/16/24 documented as of this encounter
--- OUTSIDE RECORDS SUMMARY | 2024-08-02 10:39 | XMS_ITS | CONTINUITY OF CARE DOCUMENT ---
Author Name ortiz alcantar Address Unknown Organization [facility] Address [address] [facility] [address] [place] [address] Phone [phone] Care Team Providers Care Environmental Attorney Name Role Phone Lavon HANEY, Devon Unavailable IMER DE LA ROSA MD Unavailable [phone] INSURANCE PROVIDERS Payer name Policy type / Coverage type [place] red alliance party ID [employer] OPEN ACCESS Other [id number] [place] [employer] Medicare [id number]
--- OUTSIDE RECORDS SUMMARY | 2024-08-02 10:39 | XMS_ITS | Encounter Summary ---
Author Organization [facility] Address [address] [place] [address] Care Team Providers Care Transfer Controller Name Role Phone Johnnie Mcdonough MD Primary Care Provider [phone] Meño Vargas MD Unavailable Unavailabl e Donald Pantoja MD Unavailable [phone] Encounter Details Date Type Department Care Team (Late st Contact Info) Description 07/20/2020 Abstract [facility] [address] [place] [address] Meño Vargas MD Social History Tobacco Use [...] Upcoming Encounters Date Type Department Care Team ([facility] st Contact Info) Description 09/28/2024 2:00 PM CDT Office Visit [facility] [place] [address] Donald Pantoja MD [address] [facility] [address] [place] [address] documented as of this encounter Procedures Procedure [...] on filedocumented in this encounter Care Teams Transfer Controller Relationship Specialty Start Date End Date Johnnie Mcdonough MD [address] [place] [address] PCP - General INTERNAL MEDICINE 12/10/19 Meño Vargas MD [address] [place] [address] [place] Cutting Machine Fixer CARDIOVASCULAR DISEASE 12/10/19 07/01/24 Donald Pantoja MD [address] [address] Physician INTERVENTIONAL CARDIOLOGY 07/16/24 documented as of this encounter
--- OUTSIDE RECORDS SUMMARY | 2024-08-02 10:39 | XMS_ITS | Encounter Summary ---
Author Organization [facility] Address [address] [place] [address] Care Team Providers Care Assistant Manager Retail Name Role Phone Johnnie Mcdonough MD Primary Care Provider Encounter Details Date Type Department Care Team (Late st Contact Info) Description 01/17/2021 Telephone [facility] [address] [place], [place] [id number] Mateus Bolden, RT Social History Tobacco Use Types Packs/Day Years Used Date Smoking Tobacco: Never Smokeless Tobacco: Never Alcohol Use Standard Drinks/Week Comments Yes 0 (1 standard drink = 0.6 oz pur e alcohol) 3 -4 beers per week Sex and Gender Information Value Date Recorded Sex Assigned at Not on file Legal Sex Male 11:16 AM ASSEMBLY ROOM SUPERVISOR Gender Identity Male 12/27/2020 9:51 AM CDT Sexual Orientation Straight 12/27/2020 9: 51 AM CDT documented as of this encounter Plan of Treatment Not on file documented as of this encounter Visit Diagnoses Not on filedocumented in this encounter Care Teams Assistant Manager Retail Relationship Specialty Start Date End Date Johnnie Mcdonough MD [address] [place] [address] PCP - General Internal Medicine 04/29/17 documented as of this encounter
--- OUTSIDE RECORDS SUMMARY | 2024-08-02 10:39 | XMS_ITS | Encounter Summary ---
Author Organization [facility] Address [address] [place] [address] Care Team Providers Care Paper Ruler Name Role Phone Johnnie Mcdonough MD Primary Care Provider [phone] Meño Vargas MD Unavailable Unavailabl e Donald Pantoja MD Unavailable [phone] Encounter Details Date Type Department Care Team (Late st Contact Info) Description 01/13/[address] [facility] Surgical [address] [place], [place] [phone] Dewayne Melo MD [address] [place] [address] Social History Tobacco Use Types [...] Description 09/28/2024 2:00 PM CDT Office Visit [facility] [place] [address] Donald Pantoja MD [address] [facility] [address] [place] [address] documented as of this encounter Visit Diagnoses Not on filedocumented in this encounter Additional Health Concerns Infection Onset Date Last Indicated Resolved Time COVID-19 Rule Out 01/15/2020 01/15/2020 01/17/2020 12:26 PM CDT documented as of this encounter Care Teams Paper Ruler Relationship Specialty Start Date End Date Johnnie Mcdonough MD [address] [place] [address] PCP - General INTERNAL MEDICINE 12/10/19 Meño Vargas MD [address] [place] [address] [place] Press Set Up Person CARDIOVASCULAR DISEASE 12/10/19 07/01/24 Donald Pantoja MD [address] [place] [address] [address] [place] [address] Physician INTERVENTIONAL CARDIOLOGY 07/16/24 documented as of this encounter"
--- OUTSIDE RECORDS SUMMARY | 2024-08-02 10:39 | XMS_ITS | Encounter Summary ---
Author Organization [facility] Address [address] [place] [address] Care Team Providers Care Baccarat Dealer Name Role Phone Johnnie Mcdonough MD Primary Care Provider [phone] Meño Vargas MD Unavailable Unavailabl e Donald Pantoja MD Unavailable [phone] Encounter Details Date Type Department Care Team ([facility] Contact Info) Description 12/30/2019 [facility] [address] [place] [id number] Abstract, Doc Pre[facility] Social History Tobacco Use [...] Description 09/28/2024 2:00 PM CDT Office Visit [facility] [place] [address] Donald Pantoja MD [address] [facility] [address] [place] [address] documented as of this encounter Procedures Procedure [...] Final Result * BASIC METABOLIC PANEL (12/09/2019) SODIUM S/P/B 139 POTASSIUM S/P/B 4.3 CO2 [...] documented as of this encounter Care Teams Baccarat Dealer Relationship Specialty Start Date End Date Johnnie Mcdonough MD [address] [place] [address] PCP - General INTERNAL MEDICINE 12/10/19 Meño Vargas MD [address] [place] [address] [place] Detailer Furniture CARDIOVASCULAR DISEASE 12/10/19 07/01/24 Donald Pantoja MD [address] [facility] [address] [place] [address] Physician INTERVENTIONAL CARDIOLOGY 07/16/24 documented as of this encounter
--- OUTSIDE RECORDS SUMMARY | 2024-08-02 10:39 | XMS_ITS | Clinical Summary ---
Author Organization [facility] Address [address] [place] [address] Care Team Providers Care Belt Back Operator Name Role Phone Johnnie Mcdonough MD Primary Care Provider Donald Pantoja MD Unavailable [phone] Allergies Active Allergy Reactions Criticality Noted Date [...] S/P CABG (coronary artery bypass graft) 02/18/20 Paroxysmal atrial fibrillation ([facility]) 02/18/2020 Coronary artery disease 01/18/2020 Aspirin allergy 01/13/2020 Essential hypertension 12/25/2019 Hyperlipidemia Diabetes ([facility]) Cancer ([facility]) Arthritis Encounters Date Type Department Care Team Description 07/02/2024 [facility]phone [facility] [address] [place] [phone] Kurtis Rodríguez MD Reschedule from Last 3 [...] Description 09/28/2024 2:00 PM CDT Office Visit [facility] [address] [place] [phone] Donald Pantoja MD [address] [facility] [address] [place] [address] Health Maintenance Due Date Last Done Comments [...] Final Result * DIABETIC RETINOPATHY EXAM (03/24/2020) Documents Scanned SCANNING Final Result [facility] ON[facility] from Last 3 Months or Most Recently Relevant to Health Maintenance Insurance [facility] Advance Directives * Full Code (Latest Code Status on File) Date Activated Date Inactivated Comments 01/18/2020 5:21 PM 01/23/2020 2:02 PM * Full Code Date Activated Date Inactivated Comments 01/13/2020 4:46 PM 01/13/2020 7:49 PM Care Teams Belt Back Operator Relationship Specialty Start Date End Date Johnnie Mcdonough MD [address] [place] [phone] PCP - General INTERNAL MEDICINE 12/10/19 Donald Pantoja MD [address] [address] Physician INTERVENTIONAL CARDIOLOGY 07/16/24
--- OUTSIDE RECORDS SUMMARY | 2024-08-02 10:39 | XMS_ITS | Clinical Summary ---
Author Organization [facility] [address] [place] [address] Care Team Providers Care Door Liner Name Role Phone Johnnie Mcdonough MD Primary Care Provider [phone] Allergies Active Allergy Reactions Criticality Noted Date Comments Aspirin Hives Medium 06/04/2017 Nitroglycerin Other (See comments) Low 11/05/2022 Vasovagal response Other Hives Medium 12/10/2019 Fresh strawberries Medications sertraline (ZOLOFT) 50 mg tablet Take 1 tablet (50 mg total) by mouth daily. 30 tablet 3 11/07/2017 Active DOXYCYCLINE HYCLATE 100 mg capsule 06/01/2019 Active amLODIPine (NORVASC) 5 mg tablet 10/21/2020 Active clopidogreL (PLAVIX) 75 mg tablet 11/25/2020 Active metoprolol XL (TOPROL-XL) 25 mg extended release tablet 12/30/2020 Acti ve spironolactone (ALDACTONE) 25 mg tablet Active metFORMIN XR (GLUCOPHAGE XR) 500 mg 24 hr tablet Take 1 tablet (500 mg total) by mouth 2 (two) times a day 12/30/2020 Active atorvastatin (LIPITOR) 80 mg tablet 04/13/2024 Active vit C/E/Zn/coppr/nadeem tein/zeaxan (PRESERVISION AREDS-2 ORAL) Take 1 capsule by mouth daily Active Active Problems Problem Noted Date Diagnosed Date Axillary nerve palsy 06/18/2024 Left rotator cuff tear arthropathy 06/18/2024 Arthritis 01/01/2021 Cancer 01/01/2021 Diabetes 01/01/2021 Hyperlipidemia 01/01/2021 Paroxysmal atrial fibrillation 02/18/2020 S/P CABG (coronary artery bypass graft) 02/18/20 20 Coronary artery disease 01/18/2020 Aspirin allergy 01/13/2020 Essential hypertension 12/25/2019 Oropharyngeal dysphagia 06/04/2017 Assessment & Plan (06/04/2017 10:46 AM FORMING ACID DUMPER): With symptoms of constant need to clear [...] Department Care Team Description 06/22/2024 Orders Only [facility] Medicine [address] [place] [phone] Froy Bronson MD Axillary nerve palsy (Primary Dx); 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 06/18/2024 9:45 AM FORMING ACID DUMPER Office Visit [facility] [address] [place] [phone] Froy Bronson MD Left rotator cuff tear arthropathy (Primary Dx); Axillary nerve palsy 06/18/2024 Orders Only [facility] [address] [place] [phone] Froy Bronson MD Left rotator cuff tear arthropathy (Primary Dx); Axillary nerve palsy; 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 06/18/2024 Orders Only [facility] [address] [place] [phone] Froy Bronson MD Axillary nerve palsy (Primary Dx); 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 05/27/2024 9:30 AM FORMING ACID DUMPER Office Visit [facility] [address] [place] [phone] [place], Quiana, [place] 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 (Primary Dx); Left rotator cuff tear arthropathy; Acute shoulder pain, unspecified laterality 05/27/2024 9:20 AM FORMING ACID DUMPER Ancillary Procedure [facility] Imaging at [address] [phone] Acute shoulder pain, unspecified laterality 05/24/2024 Ancillary [...] on file Legal Sex Male 11:16 AM FORMING ACID DUMPER Gender Identity Male 12/27/2020 9:51 AM CDT Sexual Orientation Straight 12/27/2020 9: 51 AM CDT Obstetrics History Last Filed Vital Signs Vital Sign Reading Time Taken Comments Blood Pressure 154/79 06/18/2024 9:48 AM FORMING ACID DUMPER Pulse 83 06/18/2024 9:48 AM FORMING ACID DUMPER Temperature - - Respiratory Rate 16 01/18/2021 2:03 PM CDT Oxygen Saturation 97% 09/04/2017 9:32 AM CDT Inhaled Oxygen Concentration - - Weight 104.8 kg (231 lb 1.6 oz) 06/18/2024 9:48 AM FORMING ACID DUMPER Height 182.9 cm (6') 06/18/2024 9:48 AM FORMING ACID DUMPER Body Mass Index 31.34 06/18/2024 9:48 AM FORMING ACID DUMPER Plan of Treatment Health Maintenance Due Date [...] Read Routine (OP Routine) 05/27/2024 9:24 AM FORMING ACID DUMPER Acute shoulder pain, unspecified laterality MRI TRANSFER OF OUTSIDE FILMS Routine 05/24/2024 12:00 AM FORMING ACID DUMPER from Last 3 Months Results * XR Shoulder Left 2 or More Views (05/27/2024 9:24 AM FORMING ACID DUMPER) Anatomical Region Laterality Modality Upper Extremities, Shoulder Left Digi almas Radiography Narrative 05/27/2024 2:49 PM FORMING ACID DUMPER X-rays of the left shoulder are viewed [...] * MRI Outside Reference (05/24/2024 12:00 AM FORMING ACID DUMPER) Narrative [facility] - 05/27/2024 9:28 AM FORMING ACID DUMPER This order has been auto-finalized and does not contain a result. us Not In File Miscellaneous IMG MRI PROCEDURES Fin al Result [facility] from Last 3 Months Insurance UHC MEDICARE ADVANTAGE [facility] MEDICARE Address: [address] [address] [place] [address] [facility] MEDICARE [id number] [facility] MEDICARE Care Teams Door Liner Relationship Specialty Start Date End Date Johnnie Mcdonough MD [address] [place] [address] PCP - General Internal Medicine 04/29/17
--- OUTSIDE RECORDS SUMMARY | 2024-08-02 10:39 | XMS_ITS | Referral Summary ---
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 06/18/2024 Orders Only [facility] Medicine [address] [place] [phone] Froy Bronson MD Left rotator cuff tear arthropathy (Primary Dx); Axillary nerve palsy; 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 06/18/2024 Orders Only [facility] [address] [place] [phone] Froy Bronson MD Axillary nerve palsy (Primary Dx); 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 06/18/2024 9:45 AM PREFABRICATOR Office Visit [facility] [address] [place] [phone] Froy Bronson MD Left rotator cuff tear arthropathy (Primary Dx); Axillary nerve palsy 05/27/2024 9:20 AM PREFABRICATOR Ancillary Procedure [facility] Medical [facility] Imaging at [address] [phone] Acute shoulder pain, unspecified laterality 05/27/2024 9:30 AM PREFABRICATOR Office Visit [facility] Medical Group Orthopedic and Sports Medicine [address] [place] [phone] Ila Christy PA Pseudoparalysis due to [...] 06/04/2017 Assessment & Plan (06/04/2017 10:46 AM PREFABRICATOR): With symptoms of constant need to clear [...] on file Legal Sex Male 11:16 AM PREFABRICATOR Gender Identity Male 12/27/2020 9:51 AM CDT Sexual Orientation Straight 12/27/2020 9: 51 AM CDT Last Filed Vital Signs Vital Sign Reading Time Taken Comments Blood Pressure 154/79 06/18/2024 9:48 AM PREFABRICATOR Pulse 83 06/18/2024 9:48 AM PREFABRICATOR Temperature - - Respiratory Rate 16 01/18/2021 2:03 PM CDT Oxygen Saturation 97% 09/04/2017 9:32 AM CDT Inhaled Oxygen Concentration - - Weight 104.8 kg (231 lb 1.6 oz) 06/18/2024 9:48 AM PREFABRICATOR Height 182.9 cm (6') 06/18/2024 9:48 AM PREFABRICATOR Body Mass Index 31.34 06/18/2024 9:48 AM PREFABRICATOR Plan of Treatment Not on file Procedures Procedure Name Priority Date/Time Associated Diagnosis Comments XR SHOULDER LEFT 2 OR MORE VIEWS Schedule Routine, Read Routine (OP Routine) 05/27/2024 9:24 AM PREFABRICATOR Acute shoulder pain, unspecified laterality MRI TRANSFER OF OUTSIDE FILMS Routine 05/24/2024 12:00 AM PREFABRICATOR from Last 3 Months Results * XR Shoulder Left 2 or More Views (05/27/2024 9:24 AM PREFABRICATOR) Anatomical Region Laterality Modality Upper Extremities, Shoulder Left Digi almas Radiography Narrative 05/27/2024 2:49 PM PREFABRICATOR X-rays of the left shoulder are viewed [...] * MRI Outside Reference (05/24/2024 12:00 AM PREFABRICATOR) Narrative [facility] - 05/27/2024 9:28 AM PREFABRICATOR This order has been auto-finalized and does not contain a result. us Not In File Miscellaneous IMG MRI PROCEDURES Fin al Result [facility]_P[facility] from Last 3 Months Insurance [facility] MEDICARE ADVANTAGE [facility] MEDICARE [id number] [employer] MEDICARE Care Teams Cooler Room Worker Relationship Specialty Start Date End Date Johnnie Mcdonough MD [address] [place], [place] [id number] PCP - General Internal Medicine 04/29/17
--- NOTE | 2024-08-02 11:00 | NEURO_ITS ---
Impression: # Complains of left upper extremity weakness. ? # Left moderate to severe Carpal Tunnel Syndrome. ? # Left ulnar neuropathy across the elbow. ? # Abnormal needle/EMG exam with neurogenic changes in proximal muscles As well. ? # Likely cervical involvement; Needs MRI of C-spine. Nerve Conduction Studies Anti Sensory Summary Table ?Stim Site NR Peak (ms) P-T Amp (?V) Site1 Site2 Delta-P (ms) Dist (cm) Enoch (m/s) Left Median Anti Sensory (2-3nd Digit) Wrist ? 5.8 10.5 Wrist 2-3nd Digit 5.8 14.0 24 Wrist ? 6.3 12.3 Wrist 2-3nd Digit 5.8 14.0 24 Left Radial Anti Sensory (Base 1st Digit) Wrist ? 2.4 53.5 Wrist Base 1st Digit 2.4 0.0 Left Ulnar Anti Sensory (5th Digit) Wrist ? 3.2 26.1 Wrist 5th Digit 3.2 14.0 44 Motor Summary Table ?Stim Site NR Onset (ms) O-P Amp (mV) Site1 Site2 Delta-0 (ms) Dist (cm) Enoch (m/s) Left Median Motor (Abd Poll Brev) Wrist ? 5.1 3.2 Elbow Wrist 5.7 30.0 53 Elbow ? 10.8 5.3 Left Ulnar Motor (Abd Dig Minimi) Wrist ? 2.5 3.0 A Elbow Wrist 6.6 32.0 48 A Elbow ? 9.1 2.3 B Elbow Wrist 6.1 27.0 44 B Elbow ? 8.6 2.2 F Wave Studies ?NR F-Lat (ms) L-R F-Lat (ms) Left Median (Mrkrs) (Abd Poll Brev) ? 30.75 Left Ulnar (Mrkrs) (Abd Dig Min) ? 33.62 EMG ?Side Muscle Nerve Root Ins Act Fibs Amp Dur Recrt Comment Left 1stDorInt Ulnar C8-T1 Nml Nml Incr >12ms +1 Left Ext Indicis Radial (Post Int) C7-8 Nml Nml Incr >12ms +1 Left Ext Digitorum Radial (Post Int) C7-8 Nml Nml Incr >12ms +1 Left BrachioRad Radial C5-6 Nml Nml Incr >12ms +1 Left PronatorTeres Median C6-7 Nml Nml Incr >12ms +1 Left Abd Poll Brev Median C8-T1 Nml Nml Incr >12ms +1 Left ABD Dig Min Ulnar C8-T1 Nml Nml Incr >12ms +1 Left FlexPolLong Median (Ant Int) C7-8 Nml Nml Incr >12ms +1 Left Abd Poll Long Radial (Post Int) C7-8 Nml Nml Incr >12ms +1 Left Biceps Musculocut C5-6 Nml Nml Incr >12ms +1 Left Triceps Radial C6-7-8 Nml Nml Incr >12ms +1 Left Deltoid Axillary C5-6 Nml Nml Incr >12ms +1 MTDD
== END 2024-08-02 09:33 | disposition home or self-care (01) ==
PROVIDERS: PCP Internal Medicine; Visit Provider Orthopaedic Surgery
DX: G54.0 Brachial plexus disorders (principal); M19.90 Unspecified osteoarthritis, unspecified site; R29.818 Other symptoms and signs involving the nervous system; G56.02 Carpal tunnel syndrome, left upper limb; G56.22 Lesion of ulnar nerve, left upper limb; R94.131 Abnormal electromyogram [EMG]
CPT/HCPCS: 95886; 95909

== ENCOUNTER 2024-08-21 07:34 | Outpatient (CLI) | payer MEDICARE, SELFPAY ==
--- NOTE | ~2024-08-21 | MR_ITS ---
MRI of the cervical spine Clinical History: Cervical spine nerve compression Technique: Axial T2-weighted and gradient images, and sagittal T1-weighted, T2-weighted, and STIR leoncio ges were acquired. COMPARISON: 07/04/2022 Findings: There is mild reversal normal cervical lordosis. No acute fracture or subluxation evident. Osseous alignment is essentially unchanged from prior exam. No suspicious bone marrow signal abnormal ity seen. At C2-C3, there is no disc bulge or herniation. There is mild facet hypertrophy. There is left neural foraminal narrowing. Right neural foramen probably preserved. No canal stenosis or cord compression. At C3-C4, there is disc osteophyte complex with mild to moderate canal stenosis and mild flattening t he ventral cord. There is bilateral facet arthropathy with bilateral neural foraminal narrowing. At C4-C5, there is advanced degenerative disc narrowing. There is large disc osteophyte complex with moderate to severe canal stenosis and cord compression. There is severe bilateral neural foraminal na rrowing. At C5-C6, there is advanced degenerative disc narrowing. There is large disc osteophyte complex with probable central disc protrusion resulting in severe canal stenosis and cord compression. There is se mateus bilateral neural foraminal narrowing. At C6-C7, there is advanced degenerative disc narrowing. Large disc osteophyte complex/disc protrusio n results in severe spinal canal stenosis and cord compression. There is severe bilateral neural fora olimpia narrowing. No abnormal signal seen in the spinal cord. Paravertebral soft tissues are unremarkable. Impression: Extensive, severe degenerative spondylosis of the cervical spine, especially from C4 through C7, wher e there is severe canal stenosis and cord compression. Multilevel severe bilateral neural foraminal n arrowing. Please see details above. Reviewed, dictated and finalized at [facility]. Impression: Extensive, severe degenerative spondylosis of the cervical spine, especially fr om C4 through C7, where there is severe canal stenosis and cord compression. Mu ltilevel severe bilateral neural foraminal narrowing. Please see details above.
--- OUTSIDE RECORDS SUMMARY | 2024-08-21 07:36 | XMS_ITS | Clinical Summary ---
Author Organization [facility] [address] [place] [address] Care Team Providers Care Straw Baler Name Role Phone Johnnie Mcdonough MD Primary [...] 06/04/2017 Assessment & Plan (06/04/2017 10:46 AM SENIOR DESIGN ENGINEER): With symptoms of constant need to clear [...] Encounters Date Type Department Care Team Description 08/10/2024 Telephone [facility] Orthopedics and Sports Medicine [address] [place] [phone] Froy Bronson MD 06/22/2024 Orders Only [facility] Medicine [address] [place] [phone] Froy Bronson MD Axillary nerve palsy (Primary Dx); 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 06/18/2024 9:45 AM SENIOR DESIGN ENGINEER Office Visit [facility] Medicine [address] [place] [phone] Froy Bronson MD Left rotator cuff tear arthropathy (Primary Dx); Axillary nerve palsy 06/18/2024 Orders Only [facility] [address] [place] [phone] Fory Bronson MD Left rotator cuff tear arthropathy (Primary Dx); Axillary nerve palsy; 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 06/18/2024 Orders Only [facility] [address] [place] [phone] Froy Bronson MD Axillary nerve palsy (Primary Dx); 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 05/27/2024 9:30 AM SENIOR DESIGN ENGINEER Office Visit [facility] Medical Group Orthopedic and Sports Medicine [address] [place] [phone] Ila Christy PA 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 (Primary Dx); Left rotator cuff tear arthropathy; Acute shoulder pain, unspecified laterality 05/27/2024 9:20 AM SENIOR DESIGN ENGINEER Ancillary Procedure [facility] Imaging at [address] [phone] Acute shoulder pain, unspecified laterality 05/24/2024 Ancillary [...] on file Legal Sex Male 11:16 AM SENIOR DESIGN ENGINEER Gender Identity Male 12/27/2020 9:51 AM CDT Sexual Orientation Straight 12/27/2020 9: 51 AM CDT Obstetrics History Last Filed Vital Signs Vital Sign Reading Time Taken Comments Blood Pressure 154/79 06/18/2024 9:48 AM SENIOR DESIGN ENGINEER Pulse 83 06/18/2024 9:48 AM SENIOR DESIGN ENGINEER Temperature - - Respiratory Rate 16 01/18/2021 2:03 PM CDT Oxygen Saturation 97% 09/04/2017 9:32 AM CDT Inhaled Oxygen Concentration - - Weight 104.8 kg (231 lb 1.6 oz) 06/18/2024 9:48 AM SENIOR DESIGN ENGINEER Height 182.9 cm (6') 06/18/2024 9:48 AM SENIOR DESIGN ENGINEER Body Mass Index 31.34 06/18/2024 9:48 AM SENIOR DESIGN ENGINEER Plan of Treatment Health Maintenance Due Date Last Done Comments Albumin Creatinine Ratio, Urine 1948 Depression Screening 1948 Fall Risk Assessment 1948 Hemoglobin A1C 1948 Hepatitis C Screening 1950 eGFR 1948 Dilated Eye Exam 1948 Foot Exam 1948 DTaP/Tdap/Td Vaccine (1 - Tdap) 1959 Hepatitis B Screening 1966 Well Visit 65+ 2013 Lipid Panel 05/17/2022 05/17/2021, 11/02/2020 Influenza Vaccine (Season Ended) 2025 Pneumococcal vaccine 65+ Completed 10/23/2015, 12/2014 Zoster Vaccine Completed 01/29/2019, 06/12, 10/21/2012 Procedures Procedure Name Priority Date/Time Associated Diagnosis Comments XR SHOULDER LEFT 2 OR MORE VIEWS Schedule Routine, Read Routine (OP Routine) 05/27/2024 9:24 AM SENIOR DESIGN ENGINEER Acute shoulder pain, unspecified laterality MRI TRANSFER OF OUTSIDE FILMS Routine 05/24/2024 12:00 AM SENIOR DESIGN ENGINEER from Last 3 Months Results * XR Shoulder Left 2 or More Views (05/27/2024 9:24 AM SENIOR DESIGN ENGINEER) Anatomical Region Laterality Modality Upper Extremities, Shoulder Left Digi almas Radiography Narrative 05/27/2024 2:49 PM SENIOR DESIGN ENGINEER X-rays of the left shoulder are viewed and interpreted in clinic today. These demonstrate no fracture subluxation or osseous lesions. Rotator cuff arthropathy changes noted with superior elevation of the humeral head, osteophyte formation, and subchondral sclerosis. Degenerative changes appreciated within the acromioclavicular joint with enlargement of the distal clavicle and subacromial spur. Ila HOPSON IMG XR PROCEDURES Final Result * MRI Outside Reference (05/24/2024 12:00 AM SENIOR DESIGN ENGINEER) Narrative [facility]_PACS[facility] - 05/27/2024 9:28 AM SENIOR DESIGN ENGINEER This order has been auto-finalized and does not contain a result. us Not In File Miscellaneous IMG MRI PROCEDURES Fin al Result [facility]_PACS[facility] from Last 3 Months Insurance UHC MEDICARE ADVANTAGE [facility] MEDIC[facility] Address: [facility] [address] [place] [address] [facility] MEDICARE [id number] [facility] MEDICARE Care Teams Straw Baler Relationship Specialty Start Date End Date Johnnie Mcdonough MD [address] [place] [address] PCP - General Internal Medicine 04/29/17
--- OUTSIDE RECORDS SUMMARY | 2024-08-21 07:36 | XMS_ITS | Encounter Summary ---
Author Organization [facility] Address [address] [place] [address] Care Team Providers Care Ict Sales Representative Name Role Phone Johnnie Mcdonough MD Primary Care Provider [phone] Meño Vargas MD Unavailable [phone] Donald Pantoja MD Unavailable [phone] Encounter Details Date Type Department Care Team (Late st Contact Info) Description 07/30/2021 Abstract [facility] [address] [place] [address] Meño Vargas MD [address] [place] [address] Social History Tobacco Use Types Packs/Day Years [...] Description 09/28/2024 2:00 PM CDT Office Visit [facility] [place] [phone] Donald Pantoja MD [address] [address] documented as of this encounter Procedures Procedure Name Priority Date/Time Associated Diagnosis Comments CMP (ABSTRACTED LAB) Routine 05/17/2021 HEMOGLOBIN, GLYCOSYLATED Routine 05/17/2021 LIPID PANEL Routine 05/17/2021 CK (CPK) Routine 05/17/2021 documented in this encounter Results * HEMOGLOBIN, GLYCOSYLATED (05/17/2021) HGB A1C 6.0 <5.7 % 05/17/2021 Result [facility] [place] Johnnie Mcdonough MD LABORATORY Final Result * LIPID PANEL (05/17/2021) CHOLESTEROL 175 0 - 200 HDL 55 40 - 60 TRIGLYCERIDES 73 0 - 150 LDL (CALCULATED) 105 <130 05/17/2021 Result Bharti Mcdonough MD LABORATORY Final Result * CK (CPK) (05/17/2021) CPK 221 39 - 308 05/17/2021 Result [facility] [place] Johnnie Mcdonough MD LABORATORY Final Result * [...] on filedocumented in this encounter Care Teams Ict Sales Representative Relationship Specialty Start Date End Date Johnnie Mcdonough MD [address] [place] [address] PCP - General INTERNAL MEDICINE 12/10/19 Meño Vargas MD [address] [place] [phone] [place] Tube Pusher CARDIOVASCULAR DISEASE 12/10/19 07/01/24 Donald Pantoja MD [address] [facility] [address] [place] [address] Physician INTERVENTIONAL CARDIOLOGY 07/16/24 documented as of this encounter
--- OUTSIDE RECORDS SUMMARY | 2024-08-21 07:36 | XMS_ITS | Encounter Summary ---
Author Organization [facility] Address [address] [place] [address] Care Team Providers Care Grease Man Name Role Phone Johnnie Mcdonough MD Primary Care Provider [phone] Meño Vargas MD Unavailable [phone] Donald Pantoja MD Unavailable [phone] Encounter Details Date Type Department Care Team (Late st Contact Info) Description 11/07/2020 Abstract [facility] [address] [place] [phone] Meño Vargas MD [address] [place] [address] Social History Tobacco Use Types [...] Description 09/28/2024 2:00 PM CDT Office Visit [facility] [place] [address] Donald Pantoja MD [address] [facility] [address] [place] [address] documented as of this encounter Procedures Procedure [...] on filedocumented in this encounter Care Teams Grease Man Relationship Specialty Start Date End Date Johnnie Mcdonough MD [address] [place] [address] PCP - General INTERNAL MEDICINE 12/10/19 Meño Vargas MD [address] [place] [phone] [place] Furrier Designer CARDIOVASCULAR DISEASE 12/10/19 07/01/24 Donald Pantoja MD [address] [facility] [address] [place] [address] Physician INTERVENTIONAL CARDIOLOGY 07/16/24 documented as of this encounter
--- OUTSIDE RECORDS SUMMARY | 2024-08-21 07:36 | XMS_ITS | Referral Summary ---
Author Organization [facility] Medical Office Building [address] [place] [address] Care Team Providers Care Ultrasonic Solderer Name Role Phone Johnnie Mcdonough MD Primary Care Provider Encounters Date Type Department Care Team Description 08/10/2024 Telephone [facility] Orthopedics and Sports Medicine [address] [place] [address] [place] [phone] Froy Bronson MD 06/22/2024 Orders Only 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 Orthopedic and Sports Medicine [address] [place] [phone] Froy Bronson MD Left rotator cuff tear arthropathy (Primary Dx); Axillary nerve palsy 05/27/2024 9:20 AM QUARTER SEAMER Ancillary Procedure [facility] Imaging at [address] [phone] Acute shoulder pain, unspecified laterality 05/27/2024 9:30 AM QUARTER SEAMER Office Visit [facility] Orthopedic and Sports Medicine [address] [place] [phone] Ila Christy PA Pseudoparalysis due to generalized [...] 06/04/2017 Assessment & Plan (06/04/2017 10:46 AM QUARTER SEAMER): With symptoms of constant need to clear [...] on file Legal Sex Male 11:16 AM QUARTER SEAMER Gender Identity Male 12/27/2020 9:51 AM CDT Sexual Orientation Straight 12/27/2020 9: 51 AM CDT Last Filed Vital Signs Vital Sign Reading Time Taken Comments Blood Pressure 154/79 06/18/2024 9:48 AM QUARTER SEAMER Pulse 83 06/18/2024 9:48 AM QUARTER SEAMER Temperature - - Respiratory Rate 16 01/18/2021 2:03 PM CDT Oxygen Saturation 97% 09/04/2017 9:32 AM CDT Inhaled Oxygen Concentration - - Weight 104.8 kg (231 lb 1.6 oz) 06/18/2024 9:48 AM QUARTER SEAMER Height 182.9 cm (6') 06/18/2024 9:48 AM QUARTER SEAMER Body Mass Index 31.34 06/18/2024 9:48 AM QUARTER SEAMER Plan of Treatment Not on file Procedures Procedure Name Priority Date/Time Associated Diagnosis Comments XR SHOULDER LEFT 2 OR MORE VIEWS Schedule Routine, Read Routine (OP Routine) 05/27/2024 9:24 AM QUARTER SEAMER Acute shoulder pain, unspecified laterality MRI TRANSFER OF OUTSIDE FILMS Routine 05/24/2024 12:00 AM QUARTER SEAMER from Last 3 Months Results * XR Shoulder Left 2 or More Views (05/27/2024 9:24 AM QUARTER SEAMER) Anatomical Region Laterality Modality Upper Extremities, Shoulder Left Digi almas Radiography Narrative 05/27/2024 2:49 PM QUARTER SEAMER X-rays of the left shoulder are viewed [...] * MRI Outside Reference (05/24/2024 12:00 AM QUARTER SEAMER) Narrative [facility] - 05/27/2024 9:28 AM QUARTER SEAMER This order has been auto-finalized and does not contain a result. us Not In File Miscellaneous IMG MRI PROCEDURES Fin al Result Performing Organization Address City/State/[facility] Co de Phone Number [facility] from Last 3 Months Insurance [facility] MEDICARE ADVANT[facility] MEDICARE Address: [facility] [address] [place] [address] [facility] MEDICARE [id number] AETNA MEDICARE Care Teams Ultrasonic Solderer Relationship Specialty Start Date End Date Johnnie Mcdonough MD [address] [place] [address] PCP - General Internal Medicine 04/29/17
--- OUTSIDE RECORDS SUMMARY | 2024-08-21 07:36 | XMS_ITS | Encounter Summary ---
Author Organization [facility] Address [address] [place] [address] Care Team Providers Care Aerologist Name Role Phone Johnnie Mcdonough MD Primary Care Provider [phone] Meño Vargas MD Unavailable [phone] Donald Pantoja MD Unavailable [phone] Encounter Details Date Type Department Care Team (Late Contact Info) Description 01/13/2020 Prep for Procedure [facility] Surgical [address] [place], [place] [phone] Dewayne Melo MD [address] [place] [address] Social History Tobacco Use Types [...] Description 09/28/2024 2:00 PM CDT Office Visit [facility] [place] [phone] Donald Pantoja MD [address] [facility] [address] [address] documented as of this encounter Visit Diagnoses Not on filedocumented in this encounter Additional Health Concerns Infection Onset Date Last Indicated Resolved Time COVID-19 Rule Out 01/15/2020 01/15/2020 01/17/2020 12:26 PM CDT documented as of this encounter Care Teams Aerologist Relationship Specialty Start Date End Date Johnnie Mcdonough MD [address] [place] [address] PCP - General INTERNAL MEDICINE 12/10/19 Meño Vargsa MD [address] [place] [address] [place] [address] Superintendent CARDIOVASCULAR DISEASE 12/10/19 07/01/24 Donald Pantoja MD [address] [facility] [address] [place] [address] Physician INTERVENTIONAL CARDIOLOGY 07/16/24 documented as of this encounter
--- OUTSIDE RECORDS SUMMARY | 2024-08-21 07:36 | XMS_ITS | CONTINUITY OF CARE DOCUMENT ---
Author Name ortiz alcantar Address Unknown Organization [facility] Address [address] [facility] [address] [place] [address] Phone [phone] Care Team Providers Care Battery Container Finishing Hand Name Role Phone Lavon HANEY, Devon Unavailable IMER DE LA ROSA MD Unavailable [phone] INSURANCE PROVIDERS Payer name Policy type / Coverage type [place] red alliance party ID [employer] OPEN ACCESS Other [id number] [place] MEDICARE Medicare [id number]
--- OUTSIDE RECORDS SUMMARY | 2024-08-21 07:36 | XMS_ITS | Clinical Summary ---
Author Organization [facility] Address [address] [place] [address] Care Team Providers Care Electric Switch Repairer Name Role Phone Johnnie Mcdonough MD Primary Care Provider [phone] Donald Pantoja MD Unavailable [phone] Allergies Active Allergy Reactions Criticality Noted Date [...] artery bypass graft) 02/18/20 Paroxysmal atrial fibrillation ([facility]) 02/18/2020 Coronary artery disease 01/18/2020 Aspirin allergy 01/13/2020 Essential hypertension 12/25/2019 Hyperlipidemia Diabetes ([facility]) Cancer ([facility]) Arthritis Encounters Date Type Department Care Team Description 07/02/2024 Telephone [facility] [address] [place] [phone] Kurtis Rodríguez MD Reschedule from Last 3 [...] Description 09/28/2024 2:00 PM CDT Office Visit [facility] [address] [place] [phone] Donald Pantoja MD [address] [place] [address] Health Maintenance Due Date Last Done Comments [...] Vaccine ( season) 2024 02/23/2021, 06/05/2020, 05/09/2020 DTaP, Tdap and Td Vaccines (2 - [...] (03/24/2020) us Documents Scanned SCANNING Final Result [facility] from Last 3 Months or Most Recently Relevant to Health Maintenance Insurance AETNA Advance Directives * Full Code (Latest Code Status on File) Date Activated Date Inactivated Comments 01/18/2020 5:21 PM 01/23/2020 2:02 PM * Full Code Date Activated Date Inactivated Comments 01/13/2020 4:46 PM 01/13/2020 7:49 PM Care Teams Electric Switch Repairer Relationship Specialty Start Date End Date Johnnie Mcdonough MD [address] [place] [address] PCP - General INTERNAL MEDICINE 12/10/19 Donald Pantoja MD [address] [address] Physician INTERVENTIONAL CARDIOLOGY 07/16/24
--- OUTSIDE RECORDS SUMMARY | 2024-08-21 07:36 | XMS_ITS ---
Author Organization [facility] Medical Office Building [address] [place] [address] Care Team Providers Care Bug Trimmer Name Role Phone Johnnie Mcdonough MD Primary [...] 06/04/2017 Assessment & Plan (06/04/2017 10:46 AM PATIENT CARE SPECIALIST): With symptoms of constant need to clear [...]
--- OUTSIDE RECORDS SUMMARY | 2024-08-21 07:36 | XMS_ITS | Encounter Summary ---
Author Organization [facility] Address [address] [place] [address] Care Team Providers Care Eyeletter Name Role Phone Johnnie Mcdonough MD Primary Care Provider [phone] Meño Vargas MD Unavailable [phone] Donald Pantoja MD Unavailable [phone] Encounter Details Date Type Department Care Team (Late st Contact Info) Description 07/20/2020 Abstract [facility] [address] [place] [phone] Meño Vargas MD [address] [place] [address] Social History Tobacco Use Types [...] Upcoming Encounters Date Type Department Care Team ([facility] st Contact Info) Description 09/28/2024 2:00 PM CDT Office Visit [facility] [place] [address] Donald Pantoja MD [address] [facility] [address] [address] documented as of this encounter Procedures Procedure [...] on filedocumented in this encounter Care Teams Eyeletter Relationship Specialty Start Date End Date Johnnie Mcdonough MD [address] [place] [address] PCP - General INTERNAL MEDICINE 12/10/19 Meño Vargas MD [address] [place] [address] [place] Assistant Business Manager CARDIOVASCULAR DISEASE 12/10/19 07/01/24 Donald Pantoja MD [address] [facility] [address] [place] [address] Physician INTERVENTIONAL CARDIOLOGY 07/16/24 documented as of this encounter
--- OUTSIDE RECORDS SUMMARY | 2024-08-21 07:36 | XMS_ITS | Encounter Summary ---
Author Organization [facility] Address [address] [place] [address] Care Team Providers Care Grain Farmer Name Role Phone Johnnie Mcdonough MD Primary Care Provider Encounter Details Date Type Department Care Team (Late st Contact Info) Description 01/17/2021 Telephone [facility] [address] [place], [place] [phone] Mateus Bolden, RT Social History Tobacco Use Types Packs/Day Years Used Date Smoking Tobacco: Never Smokeless Tobacco: Never Alcohol Use Standard Drinks/Week Comments Yes 0 (1 standard drink = 0.6 oz pur e alcohol) 3 -4 beers per week Sex and Gender Information Value Date Recorded Sex Assigned at Not on file Legal Sex Male 11:16 AM HEAD OPERATOR [place] Gender Identity Male 12/27/2020 9:51 AM CDT Sexual Orientation Straight 12/27/2020 9: 51 AM CDT documented as of this encounter Plan of Treatment Not on file documented as of this encounter Visit Diagnoses Not on filedocumented in this encounter Care Teams Grain Farmer Relationship Specialty Start Date End Date Johnnie Mcdonough MD [address] [place] [address] PCP - General Internal Medicine 04/29/17 documented as of this encounter
--- OUTSIDE RECORDS SUMMARY | 2024-08-21 07:36 | XMS_ITS | Encounter Summary ---
Author Organization [facility] Address [address] [place] [address] Care Team Providers Care Nuclear Medical Tech Name Role Phone Johnnie Mcdonough MD Primary Care Provider [phone] Meño Vargas MD Unavailable [phone] Donald Pantoja MD Unavailable [phone] Encounter Details Date Type Department Care Team (Late Contact Info) Description 12/30/2019 Abstract [facility] [address] [place] [phone] Abstract, Doc [facility] Social History Tobacco Use [...] Description 09/28/2024 2:00 PM CDT Office Visit [facility] [place] [address] Donald Pantoja MD [address] [facility] [address] [place] [address] documented as of this encounter Procedures Procedure [...] documented as of this encounter Care Teams Nuclear Medical Tech Relationship Specialty Start Date End Date Johnnie Mcdonough MD [address] [place] [address] PCP - General INTERNAL MEDICINE 12/10/19 Meño Vargas MD [address] [place] [phone] [place] Gmat Tutor CARDIOVASCULAR DISEASE 12/10/19 07/01/24 Donald Pantoja MD [address] [place] [address] [address] [place] [address] Physician INTERVENTIONAL CARDIOLOGY 07/16/24 documented as of this encounter
== END 2024-08-21 07:35 | disposition home or self-care (01) ==
LOC: CHSIMG 07:34
PROVIDERS: PCP Internal Medicine; Visit Provider Internal Medicine
DX: G58.8 Other specified mononeuropathies (principal); M43.02 Spondylolysis, cervical region; M48.02 Spinal stenosis, cervical region
CPT/HCPCS: 72141

== ENCOUNTER 2024-09-10 12:42 | Outpatient (CLI) | payer MEDICARE, SELFPAY ==
--- NOTE | ~2024-09-10 | CT_ITS ---
CT cervical spine wo con Ordering provider: Richard Gonzalez, History: . Cervical Myelopathy, unable to raise Lt. arm x3 weeks . Comparison: None. Technique: CT of the cervical spine was performed without contrast. Sagittal and coronal reformatted images were also obtained and reviewed. Automated exposure control and iterative reconstruction mariya hnique were employed. The dose-length product was 423.34 mGy-cm. FINDINGS: VERTEBRAE: No subluxation or acute fracture. The occipital condyles are intact. Degenerative changes of the spine. DISC SPACES: Narrowing of the disc C4-C5, C5-C6 and C6-C7. Multilevel facet joint disease. Multilevel uncovertebral joint osteoarthritic changes. Narrowing of the left intervertebral foramen at the level of C2-C3. Bilateral narrowing of the foramina at the level of C3-C4, C4-5, C5-C6 and C6-C7 with nerve root comp ression. Spinal canal stenosis at the level of C4-C5, C5-C6 and C6-C7. PARASPINOUS SOFT TISSUES: Normal. IMPRESSION: No acute osseous abnormality cervical spine. Multilevel degenerative disc disease, spinal canal stenosis and intervertebral foraminal narrowing. M RI is better for evaluation. Reviewed, dictated and finalized at location A. IMPRESSION: No acute osseous abnormality cervical spine. Multilevel degenerative disc disease, spinal canal stenosis and intervertebral foraminal narrowing. MRI is better for evaluation.
--- OUTSIDE RECORDS SUMMARY | 2024-09-11 13:25 | XMS_ITS | CONTINUITY OF CARE DOCUMENT ---
Author Name ortiz alcantar Address Unknown Organization [facility] Address [address] [facility] [address] [place] [address] Phone [phone] Care Team Providers Care Home Health Billing Specialist Name Role Phone Lavon HANEY, Devon Unavailable IMER DE LA ROSA MD Unavailable [phone] INSURANCE PROVIDERS Payer name Policy type / Coverage type [place] red constitution party ID [employer] OPEN ACCESS Other [id number] [place] MEDICARE Medicare [id number]
--- OUTSIDE RECORDS SUMMARY | 2024-09-11 13:25 | XMS_ITS | Encounter Summary ---
Author Organization [facility] Address [address] [place] [address] Care Team Providers Care Territory Account Representative Name Role Phone Johnnie Mcdonough MD Primary Care Provider [phone] Meño Vargas MD Unavailable [phone] Donald Pantoja MD Unavailable [phone] Encounter Details Date Type Department Care Team (Late st Contact Info) Description 11/07/2020 Abstract [facility] [address] [place] [phone] Meño Vargas MD [address] [place] [address] Social History Tobacco Use Types [...] Author Status No 01/19/2020 2:15 PM CDT Amla Hager RN Active documented in this encounter Plan of Treatment Upcoming Encounters Date Type Department Care Team (Late st Contact Info) Description 09/28/2024 2:00 PM CDT Office Visit [facility] [place] [address] Donald Pantoja MD [address] [facility] [address] [place] [address] documented as of this encounter Procedures Procedure [...] on filedocumented in this encounter Care Teams Territory Account Representative Relationship Specialty Start Date End Date Johnnie Mcdonough MD [address] [place] [address] PCP - General INTERNAL MEDICINE 12/10/19 Meño Vargas MD [address] [place] [phone] [facility] Coordinator CARDIOVASCULAR DISEASE 12/10/19 07/01/24 Donald Pantoja MD [address] [facility] [address] [place] [address] Physician INTERVENTIONAL CARDIOLOGY 07/16/24 documented as of this encounter
--- OUTSIDE RECORDS SUMMARY | 2024-09-11 13:25 | XMS_ITS ---
Author Organization [facility] Medical Office Building [address] [place] [address] Care Team Providers Care Youth Support Worker Name Role Phone Johnnie Mcdonough MD Primary Care Provider [phone] Active Problems Problem Noted Date Diagnosed Date Axillary nerve palsy 06/18/2024 Left rotator cuff tear arthropathy 06/18/2024 Arthritis 01/01/2021 Cancer 01/01/2021 Diabetes 01/01/2021 Hyperlipidemia 01/01/2021 Paroxysmal atrial fibrillation 02/18/2020 S/P CABG (coronary artery bypass graft) 02/18/20 20 Coronary artery disease 01/18/2020 Aspirin allergy 01/13/2020 Essential hypertension 12/25/2019 Oropharyngeal dysphagia 06/04/2017 Assessment & Plan (06/04/2017 10:46 AM SUPERINTENDENT MARINE OIL 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
--- OUTSIDE RECORDS SUMMARY | 2024-09-11 13:25 | XMS_ITS | Encounter Summary ---
Author Organization [facility] Address [address] [place] [address] Care Team Providers Care Window Systems Administrator Name Role Phone Johnnie Mcdonough MD Primary Care Provider [phone] Meño Vargas MD Unavailable [phone] Donald Pantoja MD Unavailable [phone] Encounter Details Date Type Department Care Team (Late Contact Info) Description 01/13/[address] [facility] [address] [place], [place] [phone] Dewayne Melo MD [address] [place] [address] Social History Tobacco Use Types [...] Description 09/28/2024 2:00 PM CDT Office Visit [facility] [place] [phone] Donald Pantoja MD [address] [facility] [address] [address] documented as of this encounter Visit Diagnoses Not on filedocumented in this encounter Additional Health Concerns Infection Onset Date Last Indicated Resolved Time COVID-19 Rule Out 01/15/2020 01/15/2020 01/17/2020 12:26 PM CDT documented as of this encounter Care Teams Window Systems Administrator Relationship Specialty Start Date End Date Johnnie Mcdonough MD [address] [place] [address] PCP - General INTERNAL MEDICINE 12/10/19 Meño Vargas MD [address] [place] [address] [place] Technical Account Manager CARDIOVASCULAR DISEASE 12/10/19 07/01/24 Donald Pantoja MD [address] [facility] [address] [place] [address] Physician INTERVENTIONAL CARDIOLOGY 07/16/24 documented as of this encounter
--- OUTSIDE RECORDS SUMMARY | 2024-09-11 13:25 | XMS_ITS | Referral Summary ---
Author Organization [facility] Medical Office Building [address] [place] [address] Care Team Providers Care Electric Power Machine Operator Name Role Phone Johnnie Mcdonough MD Primary Care Provider [phone] Encounters Date Type Department Care Team Description 09/03/2024 11:49 AM CDT - 09/03/2024 11:59 PM CDT Hospital Encounter [id number] [address] [place] [phone] Cervical pain (neck) Discharge Disposition: Discharge to home or self care 09/03/2024 1:00 PM CDT Office Visit [facility] Neurosurgery [address] [place] [address] Office [facility] [address] [place] [phone] Gildardo Hanna PA Cervical myelopathy (HCC) 09/01/2024 Orders Only [facility] Neurosurgery [address] [place] [address] Office [facility] [address] [place] [phone] Gildardo Hanna PA Cervical pain (neck) (Primary Dx) 08/30/2024 9:56 AM CDT - 08/30/2024 11:59 PM CDT Hospital Encounter [facility] [address] [place] [address] Discharge Disposition: Discharge to home or self care 08/27/2024 Telephone [facility] Scheduling [address] [place] [address] Mary Borja 08/10/2024 Telephone [facility] Orthopedics and Sports Medicine [address] [facility] [address] [place] [address] Froy Bronson MD 06/22/2024 Orders Only [facility] Orthopedic and Sports Medicine [address] [place] [phone] Froy Bronson MD Axillary nerve palsy (Primary Dx); 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 06/18/2024 Orders Only [facility] Orthopedic and Sports Medicine [address] [place] [phone] Froy Bronson MD Left rotator cuff tear arthropathy (Primary Dx); Axillary nerve palsy; 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 06/18/2024 Orders Only [facility] Orthopedic and Sports Medicine [address] [place] [phone] Froy Bronson MD Axillary nerve palsy (Primary Dx); 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 06/18/2024 9:45 AM QUANTITATIVE CONSULTANT Office Visit [facility] Orthopedic and Sports Medicine [address] [place] [phone] Froy Bronson MD Left rotator cuff tear arthropathy (Primary Dx); Axillary nerve palsy from Last 3 Months Allergies Active Allergy [...] 06/04/2017 Assessment & Plan (06/04/2017 10:46 AM QUANTITATIVE CONSULTANT): With symptoms of constant need to clear [...] No Alcohol Use Standard Drinks/Week Comments Yes 0 (1 standard drink = 0.6 oz pur e alcohol) 3 -4 beers per week Sex and Gender Information Value Date Recorded Sex Assigned at Not on file Legal Sex Male 11:16 AM QUANTITATIVE CONSULTANT Gender Identity Male 12/27/2020 9:51 AM CDT Sexual Orientation Straight 12/27/2020 9: 51 AM CDT Last Filed Vital Signs Vital Sign Reading Time Taken Comments Blood Pressure 154/79 06/18/2024 9:48 AM QUANTITATIVE CONSULTANT Pulse 83 06/18/2024 9:48 AM QUANTITATIVE CONSULTANT Temperature - - Respiratory Rate 16 01/18/2021 2:03 PM CDT Oxygen Saturation 97% 09/04/2017 9:32 AM CDT Inhaled Oxygen Concentration - - Weight 102.1 kg (225 lb) 09/03/2024 12:09 PM CDT Height 185.4 cm (6' 1 ) 09/03/2024 12:09 PM CDT Body Mass Index 29.69 09/03/2024 12:09 PM CDT Plan of Treatment Not on file Procedures Procedure Name Priority Date/Time Associated Diagnosis Comments XR SPINE CERVICAL W FLEXION AND EXTENSION 6 OR MORE VIEWS Schedule Routine, Read Routine (OP Routine) 09/03/2024 12:01 PM CDT Cervical pain (neck) NEURO MR OUTSIDE REFERENCE Routine 08/30/2024 9:56 AM CDT from Last 3 Months Results * XR Spine Cervical W Flexion And Extension 6 or More Views (09/03/2024 12:01 PM CDT) Anatomical Region Laterality Modality Spine N/A Computed Radiogr aphy 09/03/2024 12:4 7 PM CDT Impressions 09/03/2024 12:47 PM CDT 1. Unchanged multilevel cervical degenerative disc disease most pronounced and moderate to severe from C4-C7 with mild cervical kyphosis and mild listhesis. 2. Multilevel up to severe facet osteoarthritis and uncovertebral hypertrophy resulting in bilateral osseous neuroforaminal stenosis. Electronically signed by: Manuel Perez M.D. Narrative 09/03/2024 12:47 PM CDT EXAMINATION: XR SPINE CERVICAL W FLEXION AND EXTENSION 6 OR MORE VIEWS HISTORY: Cervical Pain FINDINGS: CT examination of the cervical spine is read with comparison to cervical spine MRI 08/21/2024. Unchanged mild anterolisthesis of C3 on C4 which does not change on flexion or extension. Mild cervical kyphosis. No prevertebral soft tissue swelling. Vertebral body heights are maintained. Unchanged multilevel degenerative disc disease most pronounced and moderate to severe from C4-C7. Multilevel up to severe facet osteoarthritis and uncovertebral hypertrophy resulting in bilateral osseous neuroforaminal stenosis. Bilateral carotid vascular calcifications. Partially imaged median sternotomy changes. Procedure Note Nico Perez, Manuel Amaral MD - 09/03/2024 EXAMINATION: XR SPINE CERVICAL W FLEXION AND EXTENSION 6 OR MORE VIEWS HISTORY: Cervical Pain FINDINGS: CT examination of the cervical spine is read with comparison to cervical spine MRI 08/21/2024. Unchanged mild anterolisthesis of C3 on C4 which does not change on flexion or extension. Mild cervical kyphosis. No prevertebral soft tissue swelling. Vertebral body heights are maintained. Unchanged multilevel degenerative disc disease most pronounced and moderate to severe from C4-C7. Multilevel up to severe facet osteoarthritis and uncovertebral hypertrophy resulting in bilateral osseous neuroforaminal stenosis. Bilateral carotid vascular calcifications. Partially imaged median sternotomy changes. IMPRESSION: 1. Unchanged multilevel cervical degenerative disc disease most pronounced and moderate to severe from C4-C7 with mild cervical kyphosis and mild listhesis. 2. Multilevel up to severe facet osteoarthritis and uncovertebral hypertrophy resulting in bilateral osseous neuroforaminal stenosis. Electronically signed by: Manuel Perez M.D. us Gildardo HOPSON IMG XR PROCEDURES Brooke l Result * Neuro MR Outside Reference (08/30/2024 9:56 AM CDT) Impressions [facility] - 08/30/2024 9:56 AM CDT These images are for Reference purposes only and have not been reviewed by [facility]. There will be no report generated by a [facility] Radiologist. Narrative [facility] - 08/30/2024 9:56 AM CDT EXAMINATION: Images For Reference Purposes Only us Richard Gonzalez MD IMG MRI PROCEDURES Final Result [facility] from Last 3 Months Insurance [facility] MEDICARE [id number] T MEDICARE [facility] MEDICARE Care Teams Electric Power Machine Operator Relationship Specialty Start Date End Date Johnnie Mcdonough MD [address] [place] [address] PCP - General Internal Medicine 04/29/17
--- OUTSIDE RECORDS SUMMARY | 2024-09-11 13:25 | XMS_ITS | Clinical Summary ---
Author Organization [facility] Medical Office Building [address] [place] [address] Care Team Providers Care Organ Builder Name Role Phone Johnnie Mcdonough MD Primary Care Provider [phone] Allergies Active Allergy Reactions Criticality Noted Date [...] 06/04/2017 Assessment & Plan (06/04/2017 10:46 AM CHINESE MEDICINE PRACTITIONER): With symptoms of constant need to clear [...] Date Type Department Care Team Description 09/03/2024 1:00 PM CDT Office Visit [facility] Neurosurgery [address] [place] [address] Medical Office Building 4 [address] [place] [address] Gildardo Hanna PA Cervical myelopathy (HCC) 09/03/2024 11:49 AM CDT - 09/03/2024 11:59 PM CDT Hospital Encounter [facility] [address] [place] [address] [address] [place] [address] Cervical pain (neck) Discharge Disposition: Discharge to home or self care 09/01/2024 Orders Only [facility] Neurosurgery [address] [place] [address] Medical Office Building 4 [address] [place] [address] Gildardo Hanna PA Cervical pain (neck) (Primary Dx) 08/30/2024 9:56 AM CDT - 08/30/2024 11:59 PM CDT Hospital Encounter [facility] [address] [place] [address] Discharge Disposition: Discharge to home or self care 08/27/2024 Telephone [facility] Scheduling [address] [place] [address] Mary Borja 08/10/2024 Telephone [facility] Orthopedics and Sports Medicine [address] [facility] [address] [place] [address] Froy Bronson MD 06/22/2024 Orders Only [facility] Orthopedic and Sports Medicine [address] [place] [phone] Froy Bronson MD Axillary nerve palsy (Primary Dx); 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 06/18/2024 9:45 AM CHINESE MEDICINE PRACTITIONER Office Visit [facility] Orthopedic and Sports Medicine [address] [place] [phone] Froy Bronson MD Left rotator cuff tear arthropathy (Primary Dx); Axillary nerve palsy 06/18/2024 Orders Only [facility] Orthopedic and Sports Medicine [address] [place] [phone] Froy Bronson MD Left rotator cuff tear arthropathy (Primary Dx); Axillary nerve palsy; 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 06/18/2024 Orders Only [facility] Orthopedic and Sports Medicine [address] [place] [phone] Froy Bronson MD Axillary nerve palsy (Primary Dx); 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 from Last 3 Months Surgical History Surgery Date Site/Laterality Comments FLUORO GUIDED INJECTION SHOULDER LEFT 07/15/2019 Lef t FLUORO GUIDED INJECTION SHOULDER LEFT 01/18/2021 Lef t Medical History Medical History Date Comments Hypertension Lymphosarcoma (HCC) trated with surgery only 1978 Diabetes (HCC) 01/01/2021 Family History Medical History [...] on file Legal Sex Male 11:16 AM CHINESE MEDICINE PRACTITIONER Gender Identity Male 12/27/2020 9:51 AM CDT Sexual Orientation Straight 12/27/2020 9: 51 AM CDT Obstetrics History Last Filed Vital Signs Vital Sign Reading Time Taken Comments Blood Pressure 154/79 06/18/2024 9:48 AM CHINESE MEDICINE PRACTITIONER Pulse 83 06/18/2024 9:48 AM CHINESE MEDICINE PRACTITIONER Temperature - - Respiratory Rate 16 01/18/2021 2:03 PM CDT Oxygen Saturation 97% 09/04/2017 9:32 AM CDT Inhaled Oxygen Concentration - - Weight 102.1 kg (225 lb) 09/03/2024 12:09 PM CDT Height 185.4 cm (6' 1 ) 09/03/2024 12:09 PM CDT Body Mass Index 29.69 09/03/2024 12:09 PM CDT Plan of Treatment Health Maintenance Due Date [...] Partially imaged median sternotomy changes. Procedure Note Manuel Preciado MD - 09/03/2024 EXAMINATION: XR SPINE CERVICAL [...] Outside Reference (08/30/2024 9:56 AM CDT) Impressions [facility] - 08/30/2024 9:56 AM CDT These images are for Reference purposes only and have not been reviewed by [facility] Radiology. There will be no report generated by a [facility] Radiologist. Narrative [facility] - 08/30/2024 9:56 AM CDT EXAMINATION: Images For Reference Purposes Only us Richard Gonzalez MD IMG MRI PROCEDURES Final Result [facility] from Last 3 Months Insurance [facility] MEDICARE [id number] AET MEDICARE [facility] MEDICARE Care Teams Organ Builder Relationship Specialty Start Date End Date Johnnie Mcdonough MD [address] [place], [place] [id number] PCP - General Internal Medicine 04/29/17
--- OUTSIDE RECORDS SUMMARY | 2024-09-11 13:25 | XMS_ITS | Clinical Summary ---
Author Organization [facility] Address [address] [place] [address] Care Team Providers Care Viscosity Tester Name Role Phone Johnnie Mcdonough MD Primary Care Provider [phone] Donald Pantoja MD Unavailable [phone] Allergies Active Allergy Reactions Criticality Noted Date [...] artery bypass graft) 02/18/20 Paroxysmal atrial fibrillation ([facility]) 02/18/2020 Coronary artery disease 01/18/2020 Aspirin allergy 01/13/2020 Essential hypertension 12/25/2019 Hyperlipidemia Diabetes ([facility]) Cancer ([facility]) Arthritis Encounters Date Type Department Care Team Description 07/02/2024 Telephone [facility] [address] [place] [phone] Kurtis Rodríguez MD Reschedule from Last 3 [...] Description 09/28/2024 2:00 PM CDT Office Visit [facility] [address] [place] [phone] Donald Pantoja MD [address] [place] [address] Health Maintenance Due Date Last Done Comments [...] Td or Tdap) 06/25/2029 06/25/2019 Pneumococcal Vaccine: 50+ Years Completed 10/23/2015, 05/19/2014 Zoster Vaccines Completed [...] (03/24/2020) us Documents Scanned SCANNING Final Result [facility] ON[facility] from Last 3 Months or Most Recently Relevant to Health Maintenance Insurance [employer] Advance Directives * Full Code (Latest Code Status on File) Date Activated Date Inactivated Comments 01/18/2020 5:21 PM 01/23/2020 2:02 PM * Full Code Date Activated Date Inactivated Comments 01/13/2020 4:46 PM 01/13/2020 7:49 PM Care Teams Viscosity Tester Relationship Specialty Start Date End Date Johnnie Mcdonough MD [address] [place] [address] PCP - General INTERNAL MEDICINE 12/10/19 Donald Pantoja MD [address] [address] Physician INTERVENTIONAL CARDIOLOGY 07/16/24
--- OUTSIDE RECORDS SUMMARY | 2024-09-11 13:25 | XMS_ITS | Encounter Summary ---
Author Organization [facility] Address [address] [place] [address] Care Team Providers Care Wrapper Sizer Name Role Phone Johnnie Mcdonough MD Primary Care Provider [phone] Encounter Details Date Type Department Care Team (Late st Contact Info) Description 01/17/2021 Telephone [facility] ([facility]) [address] [place] [address] Mateus Bolden, RT Social History Tobacco Use Types Packs/Day Years Used Date Smoking Tobacco: Never Smokeless Tobacco: Never Alcohol Use Standard Drinks/Week Comments Yes 0 (1 standard drink = 0.6 oz pur e alcohol) 3 -4 beers per week Sex and Gender Information Value Date Recorded Sex Assigned at Not on file 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
--- OUTSIDE RECORDS SUMMARY | 2024-09-11 13:25 | XMS_ITS | Encounter Summary ---
Author Organization [facility] Address [address] [place] [address] Care Team Providers Care Lab Instructor Name Role Phone Johnnie Mcdonough MD Primary Care Provider [phone] Meño Vargas MD Unavailable [phone] Donald Pantoja MD Unavailable [phone] Encounter Details Date Type Department Care Team (Late st Contact Info) Description 07/30/2021 Abstract [facility] [address] [place] [address] Meño Vargas MD [address] [place] [address] Social History Tobacco Use Types [...] Description 09/28/2024 2:00 PM CDT Office Visit [facility] [place] [address] Donald Pantoja MD [address] [address] documented as of this encounter Procedures Procedure Name Priority Date/Time Associated Diagnosis Comments CMP (ABSTRACTED LAB) Routine 05/17/2021 HEMOGLOBIN, GLYCOSYLATED Routine 05/17/2021 LIPID PANEL Routine 05/17/2021 CK (CPK) Routine 05/17/2021 documented in this encounter Results * HEMOGLOBIN, GLYCOSYLATED (05/17/2021) HGB A1C 6.0 <5.7 % 05/17/2021 Result [facility] us Johnnie Mcdonough MD LABORATORY Final Result * LIPID PANEL (05/17/2021) CHOLESTEROL 175 0 - 200 HDL 55 40 - 60 TRIGLYCERIDES 73 0 - 150 LDL (CALCULATED) 105 <130 05/17/2021 Result Bharti Mcdonough MD LABORATORY Final Result * CK (CPK) (05/17/2021) CPK 221 39 - 308 05/17/2021 Result [facility] us Johnnie Mcdonough MD LABORATORY Final Result [...] on filedocumented in this encounter Care Teams Lab Instructor Relationship Specialty Start Date End Date Johnnie Mcdonough MD [address] [place] [address] PCP - General INTERNAL MEDICINE 12/10/19 Meño Vargas MD [address] [place] [address] [place] Pepper Cutter CARDIOVASCULAR DISEASE 12/10/19 07/01/24 Donald Pantoja MD [address] [facility] [address] [place] [address] Physician INTERVENTIONAL CARDIOLOGY 07/16/24 documented as of this encounter
--- OUTSIDE RECORDS SUMMARY | 2024-09-11 13:25 | XMS_ITS | Encounter Summary ---
Author Organization [facility] Address [address] [place] [address] Care Team Providers Care Food Packer Name Role Phone Johnnie Mcdonough MD Primary Care Provider [phone] Meño Vargas MD Unavailable [phone] Donald Pantoja MD Unavailable [phone] Encounter Details Date Type Department Care Team (Late st Contact Info) Description 07/20/2020 Abstract [facility] [address] [place] [phone] Meño Vargas MD [address] [place] [address] Social History Tobacco Use Types [...] Upcoming Encounters Date Type Department Care Team ([facility] st Contact Info) Description 09/28/2024 2:00 PM CDT Office Visit [facility] [place] [address] Donald Pantoja MD [address] [facility] [address] [address] documented as of this encounter Procedures Procedure [...] on filedocumented in this encounter Care Teams Food Packer Relationship Specialty Start Date End Date Johnnie Mcdonough MD [address] [place] [address] PCP - General INTERNAL MEDICINE 12/10/19 Meño Vargas MD [address] [place] [address] [place] Market Development Director CARDIOVASCULAR DISEASE 12/10/19 07/01/24 Donald Pantoja MD [address] [facility] [address] [place] [address] Physician INTERVENTIONAL CARDIOLOGY 07/16/24 documented as of this encounter
--- OUTSIDE RECORDS SUMMARY | 2024-09-11 13:25 | XMS_ITS | Encounter Summary ---
Author Organization [facility] Address [address] [place] [address] Care Team Providers Care Guest Services Ambassador Name Role Phone Johnnie Mcdonough MD Primary Care Provider [phone] Meño Vargas MD Unavailable [phone] Donald Pantoja MD Unavailable [phone] Encounter Details Date Type Department Care Team (Late Contact Info) Description 12/30/2019 Abstract [facility] [address] [place] [phone] Abstract, Doc [facility] Social History Tobacco Use [...] Description 09/28/2024 2:00 PM CDT Office Visit [facility] [place] [address] Donald Pantoja MD [address] [facility] [address] [place] [address] documented as of this encounter Procedures Procedure [...] documented as of this encounter Care Teams Guest Services Ambassador Relationship Specialty Start Date End Date Johnnie Mcdonough MD [address] [place] [address] PCP - General INTERNAL MEDICINE 12/10/19 Meño Vargas MD [address] [place] [phone] [place] [employer] Sales Representative CARDIOVASCULAR DISEASE 12/10/19 07/01/24 Donald Pantoja MD [address] [place] [address] [address] [place] [address] Physician INTERVENTIONAL CARDIOLOGY 07/16/24 documented as of this encounter
== END 2024-09-10 12:43 | disposition home or self-care (01) ==
LOC: CHSIMG 12:45
PROVIDERS: PCP Internal Medicine; Visit Provider Neurological Surgery
DX: G95.9 Disease of spinal cord, unspecified (principal); M50.30 Other cervical disc degeneration, unspecified cervical region; M48.02 Spinal stenosis, cervical region
CPT/HCPCS: 72125

== ENCOUNTER 2025-01-24 09:05 | Outpatient (CLI) | payer MEDICARE, SELFPAY ==
[2025-01-24 09:26] LABS: Hematocrit 43.7 % (37.0-46.0); Hemoglobin 13.7 g/dL (12.4-15.3); Mean Corpuscular HGB Conc 31.4 g/dL (32-36); Mean Corpuscular Hemoglobin 28.0 pg (27.0-31.0); Mean Corpuscular Volume 89.4 fL (78.0-102.0); Platelet Count Result 264 K/mm3 (150-420); Red Blood Count 4.89 M/mm3 (4.70-6.10); White Blood Count 6.7 K/mm3 (4.8-10.8)
[2025-01-24 09:28] LABS: Add Urine Microscopic? NO; Appearance Urine Clear (Clear); Glucose Urine UA Negative (Negative); Leukocyte Esterase Ur Negative (Negative); Nitrate Urine Negative (Negative); Specific Grav Ur 1.025 (1.010-1.020)
[2025-01-24 09:41] LABS: Hemoglobin A1C 6.1 % (<5.7)
[2025-01-24 09:46] LABS: Alanine Aminotransferase 23 U/L (6-50); Albumin Level 4.3 g/dL (3.5-5.1); Alkaline Phosphatase 85 U/L (38-126); Anion Gap 11 mmol/L (4-12); Aspartate Amino Transferase 28 U/L (17-59); Bilirubin,Total 0.7 mg/dL (0.2-1.3); Blood Urea Nitrogen 14 mg/dL (9-20); Calcium 10.0 mg/dL (8.4-10.2); Carbon Dioxide 26 mmol/L (22-30); Chloride 105 mmol/L (98-107); Cholesterol 142 mg/dL (0-200); Creatine Kinase 115 U/L (55-170); Estimated Glomerular Filt Rate > 60; Glucose 117 mg/dL (65-110); HDL Direct 46 mg/dL; Osmolality Calculated 295 mOsm/kg (285-295); Potassium 4.4 mmol/L (3.4-5.0); Sodium 142 mmol/L (137-145); Total Protein 7.2 g/dL (6.3-8.2); Triglycerides 96 mg/dL (<150)
[2025-01-24 09:50] LABS: MALB Creatinine Ratio 5.0 mg/g (0-30)
--- OUTSIDE RECORDS SUMMARY | 2025-01-24 09:52 | XMS_ITS | Clinical Summary ---
Author Organization [facility] Medical Office Building [address] [place] [id number] Care Team Providers Care Electromechanical Technologist Name Role Phone Johnnie Mcdonough MD Primary Care Provider [phone] Allergies Active Allergy Reactions Criticality Noted Date Comments Aspirin Hives,Other (See comments),Edema High 06/04/2017 Edema in throat and hands Nitroglycerin Other (See comments) Low 11/05/2022 Vasovagal response Other Hives Medium 12/10/2019 Fresh strawberries Medications sertraline (ZOLOFT) 50 mg tablet Take 1 tablet (50 mg total) by mouth daily. 30 tablet 3 11/08/19 18 Active Additional Information Patient taking differently:50 mg oralDaily (early AM), Indications: Anxiety with Depression, Reported on 11/15/2024 DOXYCYCLINE HYCLATE 100 mg capsule Take 1 tablet/capsule (100 mg total) by mouth early childhood special educator before breakfast 06/01/19 20 Active amLODIPine (NORVASC) 5 mg tablet Take 1 tablet (5 mg total) by mouth early childhood special educator before breakfast 10/22/19 21 Active clopidogreL (PLAVIX) 75 mg tabletIndications:P eripheral Arterial Thromboembolism Prevention Take 1 tablet (75 mg total) by mouth early childhood special educator before breakfast 11/26/19 21 Active metoprolol XL (TOPROL-XL) 25 mg extended release tablet Take 1 tablet (25 mg total) by mouth early childhood special educator before breakfast 12/31/19 21 Active spironolactone (ALDACTONE) 25 mg tablet Take 1 tablet (25 mg total) by mouth early childhood special educator before breakfast Active metFORMIN XR (GLUCOPHAGE XR) 500 mg 24 hr tablet Take 1 tablet (500 mg total) by mouth 2 (two) times a day 12/31/19 21 Active atorvastatin (LIPITOR) 80 mg tablet Take 1 tablet (80 mg total) by mouth every evening 04/13/20 24 Active acetaminophen 500 mg capsule Take 2 capsules (1,000 mg total) by mouth every 6 (six) hours as needed for pain 11/19/19 25 Active polyethylene glycol (MIRALAX) 17 gram/dose bulk powderIndications:c onstipation Take 17 g by mouth daily 0 11/19/19 25 Active riluzole (RILUTEK) 50 mg tabletIndications:a myotrophic lateral sclerosis Take 1 tablet (50 mg total) by mouth every 12 (twelve) hours X6 weeks 90 tablet 11/19/19 25 Active cyclobenzaprine (FLEXERIL) 5 mg tabletIndications:M uscle Spasm Take 1 tablet (5 mg total) by mouth every 8 (eight) hours as needed for muscle spasms 90 tablet 12/11/19 25 Active senna-docusate (PERICOLACE) 8.6-50 mgIndications:const ipation Take 2 tablets by mouth 2 (two) times a day 120 tablet 12/11/19 25 Active tamsulosin (FLOMAX) 0.4 mg extended release capsule Take 1 capsule (0.4 mg total) by mouth daily with dinner 30 capsule 12/11/19 25 Active Active Problems Problem Noted Date Diagnosed Date Constipation 11/18/2024 Assessment & Plan (11/18/2024 4:20 PM CDT): -- aggressive bowel regimen while inpatient -- last BM: 11/18 -- will discharge with stool softener, OTC miralax 11/18 lactulose, milk of mag for BM Post-operative pain 11/16/2024 Assessment & Plan (11/18/2024 12:39 PM CDT): -- transitioned off of IV pain medications -- well controlled on multimodal oral regimen of scheduled acetaminophen; PRN cyclobenzaprine, oxycodone Cervical myelopathy 10/01/2024 Assessment & Plan (11/18/2024 4:19 PM CDT): --s/p C3-T1 PSDF on 11/15, closed with Nylons, drains x 1 --Reports improvement in preoperative pain --Post-op x-rays completed on 11/15 --therapy recs home --Patient will follow up with Dr. Gonzalez outpatient Cervical spinal stenosis 10/01/2024 Axillary nerve palsy 06/18/2024 Left rotator cuff tear arthropathy 06/18/2024 Arthritis 01/01/2021 Cancer 01/01/2021 DM (diabetes mellitus) 01/01/2021 Assessment & Plan (11/16/2024 8:03 AM CDT): Hx of: --Monitor blood glucose POCT ACHS --Managed with SSI, CC diet Hyperlipidemia 01/01/2021 Paroxysmal atrial fibrillation 02/18/2020 S/P CABG (coronary artery bypass graft) 02/18/20 Coronary artery disease 01/18/2020 Aspirin allergy 01/13/2020 Essential hypertension 12/25/2019 Oropharyngeal dysphagia 06/04/2017 Assessment & Plan (06/04/2017 10:46 AM MANAGER STRATEGIC SOURCING): With symptoms of constant need to clear [...] Encounters Date Type Department Care Team Description 12/29/2024 2:30 PM CDT Office Visit [facility] Medicine Neurosurgery [address] [facility] [address] [place] [address] Richard Gonzalez MD Cervical myelopathy (HCC) (Primary Dx) 12/29/2024 1:53 PM CDT - 12/29/2024 11:59 PM CDT Hospital Encounter [facility] Radiology [facility] [facility] [address] Reji MachadoAPRIL [phone] Cervical myelopathy (HCC) Discharge Disposition: Discharge to home or self care 12/29/2024 Telephone [facility] [address] [place] [address] [address] [place] [phone] Richard Gonzalez MD 12/24/2024 Orders Only [facility] [address] [place] [address] [address] [place] [phone] Richard Gonzalez MD Cervical myelopathy (HCC) (Primary Dx) 12/08/2024 Orders Only [facility] [address] [place] [address] [place] [phone] Richard Gonzalez MD S/P spinal fusion (Primary Dx); Cervical myelopathy (HCC) 11/29/2024 11:00 AM CDT Clinical Support [facility] [address] [place] [address] [place] [phone] 11/18/2024 Telephone [facility] [address] [place] [address] [address] [place] [phone] Richard Gonzalez MD 11/15/2024 8:12 AM CDT Anesthesia Event [facility] Operating Room [address] [place] [address] Ankit May MD Meiners, Alea Marie, NP 11/15/2024 7:30 AM CDT - 11/15/2024 1:45 PM CDT Surgery [facility] Operating Room [address] [place] [address] Richard Gonzalez MD FUSION CERVICAL/THORACIC - POSTERIOR WITH INSTRUMENTATION C3-T1 posterior spinal decompression and fusion, C4-5 foraminotomies 11/15/2024 5:25 AM CDT - 11/18/2024 6:38 PM CDT Hospital [address] [phone] Richard Gonzalez MD Discharge Disposition: Discharge to home or self care 10/25/2024 8:00 AM CDT Pre-Admission Testing [facility] Center for Preoperative Assessment and Planning [facility] ([facility]) [address] [place] [address] Preoperative testing (Primary Dx); Cervical myelopathy (HCC); Elevated clotting time; Vitamin D deficiency from Last 3 Months Surgical History Surgery Date Site/Laterality Comments FLUORO GUIDED INJECTION SHOULDER LEFT 07/15/2019 Lef t FLUORO GUIDED INJECTION SHOULDER LEFT 01/18/2021 Lef t Medical History Medical History Date Comments Hypertension Lymphosarcoma (HCC) trated with surgery only 1977 Diabetes (HCC) 01/01/2021 Postoperative delirium patient i s agitated and aggressive with anesthesia Family History Medical History Relation Name Comments [...] e alcohol) 3 -4 beers per week AUDIT-C Answer Date Recorded Q1: How often do you have a drink containing alc ohol? Monthly or less 11/15/2024 Q2: How many drinks containi ng alcohol do you have on a typical day when you are drinking? 1 or 2 11/15/2024 Q3: How often do you have si x or more drinks on one occasion? Never 11/15/2024 Personal Safety Answer Date Recorded Have you ever been in or are you currently in a harmful physical or emotional relationship or is someone making you feel afraid or unsafe? Denies 11/15/2024 Sex and Gender Information Value Date Recorded Sex Assigned at Not on file Legal Sex Male 11:16 AM MANAGER STRATEGIC SOURCING Gender Identity Male 12/27/2020 9:51 AM CDT Sexual Orientation Straight 12/27/2020 9: 51 AM CDT Obstetrics History Last Filed Vital Signs Vital Sign Reading Time Taken Comments Blood Pressure 137/77 11/18/2024 4:16 PM CDT Pulse 112 11/18/2024 4:16 PM CDT Temperature 36.7 C (98.1 F) 11/18/2024 4:16 PM CDT Respiratory Rate 18 11/18/2024 4:16 PM CDT Oxygen Saturation 98% 11/18/2024 4:16 PM CDT Inhaled Oxygen Concentration - - Weight 102.7 kg (226 lb 6.6 oz) 11/15/2024 5:35 PM CDT Height 185.4 cm (6' 0.99) 11/15/2024 5:35 PM CD T Body Mass Index 29.88 11/15/2024 5:35 PM CDT Plan of Treatment Health Maintenance Due Date Last Done Comments Albumin Creatinine Ratio, Urine 1948 Depression Screening 1950 Hepatitis C Screening 1950 Dilated Eye Exam 1948 Foot Exam 1948 DTaP/Tdap/Td Vaccine (1 - Tdap) 1959 Hepatitis B Screening 1966 Well Visit 65+ 2013 Influenza Vaccine (#1) 2025 Hemoglobin A1C 04/26/2025 10/25/2024 Lipid Panel 11/15/2025 11/15/2024, 030 10/2024, 05/17/2021, Additional history exists eGFR 11/17/2025 11/17/2024, 12/2024, 11/15/2024, Additional history exists Fall Risk Assessment 11/18/2025 11/18/2024 Pneumococcal vaccine 65+ Completed 10/23/2015, 12/2014 Zoster Vaccine Completed 01/29/2019, 06/12, 10/21/2012 Medical Devices Implanted Type Area Pre Owned Sales Consultant Device Identifier Shelf Expiration Date Model / Serial / Lot [employer] Graft Bone Magnetos 5cc 1-2mm Granules In Moldable Putty [id number] - [id number] Implanted:Qty : 1 on 11/15/2024 by Rihcard Gonzalez MD at [facility] N/A: Spine Cervical [employer] [id number] 11/09/2028 [id number] S / / [id number] [facility] 3.5x16 Favored Angle Screws Implanted:Qty : 8 on 11/15/2024 by Richard Gonzalez MD at [facility] N/A: Spine Cervical [employer] [id number] / [id number] / Description:APPROVED [facility] IT EM FROM LIST - [facility] CODE USED [employer] Pcf Set Screw Implanted:Qty : 10 on 11/15/2024 by Richard Gonzalez MD at [facility] N/A: Spine Cervical [employer] [id number] / / Description:APPROVED [facility] IT EM FROM [facility] CODE USED [employer] 5.0x35 Reduction Screws Implanted:Qty : 2 on 11/15/2024 by Richard Gonzalez MD at [facility] N/A: Spine Cervical [employer] [id number] / / Description:APPROVED [facility] IT EM FROM [facility] CODE USED [employer] 4.0x90mm Prebent Rods Implanted:Qty : 2 on 11/15/2024 by Richard Gonzalez MD at [facility] N/A: Spine Cervical [employer] [id number] / / Description:APPROVED [facility] IT EM FROM [facility] CODE USED Procedures Procedure Name Priority Date/Time Associated Diagnosis Comments XR SPINE CERVICAL 2 OR 3 VIEWS Schedule Routine, Read Routine (OP Routine) 12/29/2024 2:19 PM CDT Cervical myelopathy (HCC) POCT GLUCOSE DEVICE Routine 11/18/2024 4 :49 PM CDT POCT GLUCOSE DEVICE Routine 11/18/2024 11:43 AM CDT POCT GLUCOSE DEVICE Routine 11/18/2024 7 :53 AM CDT INFECTION PREVENTION STACY AURIS PCR, SURVEILLANCE Routine 11/18/2024 6:26 AM CDT EGFR Routine 11/17/2024 10:05 PM CDT DIFFERENTIAL AUTO Routine 11/17/2024 10:05 PM CDT PHOSPHORUS Routine 11/17/2024 10:05 PM CDT MAGNESIUM Routine 11/17/2024 10:05 PM CDT BASIC METABOLIC PANEL Routine 11/17/2024 10:05 PM CDT CBC WITH AUTO DIFFERENTIAL Routine 11/17/2024 10:05 PM CDT POCT GLUCOSE DEVICE Routine 11/17/2024 8 :56 PM CDT POCT GLUCOSE DEVICE Routine 11/17/2024 5 :54 PM CDT POCT GLUCOSE DEVICE Routine 11/17/2024 11:44 AM CDT POCT GLUCOSE DEVICE Routine 11/17/2024 8 :20 AM CDT EGFR Routine 11/16/2024 9:47 PM CDT DIFFERENTIAL AUTO Routine 11/16/2024 9:4 7 PM CDT PHOSPHORUS Routine 11/16/2024 9:47 PM CDT MAGNESIUM Routine 11/16/2024 9:47 PM CDT BASIC METABOLIC PANEL Routine 11/16/2024 9:47 PM CDT CBC WITH AUTO DIFFERENTIAL Routine 11/16/2024 9:47 PM CDT POCT GLUCOSE DEVICE Routine 11/16/2024 8 :10 PM CDT POCT GLUCOSE DEVICE Routine 11/16/2024 4 :12 PM CDT POCT GLUCOSE DEVICE Routine 11/16/2024 11:07 AM CDT POCT GLUCOSE DEVICE Routine 11/16/2024 8 :04 AM CDT LIPID PANEL Routine 11/15/2024 10:41 PM CDT EGFR Routine 11/15/2024 10:41 PM CDT DIFFERENTIAL AUTO Routine 11/15/2024 10:41 PM CDT PHOSPHORUS Routine 11/15/2024 10:41 PM CDT MAGNESIUM Routine 11/15/2024 10:41 PM CDT BASIC METABOLIC PANEL Routine 11/15/2024 10:41 PM CDT CBC WITH AUTO DIFFERENTIAL Routine 11/15/2024 10:41 PM CDT POCT GLUCOSE DEVICE Routine 11/15/2024 10:29 PM CDT XR SPINE CERVICAL 2 OR 3 VIEWS IP Routine 11/15/2024 10:01 PM CDT POCT GLUCOSE DEVICE Routine 11/15/2024 5 :41 PM CDT POCT GLUCOSE DEVICE Routine 11/15/2024 2 :03 PM CDT FL FLUOROSCOPY < 1 HOUR IP Routine 11/15/2024 12:06 PM CDT POCT GLUCOSE DEVICE Routine 11/15/2024 11:34 AM CDT NM AN PROCEDURE PLACEHOLDER Routine 11/15/2024 10:29 AM CDT NM AN PROCEDURE PLACEHOLDER Routine 11/15/2024 9:22 AM CDT NM AN ELECTIVE ENDOTRACHEAL AIRWAY Routine 11/15/2024 9:22 AM CDT POCT GLUCOSE DEVICE Routine 11/15/2024 9 :21 AM CDT SPINAL CORD MONITORING 8:11 AM CDT Cervical myelopathy (HCC) Cervical spinal stenosis Case Notes [email or web address] Neil via email add Dr. Choi and Ashley- DMF [email or web address] Malin via case msg reschedule to 11/15- DMF FORAMINOTOMY CERVICAL - POSTERIOR 11/15/2024 8:11 AM CDT Cervical myelopathy (HCC) Cervical spinal stenosis Case Notes [email or web address] via email add Dr. Choi and [place]- DMF [email or web address] Per Dea via case msg reschedule to 11/15- DMF FUSION CERVICAL/THORACIC - POSTERIOR WITH INSTRUMENTATION 11/15/2024 8:11 AM CDT Cervical myelopathy (HCC) Cervical spinal stenosis Case Notes [email or web address] via email add Dr. Choi and Ashley- DMF [email or web address]- Per Dea via case msg reschedule to 11/15- DMF POCT GLUCOSE DEVICE Routine 11/15/2024 6 :17 AM CDT TYPE AND SCREEN STAT 11/15/2024 6:14 AM CDT EGFR Routine 10/25/2024 9:32 AM CDT Cervical myelopathy (HCC) URINALYSIS, MICROSCOPIC ONLY Routine 10/25/2024 9:32 AM CDT Cervical myelopathy (HCC) DIFFERENTIAL AUTO Routine 10/25/2024 9:3 2 AM CDT Cervical myelopathy (HCC) CPAP APTT ALGORITHM Routine 10/25/2024 9 :32 AM CDT Preoperative testing TYPE AND SCREEN 14 DAY Routine 9:32 AM CDT Preoperative testing BASIC METABOLIC PANEL Routine 10/25/2024 9:32 AM CDT Cervical myelopathy (HCC) VITAMIN D 25 HYDROXY Routine 10/25/2024 9:32 AM CDT Cervical myelopathy (HCC) Vitamin D deficiency CBC WITH AUTO DIFFERENTIAL Routine 10/25/2024 9:32 AM CDT Cervical myelopathy (HCC) PROTIME-INR Routine 10/25/2024 9:32 AM CDT Cervical myelopathy (HCC) Elevated clotting time URINALYSIS AND REFLEX TO MICROSCOPIC AND CULTURE Routine 10/25/2024 9:32 AM CDT Cervical myelopathy (HCC) POCT HEMOGLOBIN A1C Routine 10/25/2024 8 :58 AM CDT ECG 12-LEAD Routine 10/25/2024 8:51 AM CDT Preoperative testing from Last 3 Months Results * XR Spine Cervical 2 or 3 Views (12/29/2024 2:19 PM CDT) Anatomical Region Laterality Modality Spine N/A Computed Radiogr aphy 12/29/2024 3:04 PM CDT Impressions 12/29/2024 3:04 PM CDT Unchanged instrumented posterior spinal fusion of C3-T1. Electronically signed by: Federico Pham MD Narrative 12/29/2024 3:04 PM CDT EXAMINATION: XR SPINE CERVICAL 2 OR 3 VIEWS HISTORY: Cervical myelopathy FINDINGS: Comparison dated 11/15/2024. Unchanged instrumented posterior spinal fusion of C3-T1 with posterior decompression at C3-C7. No fracture. No prevertebral soft tissue swelling. Moderate lower cervical degenerative disc disease. Median sternotomy wires are aligned. Procedure Note Federico Pham MD - 12/29/2024 EXAMINATION: XR SPINE CERVICAL 2 OR 3 VIEWS HISTORY: Cervical myelopathy FINDINGS: Comparison dated 11/15/2024. Unchanged instrumented posterior spinal fusion of C3-T1 with posterior decompression at C3-C7. No fracture. No prevertebral soft tissue swelling. Moderate lower cervical degenerative disc disease. Median sternotomy wires are aligned. IMPRESSION: Unchanged instrumented posterior spinal fusion of C3-T1. Electronically signed by: Federico Pham MD Richard Gonzalez MD IMG XR PROCEDURES Final Result * POCT glucose (11/18/2024 4:49 PM CDT) Glucose, POC 159 70 - 199 mg/dL Blood 11/18/2024 4:49 PM CDT 11/18/2024 4:49 PM CDT Richard Gonzalez MD LAB POCT ORDERABLES - DEVICE Fi nal Result Performing Organization Address [facility] Co de Phone Number [facility] [place] [address] * POCT glucose (11/18/2024 11:43 AM CDT) Glucose, POC 147 70 - 199 mg/dL Blood 11/18/2024 11:4 3 AM CDT 11/18/2024 11:43 AM CDT Richard Gonzalez MD LAB POCT ORDERABLES - DEVICE Fi nal Result Performing Organization Address [facility] Co de Phone Number [facility] Department [place] [address] * POCT glucose (11/18/2024 7:53 AM CDT) Glucose, POC 156 70 - 199 mg/dL Blood 11/18/2024 7:53 AM CDT 11/18/2024 7:53 AM CDT Richard Gonzalez MD LAB POCT ORDERABLES - DEVICE Fi nal Result Performing Organization Address City/[facility] Co de Phone Number [facility] [place] [address] * Infection Prevention Stacy auris PCR, surveillance Axilla/Groin (11/18/2024 6:26 AM CDT) Stacy auris DNA Not Detected Not Detected [facility] Comment: Interpretive Data Testing performed by [facility] Infectious Disease Laboratory using the Ankur makenzie 6800 Stacy auris assay. This assay detects DNA from Stacy auris using Real-Time PCR. This assay is laboratory developed and is not cleared by the [place] Food and Drug Administration. The performance characteristics have been verified by the [facility]. Axilla/Groin 11/18/2024 6:26 AM CDT 11/18/2024 6:47 AM CDT Narrative BIMAL NGUYEN - 11/18/2024 1:59 PM CDT Order placed by [facility] due to ring surveillance. us Instant Order Generic Provider LAB MICROBIOLOGY - GENERAL ORDERABLES Final Result [facility] [place] [address] [facility] * eGFR (11/17/2024 10:05 PM CDT) eGFR >90 >=60 mL/min/1. 73 m2 Comment: Interpretive Data Reference Interval Normal >/= 90 mL/min/1.73m2 Mildly decreased* 60 - 89 mL/min/1.73m2 Mildly to moderately decreased 45 - 59 mL/min/1.73m2 Moderately to severely decreased 30 - 44 mL/min/1.73m2 Severely decreased 15 - 29 mL/min/1.73m2 Kidney Failure < 15 mL/min/1.73m2 *Relative to young adult level Estimated glomerular filtration rate is determined by the 2020 CKD-EPI equation recommended by the National Kidney Foundation (A Unifying Approach to GFR Estimation: Recommendations of the NKF-ASK Task Force on Reassessing the Inclusion of Race in Diagnosing Kidney Disease, JASN 2020). The CKD-EPI equation should not be used for patients with unstable renal function and has not been validated in children and those over 70. Current interpretive data was last reviewed 2021. Blood 11/17/2024 10:0 5 PM CDT 11/17/2024 10:43 PM CDT us Richard Gonzalez MD LAB BLOOD ORDERABLES Final Resu lt [place] [address] * (ABNORMAL) Differential, auto (11/17/2024 10:05 PM CDT) Neutrophil abs 6.57(H) 1.50 - 6.50 K/cumm Imm gran abs 0.04 0.00 - 0.10 K/cumm [facility] Lymphocyte abs 1.26 0.80 - 3.30 K/cumm [facility] Monocyte abs 0.71 0.20 - 0.80 K/cumm [facility] Eosinophil abs 0.13 0.00 - 0.50 K/cumm [facility] Basophil abs 0.02 0.00 - 0.10 K/cumm [facility] Neutrophil pct 75.3 % [facility] Comment: Interpretive Data Percent cell count reference ranges are not reported, since discordance with absolute values may lead to misinterpretation of CBC data. Current Interpretive Data was last revised on 2017. Imm gran pct 0.5 % [facility] Comment: Interpretive Data Percent cell count reference ranges are not reported, since discordance with absolute values may lead to misinterpretation of CBC data. Current Interpretive Data was last revised on 2017. Lymphocyte pct 14.4 % [facility] Comment: Interpretive Data Percent cell count reference ranges are not reported, since discordance with absolute values may lead to misinterpretation of CBC data. Current Interpretive Data was last revised on 2017. Monocyte pct 8.1 % [facility] Comment: Interpretive Data Percent cell count reference ranges are not reported, since discordance with absolute values may lead to misinterpretation of CBC data. Current Interpretive Data was last revised on 2017. Eosinophil pct 1.5 % [facility] Comment: Interpretive Data Percent cell count reference ranges are not reported, since discordance with absolute values may lead to misinterpretation of CBC data. Current Interpretive Data was last revised on 2017. Basophil pct 0.2 % [facility] Comment: Interpretive Data Percent cell count reference ranges are not reported, since discordance with absolute values may lead to misinterpretation of CBC data. Current Interpretive Data was last revised on 2017. Blood 11/17/2024 10:0 5 PM CDT 11/17/2024 10:44 PM CDT Richard Gonzalez MD LAB BLOOD ORDERABLES Final Resu lt [facility] [place] [address] * (ABNORMAL) CBC with auto differential (11/17/2024 10:05 PM CDT) Pathologist [facility] [place] WBC 8.73 3.80 - 9.90 K/cumm Hgb 11.0(L) 13.0 - 17.5 g/dL [facility] Hct 32.1(L) 38.9 - 50.3 % [facility] Plt 155 150 - 400 K/cumm [facility] MPV 9.2 9.1 - 12.3 fL [facility] RBC 3.57(L) 4.30 - 5.80 M/cumm [facility] MCV 89.9 81.3 - 96.4 fL [facility] MCH 30.8 27.1 - 33.3 pg [facility] MCHC 34.3 32.3 - 35.7 g/dL [facility] RDW CV 13.0 11.1 - 14.9 % [facility] RDW SD 42.6 35.7 - 48.1 fL [facility] NRBC abs 0.00 0.00 - 0.01 K/cumm [facility] Blood 11/17/2024 10:0 5 PM CDT 11/17/2024 10:44 PM CDT Richard Gonzalez MD LAB BLOOD ORDERABLES Final Resu lt [facility] Department [place] [address] * Phosphorus (11/17/2024 10:05 PM CDT) Phosphorus, pl 2.3 2.3 - 4.5 mg/dL Blood 11/17/2024 10:0 5 PM CDT 11/17/2024 10:43 PM CDT Richard Gonzalez MD LAB BLOOD ORDERABLES Final Resu lt [facility] Department [place] [address] * Magnesium (11/17/2024 10:05 PM CDT) Pathologist [facility] [place] Magnesium 2.0 1.4 - 2.5 mg/dL Blood 11/17/2024 10:0 5 PM CDT 11/17/2024 10:43 PM CDT Richard Gonzalez MD LAB BLOOD ORDERABLES Final Resu lt Performing Organization Address [facility] de Phone Number [facility] Department [place] [address] * Basic metabolic panel (11/17/2024 10:05 PM CDT) Sodium 139 135 - 145 mmol/L Potassium, pl 3.8 3.3 - 4.9 mmol/L [facility] Chloride 105 97 - 110 mmol/L [facility] CO2 27 22 - 32 mmol/L [facility] Anion gap 7 2 - 15 mmol/L [facility] BUN 11 6 - 25 mg/dL [facility] Creatinine 0.82 0.80 - 1.30 mg/dL [facility] Glucose 151 70 - 199 mg/dL [facility] Comment: Interpretive Data Fasting glucose >/= 126 mg/dl is diagnostic for diabetes. Fasting is defined as no caloric intake for at least 8 hours. Fasting glucose between 100 mg/dl to 125 mg/dl is diagnostic of prediabetes. In a patient with classic symptoms of hyperglycemia or hyperglycemic crisis, a random glucose >/= 200 mg/dl is diagnostic for diabetes. In the absence of unequivocal hyperglycemia, results should be confirmed by repeat testing. The classification and Diagnosis of Diabetes Diabetes Care 2021; 46: S19-S40. Current interpretive data was last revised 2022. Calcium 8.9 8.5 - 10.3 mg/dL [facility] Blood 11/17/2024 10:0 5 PM CDT 11/17/2024 10:43 PM CDT Richard Gonzalez MD LAB BLOOD ORDERABLES Final Resu lt Performing Organization Address City/[facility] Co de Phone Number [facility] [place] [place] [address] * (ABNORMAL) POCT glucose (11/17/2024 8:56 PM CDT) Glucose, POC 204(H) 70 - 199 mg/dL Blood 11/17/2024 8:56 PM CDT 11/17/2024 8:56 PM CDT Richard Gonzalez MD LAB POCT ORDERABLES - DEVICE Fi nal Result Performing Organization Address [facility] Co de Phone Number [facility] [place] [address] * POCT glucose (11/17/2024 5:54 PM CDT) Glucose, POC 103 70 - 199 mg/dL Blood 11/17/2024 5:54 PM CDT 11/17/2024 5:54 PM CDT Richard Gonzalez MD LAB POCT ORDERABLES - DEVICE Fi nal Result Performing Organization Address [facility] Co de Phone Number [facility] [place] [address] * POCT glucose (11/17/2024 11:44 AM CDT) Glucose, POC 157 70 - 199 mg/dL Blood 11/17/2024 11:4 4 AM CDT 11/17/2024 11:44 AM CDT Richard Gonzalez MD LAB POCT ORDERABLES - DEVICE Fi nal Result Performing Organization Address City/State/[facility] Co de Phone Number BIMAL [facility] [place] [address] * POCT glucose (11/17/2024 8:20 AM CDT) Glucose, POC 137 70 - 199 mg/dL Blood 11/17/2024 8:20 AM CDT 11/17/2024 8:20 AM CDT Richard Gonzalez MD LAB POCT ORDERABLES - DEVICE Fi nal Result Performing Organization Address [facility] de Phone Number BIMAL [facility] [place] [address] * eGFR (11/16/2024 9:47 PM CDT) eGFR 84 >=60 mL/min/1. 73 m2 Comment: Interpretive Data Reference Interval Normal >/= 90 mL/min/1.73m2 Mildly decreased* 60 - 89 mL/min/1.73m2 Mildly to moderately decreased 45 - 59 mL/min/1.73m2 Moderately to severely decreased 30 - 44 mL/min/1.73m2 Severely decreased 15 - 29 mL/min/1.73m2 Kidney Failure < 15 mL/min/1.73m2 *Relative to young adult level Estimated glomerular filtration rate is determined by the 2020 CKD-EPI equation recommended by the National Kidney Foundation (A Unifying Approach to GFR Estimation: Recommendations of the NKF-ASK Task Force on Reassessing the Inclusion of Race in Diagnosing Kidney Disease, JASN 2020). The CKD-EPI equation should not be used for patients with unstable renal function and has not been validated in children and those over 70. Current interpretive data was last reviewed 2021. Blood 11/16/2024 9:47 PM CDT 11/16/2024 10:35 PM CDT us Richard Gonzalez MD LAB BLOOD ORDERABLES Final Resu lt [facility] Department [place] [address] * (ABNORMAL) Differential, auto (11/16/2024 9:47 PM CDT) Neutrophil abs 6.93(H) 1.50 - 6.50 K/cumm Imm gran abs 0.04 0.00 - 0.10 K/cumm [facility] Lymphocyte abs 1.47 0.80 - 3.30 K/cumm [facility] Monocyte abs 0.99(H) 0.20 - 0.80 K/cumm [facility] Eosinophil abs 0.16 0.00 - 0.50 K/cumm [facility] Basophil abs 0.03 0.00 - 0.10 K/cumm [facility] Neutrophil pct 72.0 % [facility] Comment: Interpretive Data Percent cell count reference ranges are not reported, since discordance with absolute values may lead to misinterpretation of CBC data. Current Interpretive Data was last revised on 2017. Imm gran pct 0.4 % [facility] Comment: Interpretive Data Percent cell count reference ranges are not reported, since discordance with absolute values may lead to misinterpretation of CBC data. Current Interpretive Data was last revised on 2017. Lymphocyte pct 15.3 % [facility] Comment: Interpretive Data Percent cell count reference ranges are not reported, since discordance with absolute values may lead to misinterpretation of CBC data. Current Interpretive Data was last revised on 2017. Monocyte pct 10.3 % [facility] Comment: Interpretive Data Percent cell count reference ranges are not reported, since discordance with absolute values may lead to misinterpretation of CBC data. Current Interpretive Data was last revised on 2017. Eosinophil pct 1.7 % [facility] Comment: Interpretive Data Percent cell count reference ranges are not reported, since discordance with absolute values may lead to misinterpretation of CBC data. Current Interpretive Data was last revised on 2017. Basophil pct 0.3 % [facility] Comment: Interpretive Data Percent cell count reference ranges are not reported, since discordance with absolute values may lead to misinterpretation of CBC data. Current Interpretive Data was last revised on 2017. Blood 11/16/2024 9:47 PM CDT 11/16/2024 10:35 PM CDT Richard Gonzalez MD LAB BLOOD ORDERABLES Final Resu lt [facility] [place] [address] * (ABNORMAL) CBC with auto differential (11/16/2024 9:47 PM CDT) Pathologist [facility] [place] WBC 9.62 3.80 - 9.90 K/cumm Hgb 11.3(L) 13.0 - 17.5 g/dL [facility] Hct 33.3(L) 38.9 - 50.3 % [facility] Plt 165 150 - 400 K/cumm [facility] MPV 9.4 9.1 - 12.3 fL [facility] RBC 3.70(L) 4.30 - 5.80 M/cumm [facility] MCV 90.0 81.3 - 96.4 fL [facility] MCH 30.5 27.1 - 33.3 pg [facility] MCHC 33.9 32.3 - 35.7 g/dL [facility] RDW CV 13.0 11.1 - 14.9 % [facility] RDW SD 42.9 35.7 - 48.1 fL [facility] NRBC abs 0.00 0.00 - 0.01 K/cumm [facility] Blood 11/16/2024 9:47 PM CDT 11/16/2024 10:35 PM CDT Richard Gonzalez MD LAB BLOOD ORDERABLES Final Resu lt [facility] [place] [address] * Phosphorus (11/16/2024 9:47 PM CDT) [facility] Phosphorus, pl 2.5 2.3 - 4.5 mg/dL Blood 11/16/2024 9:47 PM CDT 11/16/2024 10:35 PM CDT Richard Gonzalez MD LAB BLOOD ORDERABLES Final Resu lt Performing Organization Address City/[facility]/ZIP Co de Phone Number [facility] Department [place] [address] * Magnesium (11/16/2024 9:47 PM CDT) [facility] Magnesium 1.8 1.4 - 2.5 mg/dL Blood 11/16/2024 9:47 PM CDT 11/16/2024 10:35 PM CDT Richard Gonzalez MD LAB BLOOD ORDERABLES Final Resu lt Performing Organization Address City/[facility] Co de Phone Number [facility] [place] [address] * Basic metabolic panel (11/16/2024 9:47 PM CDT) [facility] Sodium 137 135 - 145 mmol/L Potassium, pl 3.9 3.3 - 4.9 mmol/L [facility] Chloride 105 97 - 110 mmol/L [facility] CO2 27 22 - 32 mmol/L [facility] Anion gap 5 2 - 15 mmol/L [facility] BUN 11 6 - 25 mg/dL [facility] Creatinine 0.94 0.80 - 1.30 mg/dL [facility] Glucose 151 70 - 199 mg/dL [facility] Comment: Interpretive Data Fasting glucose >/= 126 mg/dl is diagnostic for diabetes. Fasting is defined as no caloric intake for at least 8 hours. Fasting glucose between 100 mg/dl to 125 mg/dl is diagnostic of prediabetes. In a patient with classic symptoms of hyperglycemia or hyperglycemic crisis, a random glucose >/= 200 mg/dl is diagnostic for diabetes. In the absence of unequivocal hyperglycemia, results should be confirmed by repeat testing. The classification and Diagnosis of Diabetes Diabetes Care 2021; 46: S19-S40. Current interpretive data was last revised 2022. Calcium 8.8 8.5 - 10.3 mg/dL [facility] Blood 11/16/2024 9:47 PM CDT 11/16/2024 10:35 PM CDT Richard Gonzalez MD LAB BLOOD ORDERABLES Final Resu lt Performing Organization Address City/[facility]/ZIP Co de Phone Number [facility] [place] [address] * POCT glucose (11/16/2024 8:10 PM CDT) Glucose, POC 156 70 - 199 mg/dL Blood 11/16/2024 8:10 PM CDT 11/16/2024 8:10 PM CDT Result [facility] Richard Gonzalez MD LAB POCT ORDERABLES - DEVICE Fi nal Result Performing Organization Address [facility] Co de Phone Number [facility] [place] [address] * POCT glucose (11/16/2024 4:12 PM CDT) Glucose, POC 154 70 - 199 mg/dL Blood 11/16/2024 4:12 PM CDT 11/16/2024 4:12 PM CDT Richard Gonzalez MD LAB POCT ORDERABLES - DEVICE Fi nal Result Performing Organization Address City/[facility] Co de Phone Number [facility] [place] [address] * POCT glucose (11/16/2024 11:07 AM CDT) Glucose, POC 163 70 - 199 mg/dL Blood 11/16/2024 11:0 7 AM CDT 11/16/2024 11:07 AM CDT Richard Gonzalez MD LAB POCT ORDERABLES - DEVICE Fi nal Result Performing Organization Address City/[facility] Co de Phone Number [facility] Department [place] [address] * POCT glucose (11/16/2024 8:04 AM CDT) Glucose, POC 137 70 - 199 mg/dL Blood 11/16/2024 8:04 AM CDT 11/16/2024 8:04 AM CDT Richard Gonzalez MD LAB POCT ORDERABLES - DEVICE Fi nal Result Performing Organization Address City/[facility] de Phone Number [facility] Department [place] [address] * eGFR (11/15/2024 10:41 PM CDT) eGFR 89 >=60 mL/min/1. 73 m2 Comment: Interpretive Data Reference Interval Normal >/= 90 mL/min/1.73m2 Mildly decreased* 60 - 89 mL/min/1.73m2 Mildly to moderately decreased 45 - 59 mL/min/1.73m2 Moderately to severely decreased 30 - 44 mL/min/1.73m2 Severely decreased 15 - 29 mL/min/1.73m2 Kidney Failure < 15 mL/min/1.73m2 *Relative to young adult level Estimated glomerular filtration rate is determined by the 2020 CKD-EPI equation recommended by the National Kidney Foundation (A Unifying Approach to GFR Estimation: Recommendations of the NKF-ASK Task Force on Reassessing the Inclusion of Race in Diagnosing Kidney Disease, JASN 202). The CKD-EPI equation should not be used for patients with unstable renal function and has not been validated in children and those over 70. Current interpretive data was last reviewed 2021. Blood 11/15/2024 10:4 1 PM CDT 11/15/2024 11:28 PM CDT us Richard Gonzalez MD LAB BLOOD ORDERABLES Final Resu lt [facility] Department [place] [address] * (ABNORMAL) Differential, auto (11/15/2024 10:41 PM CDT) Neutrophil abs 9.07(H) 1.50 - 6.50 K/cumm Imm gran abs 0.06 0.00 - 0.10 K/cumm [facility] Lymphocyte abs 0.99 0.80 - 3.30 K/cumm [facility] Monocyte abs 0.59 0.20 - 0.80 K/cumm [facility] Eosinophil abs 0.05 0.00 - 0.50 K/cumm [facility] Basophil abs 0.02 0.00 - 0.10 K/cumm [facility] Neutrophil pct 84.0 % [facility] Comment: Interpretive Data Percent cell count reference ranges are not reported, since discordance with absolute values may lead to misinterpretation of CBC data. Current Interpretive Data was last revised on 2017. Imm gran pct 0.6 % [facility] Comment: Interpretive Data Percent cell count reference ranges are not reported, since discordance with absolute values may lead to misinterpretation of CBC data. Current Interpretive Data was last revised on 2017. Lymphocyte pct 9.2 % [facility] Comment: Interpretive Data Percent cell count reference ranges are not reported, since discordance with absolute values may lead to misinterpretation of CBC data. Current Interpretive Data was last revised on 2017. Monocyte pct 5.5 % [facility] Comment: Interpretive Data Percent cell count reference ranges are not reported, since discordance with absolute values may lead to misinterpretation of CBC data. Current Interpretive Data was last revised on 2017. Eosinophil pct 0.5 % [facility] Comment: Interpretive Data Percent cell count reference ranges are not reported, since discordance with absolute values may lead to misinterpretation of CBC data. Current Interpretive Data was last revised on 2017. Basophil pct 0.2 % [facility] Comment: Interpretive Data Percent cell count reference ranges are not reported, since discordance with absolute values may lead to misinterpretation of CBC data. Current Interpretive Data was last revised on 2017. Blood 11/15/2024 10:4 1 PM CDT 11/15/2024 11:28 PM CDT us Richard Gonzalez MD LAB BLOOD ORDERABLES Final Resu lt [facility] Department [place] [address] * (ABNORMAL) CBC with auto differential (11/15/2024 10:41 PM CDT) WBC 10.78(H) 3.80 - 9.90 K/cumm Hgb 11.5(L) 13.0 - 17.5 g/dL [facility] Hct 34.2(L) 38.9 - 50.3 % [facility] Plt 163 150 - 400 K/cumm [facility] MPV 9.2 9.1 - 12.3 fL [facility] RBC 3.74(L) 4.30 - 5.80 M/cumm [facility] MCV 91.4 81.3 - 96.4 fL [facility] MCH 30.7 27.1 - 33.3 pg [facility] MCHC 33.6 32.3 - 35.7 g/dL [facility] RDW CV 13.1 11.1 - 14.9 % [facility] RDW SD 43.7 35.7 - 48.1 fL [facility] NRBC abs 0.00 0.00 - 0.01 K/cumm [facility] Blood 11/15/2024 10:4 1 PM CDT 11/15/2024 11:28 PM CDT Richard Gonzalez MD LAB BLOOD ORDERABLES Final Resu lt Performing Organization Address [facility] Co de Phone Number [facility] [place] [address] * Phosphorus (11/15/2024 10:41 PM CDT) Phosphorus, pl 3.5 2.3 - 4.5 mg/dL Blood 11/15/2024 10:4 1 PM CDT 11/15/2024 11:28 PM CDT Richard Gonzalez MD LAB BLOOD ORDERABLES Final Resu lt Performing Organization Address [facility] Co de Phone Number [facility] [place] [address] * Magnesium (11/15/2024 10:41 PM CDT) Magnesium 1.6 1.4 - 2.5 mg/dL Blood 11/15/2024 10:4 1 PM CDT 11/15/2024 11:28 PM CDT Richard Gonzalez MD LAB BLOOD ORDERABLES Final Resu lt Performing Organization Address [facility] Co de Phone Number [facility] [place] [address] * Lipid panel (11/15/2024 10:41 PM CDT) Cholesterol 103 30 - 199 mg/dL Comment: Interpretive Data Ages < or = 19 years Acceptable: <170 mg/dL Borderline high: 170-199 mg/dL High: >or= 200 mg/dL Ages > or = 20 years Desirable: <200 mg/dL Borderline high: 200-239 mg/dL High: >or= 240 mg/dL Literature References: 1. Expert Panel on Integrated Guidelines for Cardiovascular Health and Risk Reduction in Children and Adolescents. Pediatrics 2011;128:S213 2. NCEP Expert Panel. Circulation 2004;110:227 Current Interpretive Data was last revised on 2017. Triglycerides 65 <=149 mg/dL [facility] Comment: Interpretive Data Ages < or = 9 years Acceptable: <75 mg/dL Borderline high: 75-99 mg/dL High: >or= 100 mg/dL Ages 10 to 20 years Acceptable: <90 mg/dL Borderline high: 90-129 mg/dL High: >or= 130 mg/dL Ages > or = 20 years Desirable: <150 mg/dL Borderline high: 150-199 mg/dL High: 200-499 mg/dL Very high: >or= 499 mg/dL Literature References: 1. Expert Panel on Integrated Guidelines for Cardiovascular Health and Risk Reduction in Children and Adolescents. Pediatrics 2011;128:S213 2. NCEP Expert Panel. Circulation 2004;110:227 Current Interpretive Data was last revised on 2017. HDL 40 >=40 mg/dL [facility] Comment: Interpretive Data Ages < or = 19 years Acceptable: >45 mg/dL Borderline low: 40-45 mg/dL Low: <40 mg/dL Ages > or = 20 years Desirable: >or= 60 mg/dL Low: <40 mg/dL Literature References: 1. Expert Panel on Integrated Guidelines for Cardiovascular Health and Risk Reduction in Children and Adolescents. Pediatrics 2011;128:S213 2. NCEP Expert Panel. Circulation 2004;110:227 Current Interpretive Data was last revised on 2017. LDL, calculated 49 <=129 mg/dL [facility] Comment: Interpretive Data Ages < or = 19 years Acceptable: <110 mg/dL Borderline high: 110-129 mg/dL High: >or= 130 mg/dL Ages > or = 20 years Optimal: <100 mg/dL Near optimal: 100-129 mg/dL Borderline high: 130-159 mg/dL High: >160 mg/dL Calculated using the Ja LDL-C estimating equation. This equation was implemented on 2023. Prior to this date LDL-C was estimated using the Friedewald equation. Literature References: 1. Expert Panel on Integrated Guidelines for Cardiovascular Health and Risk Reduction in Children and Adolescents. Pediatrics 2011;128:S213 2. NCEP Expert Panel. Circulation 2004;110:227 3. Ja Lemos et al. SADE Cardiol. 2020 September 09;5(5):540-548. doi: 10.1001/jamacardio.2020.0013 Current Interpretive Data was last revised on 2023. Non-HDL Cholesterol 63 mg/dL [facility] Comment: Interpretive Data Ages < or = 19 years Acceptable: <120 mg/dL Borderline high: 120-144 mg/dL High: >145 mg/dL Ages > or = 20 years When triglycerides are >200 mg/dL, Non-HDL cholesterol is a secondary target of therapy with treatment goals that are 30 mg/dL greater than the LDL cholesterol target. Literature References: 1. Expert Panel on Integrated Guidelines for Cardiovascular Health and Risk Reduction in Children and Adolescents. Pediatrics 2011;128:S213 2. NCEP Expert Panel. Circulation 2004;110:227 Current Interpretive Data was last revised on 2017. Chol/HDL ratio 3 [facility] Blood 11/15/2024 10:4 1 PM CDT 11/15/2024 11:28 PM CDT Narrative [facility] - 11/16/2024 5:21 PM CDT Reflex us Richard Gonzalez MD LAB BLOOD ORDERABLES Final Resu lt [facility] Department [place] [address] * Basic metabolic panel (11/15/2024 10:41 PM CDT) Sodium 143 135 - 145 mmol/L Potassium, pl 4.0 3.3 - 4.9 mmol/L [facility] Chloride 108 97 - 110 mmol/L [facility] CO2 25 22 - 32 mmol/L [facility] Anion gap 10 2 - 15 mmol/L [facility] BUN 12 6 - 25 mg/dL [facility] Creatinine 0.88 0.80 - 1.30 mg/dL [facility] Glucose 127 70 - 199 mg/dL [facility] Comment: Interpretive Data Fasting glucose >/= 126 mg/dl is diagnostic for diabetes. Fasting is defined as no caloric intake for at least 8 hours. Fasting glucose between 100 mg/dl to 125 mg/dl is diagnostic of prediabetes. In a patient with classic symptoms of hyperglycemia or hyperglycemic crisis, a random glucose >/= 200 mg/dl is diagnostic for diabetes. In the absence of unequivocal hyperglycemia, results should be confirmed by repeat testing. The classification and Diagnosis of Diabetes Diabetes Care 2021; 46: S19-S40. Current interpretive data was last revised 2022. Calcium 8.5 8.5 - 10.3 mg/dL [facility] Blood 11/15/2024 10:4 1 PM CDT 11/15/2024 11:28 PM CDT Richard Gonzalez MD LAB BLOOD ORDERABLES Final Resu lt Performing Organization Address City/[facility]/ZIP Co de Phone Number [facility] Department [place] [address] * POCT glucose (11/15/2024 10:29 PM CDT) Glucose, POC 124 70 - 199 mg/dL Blood 11/15/2024 10:2 9 PM CDT 11/15/2024 10:29 PM CDT Richard Gonzalez MD LAB POCT ORDERABLES - DEVICE Fi nal Result Performing Organization Address [facility] Co de Phone Number [facility] Department [place] [address] * XR Spine Cervical 2 or 3 Views (11/15/2024 10:01 PM CDT) Anatomical Region Laterality Modality Spine N/A Computed Radiogr aphy 11/16/2024 6:50 AM CDT Impressions 11/16/2024 6:50 AM CDT New posterior cervical decompression and instrumented C3-T1 fusion in expected position. Electronically signed by: Manjinder Ospina M.D. Narrative 11/16/2024 6:50 AM CDT XR SPINE CERVICAL 2 OR 3 VIEWS HISTORY: Cervical fusion. FINDINGS: 3 views of the cervical spine are obtained and compared with 09/03/2024. There is interval posterior cervical decompression and instrumented fusion spanning C3-T1. Instrumentation is intact. Alignment is normal. Vertebral body heights are within normal limits. Posterior surgical drain is present. Procedure Note Manjinder Ospina MD - 11/16/2024 XR SPINE CERVICAL 2 OR 3 VIEWS HISTORY: Cervical fusion. FINDINGS: 3 views of the cervical spine are obtained and compared with 09/03/2024. There is interval posterior cervical decompression and instrumented fusion spanning C3-T1. Instrumentation is intact. Alignment is normal. Vertebral body heights are within normal limits. Posterior surgical drain is present. IMPRESSION: New posterior cervical decompression and instrumented C3-T1 fusion in expected position. Electronically signed by: Manjinder Ospina M.D. Result [facility] Richard Gonzalez MD IMG XR PROCEDURES Final Result * POCT glucose (11/15/2024 5:41 PM CDT) Glucose, POC 120 70 - 199 mg/dL Blood 11/15/2024 5:41 PM CDT 11/15/2024 5:41 PM CDT Result [facility] us Richard Gonzalez MD LAB POCT ORDERABLES - DEVICE Fi nal Result Performing Organization Address [facility] Co de Phone Number [facility] [place] [address] * POCT glucose (11/15/2024 2:03 PM CDT) Glucose, POC 128 70 - 199 mg/dL Blood 11/15/2024 2:03 PM CDT 11/15/2024 2:03 PM CDT Result [facility] us Richard Gonzalez MD LAB POCT ORDERABLES - DEVICE Fi nal Result Performing Organization Address [facility] Co de Phone Number [facility] [place] [address] * FL Fluoroscopy < 1 Hour (11/15/2024 12:06 PM CDT) Narrative [email or web address] - 11/15/2024 12:07 PM CDT The images from this study are not interpreted by Radiology. Please refer to the physician's procedure / OR operative note. Richard Gonzalez MD IMG FLUOROSCOPY PROCEDURES Brooke l Result Performing Organization Address [facility] de Phone Number [email or web address] * POCT glucose (11/15/2024 11:34 AM CDT) Glucose, POC 139 70 - 199 mg/dL Blood 11/15/2024 11:3 4 AM CDT 11/15/2024 11:34 AM CDT Richard Gonzalez MD LAB POCT ORDERABLES - DEVICE Fi nal Result Performing Organization Address [facility] de Phone Number [facility] Department [place] [address] * NM AN PROCEDURE PLACEHOLDER (11/15/2024 10:29 AM CDT) Narrative Ankit May MD - 11/15/2024 10:29 AM CDT Ankit May MD 11/15/2024 10:30 AM Arterial Line End time: 11/16/2024 8:30 AM Indication: continuous blood pressure monitoring and blood sampling needed Staff: Placed by: Anesthesiologist: Ankit May MD Procedure prep: Prep solution: chlorhexadine/alcohol Prep: provider hat/mask Arterial line: Catheter size: 20 gauge Catheter length: 1 and 3/8 inch Catheter type: wire-guided catheter Seldinger technique: yes Laterality: right Site: radial artery Line secured: tape and Tegaderm Results: good waveform and good blood return Number of attempts: 1 Assessment: Events: patient tolerated procedure well with no complications Ankit May MD ANESTHESIA ORDERA BLES Final Result * NM AN ELECTIVE ENDOTRACHEAL AIRWAY, NM AN PROCEDURE PLACEHOLDER (11/15/2024 9:22 AM CDT) Narrative Ankit May MD - 11/15/2024 9:22 AM CDT Ankit May MD 11/15/2024 9:27 AM Airway Patient location: OR Urgency: elective Date/time: 11/15/2024 8:23 AM Indications for airway management: anesthesia Difficult airway: no Staff: Placed by: Anesthesiologist: Ankit May MD Emergent airway documentation: Risks and benefits discussed: yes Consent obtained: yes Consent given by: patient Airway prep: Preoxygenated: yes Patient position: sniffing MILS maintained throughout: yes Mask difficulty assessment: 1 - vent by mask Spontaneous ventilation during airway: absent Sedation level during airway: GA Final airway details: Final airway type: endotracheal airway Tube type: ETT ETT size: 8.0 mm Cuffed: yes Technique used for successful ETT placement: video laryngoscopy Insertion site: oral Video blade type: Hayes Blade size: 2 Cormack-Lehane (video): grade I - full view of glottis Initial cuff pressure: 25 cm H2O Cuff inflated with: air ETT to lips: 23 cm Placement verified by: auscultation Airway secured with: silk tape and tegaderm Number of attempts: 1 Planned trial extubation: yes Additional comments: Maintained neutral cervical position. No complications us Ankit May MD ANESTHESIA ORDERA BLES Final Result * POCT glucose (11/15/2024 9:21 AM CDT) Glucose, POC 125 70 - 199 mg/dL Blood 11/15/2024 9:21 AM CDT 11/15/2024 9:21 AM CDT us Richard Gonzalez MD LAB POCT ORDERABLES - DEVICE Fi nal Result [facility] [place] [address] * POCT glucose (11/15/2024 6:17 AM CDT) Glucose, POC 128 70 - 199 mg/dL Blood 11/15/2024 6:17 AM CDT 11/15/2024 6:17 AM CDT Richard Gonzalez MD LAB POCT ORDERABLES - DEVICE Fi nal Result Performing Organization Address [facility] Co de Phone Number [facility] [place] [address] * Type and screen (11/15/2024 6:14 AM CDT) Robin, indirect Negative ABO Rh A Positive [facility] Blood 11/15/2024 6:14 AM CDT 11/15/2024 6:39 AM CDT Narrative [facility] - 11/15/2024 7:38 AM CDT Has the patient had Daratumumab or Isatuximab in the past 6 months?->Unknown Result [facility] Briseyda Recio NP LAB BLOOD BANK TEST O RDERABLES Final Result Performing Organization Address [facility] de Phone Number [facility] [place] [address] * TYPE AND SCREEN 14 DAY (10/25/2024 9:32 AM CDT) ABO Rh A Positive Robin, indirect Negative [facility] Blood 10/25/2024 9:32 AM CDT 10/25/2024 10:25 AM CDT Narrative [facility] - 10/25/2024 11:37 AM CDT Has the patient had Daratumumab or Isatuximab in the past 6 months?->Unknown Is this test being ordered in advance for a procedure?->Yes Expected date of procedure:->11/15/24 Has the patient been transfused in the past 3 months?->No Briseyda Recio NP LAB BLOOD BANK TEST O RDERABLES Final Result Performing Organization Address [facility] Co de Phone Number [facility] Department [place] [address] * eGFR (10/25/2024 9:32 AM CDT) eGFR 82 >=60 mL/min/1. 73 m2 Comment: Interpretive Data Reference Interval Normal >/= 90 mL/min/1.73m2 Mildly decreased* 60 - 89 mL/min/1.73m2 Mildly to moderately decreased 45 - 59 mL/min/1.73m2 Moderately to severely decreased 30 - 44 mL/min/1.73m2 Severely decreased 15 - 29 mL/min/1.73m2 Kidney Failure < 15 mL/min/1.73m2 *Relative to young adult level Estimated glomerular filtration rate is determined by the 2020 CKD-EPI equation recommended by the National Kidney Foundation (A Unifying Approach to GFR Estimation: Recommendations of the NKF-ASK Task Force on Reassessing the Inclusion of Race in Diagnosing Kidney Disease, JASN 2020). The CKD-EPI equation should not be used for patients with unstable renal function and has not been validated in children and those over 70. Current interpretive data was last reviewed 2021. Blood 10/25/2024 9:32 AM CDT 10/25/2024 10:17 AM CDT us Richard Gonzalez MD LAB BLOOD ORDERABLES Final Resu lt [facility] Department [place] [address] * Differential, auto (10/25/2024 9:32 AM CDT) Neutrophil abs 4.81 1.50 - 6.50 K/cumm Imm gran abs 0.03 0.00 - 0.10 K/cumm [facility] Lymphocyte abs 1.59 0.80 - 3.30 K/cumm [facility] Monocyte abs 0.63 0.20 - 0.80 K/cumm [facility] Eosinophil abs 0.18 0.00 - 0.50 K/cumm [facility] Basophil abs 0.05 0.00 - 0.10 K/cumm [facility] Neutrophil pct 66.0 % [facility] Comment: Interpretive Data Percent cell count reference ranges are not reported, since discordance with absolute values may lead to misinterpretation of CBC data. Current Interpretive Data was last revised on 2017. Imm gran pct 0.4 % [facility] Comment: Interpretive Data Percent cell count reference ranges are not reported, since discordance with absolute values may lead to misinterpretation of CBC data. Current Interpretive Data was last revised on 2017. Lymphocyte pct 21.8 % [facility] Comment: Interpretive Data Percent cell count reference ranges are not reported, since discordance with absolute values may lead to misinterpretation of CBC data. Current Interpretive Data was last revised on 2017. Monocyte pct 8.6 % [facility] Comment: Interpretive Data Percent cell count reference ranges are not reported, since discordance with absolute values may lead to misinterpretation of CBC data. Current Interpretive Data was last revised on 2017. Eosinophil pct 2.5 % [facility] Comment: Interpretive Data Percent cell count reference ranges are not reported, since discordance with absolute values may lead to misinterpretation of CBC data. Current Interpretive Data was last revised on 2017. Basophil pct 0.7 % [facility] Comment: Interpretive Data Percent cell count reference ranges are not reported, since discordance with absolute values may lead to misinterpretation of CBC data. Current Interpretive Data was last revised on 2017. Blood 10/25/2024 9:32 AM CDT 10/25/2024 10:17 AM CDT us Richard Gonzalez MD LAB BLOOD ORDERABLES Final Resu lt [facility] Department of Laboratories [place], [place] [id number] * CPAP aPTT algorithm (10/25/2024 9:32 AM CDT) aPTT 32 28 - 38 sec Comment: Interpretive Data Heparin therapeutic range: 66.0 - 100.0 seconds. Range based on correlation with therapeutic heparin activity range of 0.3 - 0.7 Units/mL. Current interpretive data was last revised on 2023. Blood 10/25/2024 9:32 AM CDT 10/25/2024 9:33 AM CDT us Briseyda Recio DRIVER OPERATOR LAB BLOOD ORDERABLES Final Result Performing Organization Address [facility]/ZIP Co de Phone Number [facility] Department [place] [address] * (ABNORMAL) Urinalysis reflex to microscopic and culture Urine, clean voided (10/25/2024 9:32 AM CDT) Color, ur Straw Yellow Clarity, ur Clear Clear [facility] Specific gravity, ur 1.023 1.003 - 1.030 [facility] pH, urine 5.5 [facility] Comment: Interpretive Data U rine pH is affected by diet, medications, systemic acid-base disturbances, and renal tubular function. pH may affect urinary stone formation. For example, urine pH below 6.0 may help reduce the tendency for calcium phosphate stones and pH greater than 6.0 may reduce the tendency for uric acid stone formation. Source: [facility] Current Interpretive Data was last revised on 2017 Protein, ur ql Negative Negative [facility] Glucose, ur ql Negative Negative [facility] Ketones, ur Negative Negative [facility] Bilirubin, ur Negative Negative [facility] Blood, ur Trace(A) Negative [facility] Urobilinogen, ur <2.0 <2.0 mg/dL [facility] Nitrite, ur Negative Negative [facility] Leukocyte esterase, ur Negative Negative [facility] UA reflex comment Reflex to microscopic UA will be performed. [facility] Urine, clean voided 10/25/2024 9:32 AM CDT 10/25/2024 9:33 AM CDT us Richard Gonzalez MD LAB MICROBIOLOGY - GENERAL SHAHANA DE LA CRUZ Final Result Performing Organization Address City/[facility] Co de Phone Number [facility] Department [place] [address] * CBC with auto differential (10/25/2024 9:32 AM CDT) [facility] WBC 7.29 3.80 - 9.90 K/cumm Hgb 15.9 13.0 - 17.5 g/dL [facility] Hct 46.8 38.9 - 50.3 % [facility] Plt 227 150 - 400 K/cumm [facility] MPV 9.1 9.1 - 12.3 fL [facility] RBC 5.19 4.30 - 5.80 M/cumm [facility] MCV 90.2 81.3 - 96.4 fL [facility] MCH 30.6 27.1 - 33.3 pg [facility] MCHC 34.0 32.3 - 35.7 g/dL [facility] RDW CV 13.0 11.1 - 14.9 % [facility] RDW SD 42.5 35.7 - 48.1 fL [facility] NRBC abs 0.00 0.00 - 0.01 K/cumm [facility] Blood 10/25/2024 9:32 AM CDT 10/25/2024 10:17 AM CDT Richard Gonzalez MD LAB BLOOD ORDERABLES Final Resu lt [facility] Department [place] [address] * (ABNORMAL) Vitamin D 25 hydroxy (10/25/2024 9:32 AM CDT) [facility] Vitamin D 25-OH 25(L) 30 - 80 ng/mL Blood 10/25/2024 9:32 AM CDT 10/25/2024 10:17 AM CDT Richard Gonzalez MD LAB BLOOD ORDERABLES Final [facility]u lt [facility] [place] [address] * (ABNORMAL) Urinalysis, microscopic only (10/25/2024 9:32 AM CDT) WBC, ur 0-5 0 - 5 /HPF RBC, ur 0-2 0 - 2 /HPF [facility] Mucous, ur Present(A) [facility] Culture Reflex Comment Reflex conditions for urine culture (WBC >10) not met. [facility] Urine, clean voided 10/25/2024 9:32 AM CDT 10/25/2024 10:12 AM CDT Richard Gonzalez MD LAB URINE ORDERABLES Final Resu lt Performing Organization Address [facility] [place] [address] * Protime-INR (10/25/2024 9:32 AM CDT) Pathologist [facility] [place] PT 10.3 9.7 - 13.0 sec INR 0.95 0.90 - 1.20 [facility] Comment: Interpretive data Oral anticoagulant therapeutic ranges: Venous thromboembolism prophylaxis or treatment: 2.0-3.0 CARDIOLOGY Standard range: 2.0-3.0 High-intensity range: 2.5-3.5 Refer to indication-specific guidelines for appropriate target ranges for prosthetic heart valve replacement. Current interpretive data was last revised on 2019. Blood 10/25/2024 9:32 AM CDT 10/25/2024 9:33 AM CDT Richard Gonzalez MD LAB BLOOD ORDERABLES Final Resu lt Performing Organization Address [facility]/[place] [address] * Basic metabolic panel (10/25/2024 9:32 AM CDT) Pathologist [facility] Sodium 144 135 - 145 mmol/L Potassium, pl 4.6 3.3 - 4.9 mmol/L [facility] Chloride 107 97 - 110 mmol/L [facility] CO2 26 22 - 32 mmol/L [facility] Anion gap 11 2 - 15 mmol/L [facility] BUN 12 6 - 25 mg/dL [facility] Creatinine 0.96 0.80 - 1.30 mg/dL [facility] Glucose 136 70 - 199 mg/dL [facility] Comment: Interpretive Data Fasting glucose >/= 126 mg/dl is diagnostic for diabetes. Fasting is defined as no caloric intake for at least 8 hours. Fasting glucose between 100 mg/dl to 125 mg/dl is diagnostic of prediabetes. In a patient with classic symptoms of hyperglycemia or hyperglycemic crisis, a random glucose >/= 200 mg/dl is diagnostic for diabetes. In the absence of unequivocal hyperglycemia, results should be confirmed by repeat testing. The classification and Diagnosis of Diabetes Diabetes Care 2021; 46: S19-S40. Current interpretive data was last revised 2022. Calcium 9.2 8.5 - 10.3 mg/dL [facility] Blood 10/25/2024 9:32 AM CDT 10/25/2024 10:17 AM CDT us Richard Gonzalez MD LAB BLOOD ORDERABLES Final Resu lt [facility] Department [place] [address] * (ABNORMAL) POCT hemoglobin A1c (10/25/2024 8:58 AM CDT) Hgb A1C, POC 6.3(H) 4.0 - 5.6 % Est Average Gluc POC 134 mg/dL [facility] Comment: The ADA recommends reporting an estimated Average Glucose (eAG) with all Hemoglobin A1c results using the equation derived from a study of 507 normal and diabetic adults. Minority populations were underrepresented and children were not included. (Diabetes Care 31:9451-5530, 2008). The eAG is not equivalent to a fasting glucose. Blood 10/25/2024 8:58 AM CDT 10/25/2024 8:58 AM CDT us Richard Gonzalez MD POINT OF CARE TEST ORDERABLES F inal Result [facility] Department [place] [address] * ECG 12 lead (10/25/2024 8:51 AM CDT) Pathologist [facility] [place] Ventricular Rate EKG/Min 63 BPM [facility] Atrial Rate 63 BPM [facility] NM-Interval (MSEC) 180 ms [facility] QRS-Interval (MSEC) 90 ms [facility] QT-Interval (MSEC) 446 ms [facility] QTc 456 ms [facility] P [place] 80 degrees [facility] R [place] -26 degrees [facility] T [place] 20 degrees [facility] Diagnosis Normal sinus rhythm Minimal voltage criteria for LVH, may be normal variant ( R in aVL ) Cannot rule out Anterior infarct , age undetermined Abnormal ECG No previous ECGs available Confirmed by Anthony HANEY, [facility] ([id number]) on 10/27/2024 12:40:39 AM [facility] 10/25/2024 8:51 AM CDT 10/27/2024 12:40 AM CDT us Briseyda Recio NP ECG ORDERABLES Final Result Performing Organization Address City/[facility] Co de Phone Number [facility] from Last [address] 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
--- OUTSIDE RECORDS SUMMARY | 2025-01-24 09:52 | XMS_ITS | Encounter Summary ---
Author Organization [facility] Healthcare Address [address] [place] [address] Care Team Providers Care Wheel Fitter Name Role Phone Johnnie Mcdonough MD Primary Care Provider [phone] Encounter Details Date Type Department Care Team (Late st Contact Info) Description 01/17/[address] 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 auris Comment:[facility] [id number] Weekly 11/16/2024 11/16/2024 11/19/2024 1:35 PM C DT documented as of this encounter Care Teams Wheel Fitter Relationship Specialty Start Date End Date Johnnie Mcdonough MD [address] [place] [address] PCP - General Internal Medicine 04/29/17 documented as of this encounter
--- OUTSIDE RECORDS SUMMARY | 2025-01-24 09:52 | XMS_ITS ---
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
[2025-01-24 10:03] LABS: Free T4 Free Thyroxine 1.12 ng/dL (0.78-2.19)
[2025-01-24 10:17] LABS: Prostate Specific Antigen 3.6 ng/mL (< OR = 4.0); Thyroid Stimulating Hormone 1.800 uIU/mL (0.465-4.680)
== END 2025-01-24 09:06 | disposition home or self-care (01) ==
LOC: CHSLAB 09:08
PROVIDERS: PCP Internal Medicine; Visit Provider Internal Medicine
DX: R13.12 Dysphagia, oropharyngeal phase (principal); E11.9 Type 2 diabetes mellitus without complications; E78.2 Mixed hyperlipidemia; I10 Essential (primary) hypertension; Z12.5 Encounter for screening for malignant neoplasm of prostate
CPT/HCPCS: 36415; 80053; 80061; 81003; 82043; 82550; 83036; 84153; 84439; 84443; 85027; G0103